=== PATIENT | male | born 1935 | race Caucasian/White ===

== ENCOUNTER 2016-09-07 14:04 | Inpatient (IN) | payer MEDICARE, OTHER ==
[2016-09-07] MEDS ORDERED: ONDANSETRON 4 MG/2 ML VIAL IVP STA (17:13)
[2016-09-07] MEDS ORDERED: SODIUM CHLORIDE 0.9% 1,000 ML IV STA ×2 (17:13→19:15)
[2016-09-07] MEDS ORDERED: FAMOTIDINE 20 MG/2 ML VIAL IV STA (17:13)
--- NOTE | 2016-09-07 17:15 | ED ---
Nausea/Vomiting/Diarrhea HPI - General Chief complaint: Nausea/Vomiting/Diarrhea Stated complaint: Dr Etta/Cristobal Pain Time Seen by Provider: 09/07/16 16:50 Source: patient Mode of arrival: wheelchair Limitations: no limitations - History of Present Illness Initial comments: Patient is an 80-year-old male with past medical history of COPD on 3 L nasal cannula presenting with nausea, vomiting, diarrhea for the past week. Patient states he is followed up with his primary care doctor who referred him to the ER. Patient states the last 24 hours he vomited 3 times. Vomit is brought in nature. Nonbloody vomit. Patient admits to 2 loose stools last 24 hours. Patient denies antibiotics, sick contacts, recent travel. Patient denies suspicious food. - Related Data Home Medications Medication Instructions Recorded Confirmed Budesonide [Pulmicort] 0.5 mg INHALATION RT-BID 12/28/13 09/07/16 Ranitidine HCl [Zantac] 150 mg PO BID 12/28/13 09/07/16 Aspirin EC [Ecotrin] 325 mg PO DAILY 02/20/16 09/07/16 Acetaminophen Tab [Tylenol] 325 - 650 mg PO Q4HR PRN 05/29/16 09/07/16 Albuterol Nebulized [Ventolin 2.5 mg INHALATION RT-Q6H 09/07/16 09/07/16 Nebulized] Atenolol [Tenormin] 25 mg PO DAILY 09/07/16 09/07/16 Diphenox-Atrop 2.5-0.025 mg 1 - 2 tab PO QID PRN 09/07/16 09/07/16 [Lomotil] traZODone HCL 50 - 100 mg PO HS PRN 09/07/16 09/07/16 Previous Rx's Medication Instructions Recorded Tamsulosin [Flomax] 0.4 mg PO [id number] #30 cap.er.24h 06/04/16 Allergies Allergy/AdvReac Type Severity Reaction Status Date / Time ceftriaxone sodium Allergy Itching Verified 09/07/16 17:10 [From Rocephin] Iodinated Contrast Media - Allergy Anaphylaxis Verified 09/07/16 17:10 Oral and [Iodinated Contrast Media - IV Dye] levofloxacin Allergy Itching Verified 09/07/16 17:10 Review of Systems ROS Statement: Those systems with pertinent positive or pertinent negative responses have been documented in the HPI. Constitutional: No fever and no chills. HENT: No congestion, no rhinorrhea and no sore throat. Eyes: No discharge and no redness. Respiratory: No cough and no shortness of breath. Cardiovascular: No chest pain and no palpitations. Gastrointestinal: Positive for nausea/vomiting/diarrhea. No abdominal pain Genitourinary: No dysuria and no hematuria. Musculoskeletal: No back pain and no arthralgias. Skin: No pallor and no rash. Neurological: No dizziness and No headaches. ROS Other: All systems not noted in ROS Statement are negative. Past Medical History Past Medical History: Cancer, Heart Failure, COPD, Deep Vein Thrombosis (DVT), GERD/Reflux, Hyperlipidemia, Hypertension, Pneumonia, Prostate Disorder Additional Past Medical History / Comment(s): 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 History of Any Multi-Drug Resistant Organisms: None Reported Past Surgical History: Appendectomy, Tonsillectomy Additional Past Surgical History / Comment(s): AAA, NAYAN ROTATOR CUFF,NAYAN THUMB SX, LARYNGOSCOPY FOR HORSENESS,LT VOCAL CORD WEAKNESS.NEEDLE ASPIRATION LT LUNG MASS WAS POSITIVE FOR CANCER -PT STATED HE COMPLETED 5 RADIATION TREATMENTS. Past Anesthesia/Blood Transfusion Reactions: No Reported Reaction Additional Past Anesthesia/Blood Transfusion Reaction / Comment(s): blood transfusion Past Psychological History: No Psychological Hx Reported Additional Psychological History / Comment(s): pt currently lives at [facility]. able to care for self cook/bath PTS DAUGHTER AND GRAND DAUGHTER ARE HELPING OUT.. 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 Smoking Status: Former smoker Past Alcohol Use History: None Reported Additional Past Alcohol Use History / Comment(s): STARTED SMOKING AT AGE 18 QUIT 2006 SMOKED 1 PPD Past Drug Use History: None Reported - Past Family History Father Family Medical History: Coronary Artery Disease (CAD) Mother Additional Family Medical History / Comment(s): ANEMIA General Exam - General Exam Comments Initial Comments: Constitutional: Patient appears well-developed and well-nourished. No distress. Actively vomiting. Head: Normocephalic and atraumatic. Eyes: Conjunctivae and EOM are normal. Right eye exhibits no discharge. Left eye exhibits no discharge. No scleral icterus. Neck: Normal range of motion. Neck supple. Cardiovascular: Normal rate and regular rhythm. No murmur heard. Pulmonary/Chest: Effort normal and breath sounds normal. No respiratory distress. No wheezes. Abdominal: Soft. No distension. There is no tenderness. There is no rebound and no guarding. Musculoskeletal: Normal range of motion. No edema or tenderness. Neurological: Patient alert and oriented to person, place, and time. Skin: Skin is warm and dry. Not diaphoretic. Nursing notes and vitals reviewed. Limitations: no limitations Course Vital Signs 09/07/16 14:41 Temperature 97.9 F Pulse Rate 63 Respiratory 18 Rate Blood Pressure 90/50 O2 Sat by Pulse 92 L Oximetry - Reevaluation(s) Reevaluation #1: 09/07/16 19:08 Patient was resting in bed. Course of stay unchanged - patient with intermittent episodes of vomiting. Denies pain. Discussed physical exam and diagnostic tests with patient. Questions answered and patient is agreeable to staying in the hospital. Medical Decision Making - Medical Decision Making Patient is a 1-year-old male with nausea vomiting diarrhea for the past week. Patient with potassium 2.5 and creatinine bumped from 1.35 to 3.29. Patient with persistent nausea and vomiting. IV fluids started. Discussed H&P and pertinent diagnostic tests with admitting physician who agrees with plan and accepts admission of patient. - Lab Data Result diagrams: 09/07/16 17:39 09/07/16 17:39 Lab Results 09/07/16 09/07/16 09/07/16 Range/Units 17:39 17:39 18:24 WBC 4.6 (3.8-10.6) k/uL RBC 4.04 L (4.30-5.90) m/uL Hgb 13.0 D (13.0-17.5) gm/dL Hct 40.1 (39.0-53.0) % MCV 99.0 (80.0-100.0) fL MCH 32.1 (25.0-35.0) pg MCHC 32.4 (31.0-37.0) g/dL RDW 14.3 (11.5-15.5) % Plt Count 236 (150-450) k/uL Neutrophils % 63 % Lymphocytes % 25 % Monocytes % 7 % Eosinophils % 3 % Basophils % 0 % Neutrophils # 2.9 (1.3-7.7) k/uL Lymphocytes # 1.2 (1.0-4.8) k/uL Monocytes # 0.3 (0-1.0) k/uL Eosinophils # 0.1 (0-0.7) k/uL Basophils # 0.0 (0-0.2) k/uL Sodium 139 (137-145) mmol/L Potassium 2.5 L* (3.5-5.1) mmol/L Chloride 95 L (98-107) mmol/L Carbon Dioxide 27 (22-30) mmol/L Anion Gap 17 mmol/L BUN 18 (9-20) mg/dL Creatinine 3.29 H (0.66-1.25) mg/dL Est GFR (MDRD) Af Amer 22 (>60 ml/min/1.73 sqM) Est GFR (MDRD) Non-Af 18 (>60 ml/min/1.73 sqM) Glucose 115 H (74-99) mg/dL Calcium 9.0 (8.4-10.2) mg/dL Magnesium 1.8 (1.6-2.3) mg/dL Total Bilirubin 0.7 (0.2-1.3) mg/dL AST 18 (17-59) U/L ALT 20 L (21-72) U/L Alkaline Phosphatase 93 (38-126) U/L Total Protein 6.3 (6.3-8.2) g/dL Albumin 3.5 (3.5-5.0) g/dL Lipase 59 (23-300) U/L Urine Color Yellow Urine Appearance Turbid (Clear) Urine pH 7.0 (5.0-8.0) Ur Specific [place] 1.010 (1.001-1.035) Urine Protein 1+ H (Negative) Urine Glucose (UA) Negative (Negative) Urine Ketones Negative (Negative) Urine Blood Small H (Negative) Urine Nitrate Positive (Negative) Urine Bilirubin Negative (Negative) Urine Urobilinogen <2.0 (<2.0) mg/dL Ur Leukocyte Esterase Large H (Negative) Urine RBC 13 H (0-5) /hpf Urine WBC >182 H (0-5) /hpf Ur Squamous Epith Cells 1 (0-4) /hpf Urine Bacteria Few H (None) /hpf Hyaline Casts 16 H (0-2) /lpf Urine Yeast (Budding) Few H (None) /hpf Disposition Clinical Impression: Dehydration, THUY (acute kidney injury), Hypokalemia, Nausea vomiting and diarrhea Disposition: ADMITTED IP TO THIS [facility] Condition: Good Referrals: Diogo Junior MD [Primary Care Provider] - 1-2 days
[2016-09-07 17:51] LABS: Basophils % (A) 0 %; CHCM 33.5; Eosinophils # (A) 0.1 k/uL (0-0.7); Eosinophils % (A) 3 %; HCT 40.1 % (39.0-53.0); HDW 3.28; Luc # (Auto) 0.11; Luc % (Auto) 3; Lymphocytes # (A) 1.2 k/uL (1.0-4.8); Lymphocytes % (A) 25 %; MCH 32.1 pg (25.0-35.0); MCHC 32.4 g/dL (31.0-37.0); Mean Platelet Volume 7.4; Monocytes # (A) 0.3 k/uL (0-1.0); Monocytes % (A) 7 %; Neutrophils # (A) 2.9 k/uL (1.3-7.7); Neutrophils % (A) 63 %; RBC 4.04 m/uL (4.30-5.90); RDW 14.3 % (11.5-15.5); WBC 4.6 k/uL (3.8-10.6); WBC (Perox) 4.62
[2016-09-07 17:58] LABS: Magnesium 1.8 mg/dL (1.6-2.3); Total Bilirubin 0.7 mg/dL (0.2-1.3); Total Protein 6.3 g/dL (6.3-8.2)
[2016-09-07 18:09] LABS: Potassium 2.5 mmol/L (3.5-5.1)
[2016-09-07] MEDS ORDERED: POTASSIUM CHLORIDE ORAL LIQUID 40 MEQ/30 ML CUP PO ONE (18:10)
[2016-09-07] MEDS ORDERED: POTASSIUM CHLORIDE 40 MEQ in WATER FOR INJECTION 1 100ML.BAG IVPB STA (18:14)
[2016-09-07 18:42] LABS: Appearance,Urine Turbid (Clear); Bacteria,Urine Few /hpf; Bilirubin,Urine Negative (Negative); Glucose,Urine (UA) Negative (Negative); Ketones,Urine Negative (Negative); Leukocyte Esterase,Urine Large (Negative); Nitrite,Urine Positive (Negative); Particle Count 23716; Protein,Urine 1+ (Negative); RBC,Urine 13 /hpf (0-5); Squamous Epithelial Cell,Urine 1 /hpf (0-4); UA Billing (MACRO vs. MICRO) MICRO; Urobilinogen,Urine <2.0 mg/dL (<2.0); WBC,Urine >182 /hpf (0-5)
[2016-09-07] MEDS ORDERED: NALOXONE 0.4 MG/ML 1 ML VIAL IV PRN (19:11)
[2016-09-07] MEDS ORDERED: SODIUM CHLORIDE 0.9% 1,000 ML IV ONE (19:11)
[2016-09-07] MEDS ORDERED: ONDANSETRON 4 MG/2 ML VIAL IVP PRN (19:11)
[2016-09-07] MEDS: BUDESONIDE 0.5 MG/2 ML NEBU INHALATION SCH (21:54)
[2016-09-07] MEDS: ALBUTEROL NEBULIZED 2.5 MG/3 ML INHALATION SCH (21:54)
[2016-09-07] MEDS: POTASSIUM CHLORIDE 10 MEQ, LIDOCAINE 2% INJ 10 MG in SODIUM CHLORIDE 0.9% 100 ML IVPB SCH (22:44)
[2016-09-08] MEDS: POTASSIUM CHLORIDE 10 MEQ, LIDOCAINE 2% INJ 10 MG in SODIUM CHLORIDE 0.9% 100 ML IVPB SCH ×7 (00:52→13:34)
[2016-09-08] MEDS: ALBUTEROL NEBULIZED 2.5 MG/3 ML INHALATION SCH ×4 (02:16→19:33)
[2016-09-08] MEDS: PANTOPRAZOLE 40 MG/10 ML VIAL IV SCH (08:22)
[2016-09-08] MEDS: ATENOLOL 25 MG TAB PO SCH (08:22)
[2016-09-08] MEDS: BUDESONIDE 0.5 MG/2 ML NEBU INHALATION SCH ×2 (09:17→19:33)
[2016-09-08] MEDS ORDERED: ACETAMINOPHEN TAB 325 MG TAB PO PRN (10:47)
[2016-09-08] MEDS ORDERED: DIPHENOX-ATROP 2.5-0.025 MG 1 EACH TAB PO PRN (10:48)
[2016-09-08] MEDS ORDERED: traZODone HCL 50 MG TAB PO PRN (10:48)
[2016-09-08] MEDS ORDERED: PANTOPRAZOLE 40 MG/10 ML VIAL IVP SCH (11:00)
--- NOTE | 2016-09-08 11:13 | P.HPIM ---
History of Present Illness H&P Date: 09/08/16 Chief Complaint: Intractable nausea vomiting diarrhea 80-year-old presented to the emergency room after being seen by his primary care provider in the office for a chief complaint of experiencing nausea vomiting diarrhea for the past week. Patient was advised to come to the emergency room to be evaluated for the above-mentioned symptoms. Patient stated that he had been vomiting and had vomited at least 3 times in the last 24 hours and had 2 loose stools. There was no blood noted in the vomit that was no blood noted in the stool. Patient admits to poor oral intake. Patient also states he has been feeling fatigued no appetite patient has a history of COPD uses supplemental home oxygen 3 L [id number]. Additionally the patient has a history of lung cancer which the patient has completed radiation treatment. Patient stated he was not experiencing any shortness of breath just the intractable nausea vomiting and loose stool. In the emergency room the temp is 97.9 heart rate was in the 60s. Patient's potassium was 2.5 the creatinine was up to 3.2. Hemoglobin stable at 13. Given the above clinical presentation the patient was advised to be admitted to the hospital for further evaluation. IV fluid has been initiated. Patient has had 2 loose stools with no blood noted since 7 AM. There is been adequate urine output patient has an indwelling Akins catheter which is chronic. Patient states he has not been on any antibiotic therapy. Patient also reports there is been no new medication changes. Patient states he gets his indwelling Akins catheter changed monthly and is due to be changed tomorrow on the Review of Systems Essentially unremarkable except as mentioned in the present illness Past Medical History Past Medical History: Cancer, Heart Failure, COPD, Deep Vein Thrombosis (DVT), GERD/Reflux, Hyperlipidemia, Hypertension, Pneumonia, Prostate Disorder Additional Past Medical History / Comment(s): 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 History of Any Multi-Drug Resistant Organisms: None Reported Past Surgical History: Appendectomy, Tonsillectomy Additional Past Surgical History / Comment(s): AAA, NAYAN ROTATOR CUFF,NAYAN THUMB SX, LARYNGOSCOPY FOR HORSENESS,LT VOCAL CORD WEAKNESS.NEEDLE ASPIRATION LT LUNG MASS WAS POSITIVE FOR CANCER -PT STATED HE COMPLETED 5 RADIATION TREATMENTS. Past Anesthesia/Blood Transfusion Reactions: No Reported Reaction Additional Past Anesthesia/Blood Transfusion Reaction / Comment(s): blood transfusion Past Psychological History: No Psychological Hx Reported Additional Psychological History / Comment(s): pt currently lives at [facility]. able to care for self cook/bath PTS DAUGHTER AND GRAND DAUGHTER ARE HELPING OUT.. 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 Smoking Status: Former smoker Past Alcohol Use History: None Reported Additional Past Alcohol Use History / Comment(s): STARTED SMOKING AT AGE 18 QUIT 2006 SMOKED 1 PPD Past Drug Use History: None Reported - Past Family History Father Family Medical History: Coronary Artery Disease (CAD) Mother Additional Family Medical History / Comment(s): ANEMIA Medications and Allergies Home Medications Medication Instructions Recorded Confirmed Type Budesonide [Pulmicort] 0.5 mg INHALATION RT-BID 12/28/13 09/07/16 History Ranitidine HCl [Zantac] 150 mg PO BID 12/28/13 09/07/16 History Aspirin EC [Ecotrin] 325 mg PO DAILY 02/20/16 09/07/16 History Acetaminophen Tab [Tylenol] 325 - 650 mg PO Q4HR PRN 05/29/16 09/07/16 History Albuterol Nebulized [Ventolin 2.5 mg INHALATION RT-Q6H 09/07/16 09/07/16 History Nebulized] Atenolol [Tenormin] 25 mg PO DAILY 09/07/16 09/07/16 History Diphenox-Atrop 2.5-0.025 mg 1 - 2 tab PO QID PRN 09/07/16 09/07/16 History [Lomotil] traZODone HCL 50 - 100 mg PO HS PRN 09/07/16 09/07/16 History Allergies Allergy/AdvReac Type Severity Reaction Status Date / Time ceftriaxone sodium Allergy Itching Verified 09/07/16 17:10 [From Rocephin] Iodinated Contrast Media - Allergy Anaphylaxis Verified 09/07/16 17:10 Oral and [Iodinated Contrast Media - IV Dye] levofloxacin Allergy Itching Verified 09/07/16 17:10 Physical Exam Vitals: Vital Signs Temp Pulse Pulse Resp BP BP Pulse Ox 09/08/16 09:30 70 09/08/16 09:18 64 09/08/16 08:00 97 F L 50 L 16 109/56 93 L 09/08/16 04:00 97.0 F L 72 18 91/50 99 09/08/16 00:00 97.1 F L 73 18 102/58 98 09/07/16 22:12 70 09/07/16 21:55 70 09/07/16 19:59 98.0 F 67 16 115/56 96 Intake and Output 09/07/16 09/08/16 09/08/16 22:59 06:59 14:59 Other: Voiding Method Indwelling Catheter Indwelling Catheter # Bowel Movements 4 Weight 42.184 kg 48 kg 48 kg Patient Weight 09/09/16 06:59 Weight 48 kg GENERAL APPEARANCE: 80-year-old male patient is alert, oriented, in no acute distress. Sitting up in bed states less nausea no active vomiting VITAL SIGNS: Reviewed HEENT: Head is normocephalic and atraumatic. Pupils are equal and reactive. The nares are patent. Oropharynx is clear without lesions. NECK: Supple without lymphadenopathy. Traches midline. HEART: S1, S2. Regular rate and rhythm. Denying chest pain LUNGS: No audible wheezing no shortness of breath at rest no cough noted nasal cannula 3 L keeping a sat of 93% ABDOMEN: Soft, nontender, nondistended with good bowel sounds. No peritoneal signs. No palpable organomegaly or masses. Indwelling Akins catheter in place. This been 2 loose stools since 7 AM with 4 loose stools during the night no blood noted in the stool EXTREMITIES: Normal skin color and turgor. No cyanosis, rash, ulceration, clubbing or edema. Radial pedal pulses are 2/4 bilaterally. NEUROLOGICAL: No focal deficits. Strength and sensation are grossly intact. Results CBC & Chem 7: 09/07/16 17:39 09/08/16 06:11 Labs: Abnormal Lab Results - Last 24 Hours (Table) 09/08/16 Range/Units 06:11 Potassium 3.0 L* (3.5-5.1) mmol/L Thrombosis Risk Factor Assmnt - Choose All That Apply Each Risk Factor Represents 3 Points: Age 75 years or older Thrombosis Risk Factor Assessment Total Risk Factor Score: 3 Thrombosis Risk Factor Assessment Level: Moderate Risk Assessment and Plan Plan: Impression Present on admission intractable nausea vomiting diarrhea with clinical dehydration unclear etiology Present on admission severe electrolyte imbalance hypokalemic suspect due to intractable nausea vomiting diarrhea History of urinary retention with chronic indwelling Akins catheter changed monthly echocardiogram May 2016 EF 50-55% History of a left lung mass with needle biopsy confirmed cancer status post radiation treatment completed August 2015 History of nicotine dependency quit in 2005 smoke one pack a day greater than 40 year history Acute on chronic hypoxic respiratory failure Present on admission acute kidney injury suspect due to volume depletion Chronic kidney disease stage III likely due to nephrosclerosis 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 diff stool culture ovarian parasites DVT and GI prophylaxis Resume respiratory treatments as ordered Further or conditions pending will follow The above dictated assessment and findings were discussed with Dr. Junior. Impression and the plan of care have been dictated as directed. Paula Chavarria nurse practitioner acting as a scribe for Dr. Junior
[2016-09-08] MEDS: guaiFENesin-Coden 100-10MG/5ML 10 ML CUP PO PRN ×3 (11:15→23:41)
[2016-09-08] MEDS: SODIUM CHLORIDE 0.9% 1,000 ML IV SCH ×2 (11:15→23:41)
--- NOTE | 2016-09-08 12:10 | P.NPCON ---
History of Present Illness - Reason for Consult acute renal failure - History of Present Illness Reason for consultation: Acute kidney injury History of present illness: Patient is a 80-year-old male seen in renal consultation for acute kidney injury. His creatinine was elevated at 3.29 at the time of admission. He was also hypotensive with systolic blood pressure in the 90s. He presented with nausea vomiting and diarrhea going on for the last week or so. He has not been tolerating any oral intake. He has a chronic Akins catheter in place and has been nonoliguric. Denies any chest pain or shortness of breath. No lower extremity edema. He was also hypokalemic with a potassium level of 2.5 which was aggressively replaced and is improved to 3.0 this morning. No vomiting since admission. Did have loose bowel movement this morning. Denies use of NSAIDs at home. Denies any prior history of renal disease. Vital signs are stable. General: The patient appeared well nourished and normally developed. HEENT: Head exam is unremarkable. Neck is without jugular venous distension. LUNGS: Lungs are clear to auscultation and percussion. Breath sounds decreased. HEART: Rate and Rhythm are regular. First and second heart sounds normal. No murmurs, rubs or gallops. ABDOMEN: Abdominal exam reveals normal bowel sounds. Non-tender and non- distended. No evidence of peritonitis. EXTREMITITES: No clubbing, cyanosis, or edema. Past Medical History Past Medical History: Cancer, Heart Failure, COPD, Deep Vein Thrombosis (DVT), GERD/Reflux, Hyperlipidemia, Hypertension, Pneumonia, Prostate Disorder Additional Past Medical History / Comment(s): 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 History of Any Multi-Drug Resistant Organisms: None Reported Past Surgical History: Appendectomy, Tonsillectomy Additional Past Surgical History / Comment(s): AAA, NAYAN ROTATOR CUFF,NAYAN THUMB SX, LARYNGOSCOPY FOR HORSENESS,LT VOCAL CORD WEAKNESS.NEEDLE ASPIRATION LT LUNG MASS WAS POSITIVE FOR CANCER -PT STATED HE COMPLETED 5 RADIATION TREATMENTS. Past Anesthesia/Blood Transfusion Reactions: No Reported Reaction Additional Past Anesthesia/Blood Transfusion Reaction / Comment(s): blood transfusion Past Psychological History: No Psychological Hx Reported Additional Psychological History / Comment(s): pt currently lives at [facility]. able to care for self cook/bath PTS DAUGHTER AND GRAND DAUGHTER ARE HELPING OUT.. 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 Smoking Status: Former smoker Past Alcohol Use History: None Reported Additional Past Alcohol Use History / Comment(s): STARTED SMOKING AT AGE 18 QUIT 2006 SMOKED 1 PPD Past Drug Use History: None Reported - Past Family History Father Family Medical History: Coronary Artery Disease (CAD) Mother Additional Family Medical History / Comment(s): ANEMIA Medications and Allergies Home Medications Medication Instructions Recorded Confirmed Type Budesonide [Pulmicort] 0.5 mg INHALATION RT-BID 12/28/13 09/07/16 History Ranitidine HCl [Zantac] 150 mg PO BID 12/28/13 09/07/16 History Aspirin EC [Ecotrin] 325 mg PO DAILY 02/20/16 09/07/16 History Acetaminophen Tab [Tylenol] 325 - 650 mg PO Q4HR PRN 05/29/16 09/07/16 History Albuterol Nebulized [Ventolin 2.5 mg INHALATION RT-Q6H 09/07/16 09/07/16 History Nebulized] Atenolol [Tenormin] 25 mg PO DAILY 09/07/16 09/07/16 History Diphenox-Atrop 2.5-0.025 mg 1 - 2 tab PO QID PRN 09/07/16 09/07/16 History [Lomotil] traZODone HCL 50 - 100 mg PO HS PRN 09/07/16 09/07/16 History Allergies Allergy/AdvReac Type Severity Reaction Status Date / Time ceftriaxone sodium Allergy Itching Verified 09/07/16 17:10 [From Rocephin] Iodinated Contrast Media - Allergy Anaphylaxis Verified 09/07/16 17:10 Oral and [Iodinated Contrast Media - IV Dye] levofloxacin Allergy Itching Verified 09/07/16 17:10 Physical Exam Vitals: Vital Signs Temp Pulse Pulse Resp BP BP Pulse Ox 09/08/16 09:30 70 09/08/16 09:18 64 09/08/16 08:00 97 F L 50 L 16 109/56 93 L 09/08/16 04:00 97.0 F L 72 18 91/50 99 09/08/16 00:00 97.1 F L 73 18 102/58 98 09/07/16 22:12 70 09/07/16 21:55 70 09/07/16 19:59 98.0 F 67 16 115/56 96 Intake and Output 09/07/16 09/08/16 09/08/16 22:59 06:59 14:59 Other: Voiding Method Indwelling Catheter Indwelling Catheter # Bowel Movements 4 Weight 42.184 kg 48 kg 48 kg Patient Weight 09/09/16 06:59 Weight 48 kg Results - Lab Results Most recent lab results Calcium 9.0 mg/dL (8.4-10.2) 09/07/16 17:39 Magnesium 1.8 mg/dL (1.6-2.3) 09/07/16 17:39 09/07/16 17:39 09/08/16 06:11 Assessment and Plan Plan: Assessment: #1. Nonoliguric acute kidney injury mostly prerenal in nature secondary to severe intravascular volume depletion secondary to vomiting and diarrhea as well as hypotension. Creatinine 3.29 on admission. Baseline creatinine is near 1. #2. Hypokalemia secondary to GI as well as renal losses. Magnesium level I.8. #3. History of urinary retention with a chronic indwelling Akins catheter in place. #4. Intractable nausea vomiting and diarrhea. Likely viral syndrome. Improved. Plan: Continue normal saline to be run at 75 mL an hour. Replace potassium. Recheck in the evening. Check renal ultrasound. Avoid nephrotoxic agents and hypotensive episodes. Repeat electrolytes in the morning. Akins catheter is changed every month and is due to be changed tomorrow. Will get it changed this admission. Thank you for the consultation. I will continue to follow the patient with you during his hospital stay.
--- NOTE | 2016-09-08 16:43 | US ---
EXAMINATION TYPE: US kidneys/renal and bladder DATE OF EXAM: 09/08/2016 12:38 PM COMPARISON: Prior exam dated 14 June 2014 ultrasound kidneys and bladder, CT scan 29 May 2016 abdomen pelvis CLINICAL HISTORY: lily. EXAM MEASUREMENTS: Right Kidney: 8.0 x 4.1 x 3.4 cm Left Kidney: 7.3 x 4.1 x 4.0 cm TECHNOLOGIST IMPRESSION: wnl Right Kidney: cyst noted 1.7 x 1.9 x 1.8, atrophied kidney, cortical thinning is present. Left Kidney: atrophied kidney the left kidney measures 7.3 cm, there is increased cortical echogenici ty, cortical thinning is present bilaterally. Bladder: navas Simple cyst midpole right kidney is stable. Small right kidney size. No hydronephrosis. IMPRESSION: Similar findings to previous exam. Findings compatible with chronic medical renal disease.
--- NOTE | 2016-09-09 05:09 | HP ---
DATE OF ADMISSION: CHIEF COMPLAINT: CA of the lung. HISTORY OF PRESENT ILLNESS: This is another admission for this 80-year-old white male. He came to the office after he had nausea and vomiting with diarrhea for several days. He had lost 11 pounds in a week. He was admitted. He was found to have potassium 2.9 and his creatinine was up to over 3. REVIEW OF SYSTEMS: He had no headache, confusion, fever, chills, cough, hemoptysis, hematemesis, melena, hematochezia, jaundice, etc. Past medical history, family history and personal and social histories are all otherwise unremarkable or noncontributory or unchanged. He has terminal CA of the lung. PHYSICAL EXAMINATION: Blood pressure was 96/40 with a pulse of 76 and regular, respirations 15, and temperature 99. GENERAL: He appeared to be pale and dehydrated. He was acutely ill in appearance. Skins was dry. Lymph nodes are not enlarged. Head, ears, eyes, nose, mouth, and throat were normal. Neck veins not distended. Thyroid was not enlarged. Chest is clear, but breath sounds are diminished throughout. Cardiac exam demonstrated sinus rhythm. The abdomen is scaphoid and nontender. Bowel sounds were heard. EXTREMITIES: Normal. NEUROLOGICAL: He is intact. He was dehydrated. IMPRESSION: 1. Dehydration. 2. Gastroenteritis with vomiting and diarrhea. 3. Electrolyte imbalance. 4. Prerenal azotemia. 5. Chronic obstructive pulmonary disease. 6. Cancer of the lung. PLAN: 1. Bed rest. 2. IV fluids. 3. Correct electrolyte imbalance.
--- NOTE | 2016-09-09 05:11 | PN ---
DATE OF SERVICE: 09/08/2016 CHIEF COMPLAINT: Renal failure, dehydration, and gastroenteritis with CA of the lung. HISTORY OF PRESENT ILLNESS: This gentleman is not doing much better. Potassium has been corrected and creatinine is starting to come down. He is still nauseated. He is not eating or drinking. PHYSICAL EXAM: He is still dehydrated. Breath sounds are poor. Cardiac exam is normal and unchanged. Abdomen is soft. IMPRESSION: 1. Gastroenteritis. 2. Dehydration. 3. Prerenal azotemia. 4. Chronic obstructive pulmonary disease. 5. Cancer of the lung. PLAN: Continue with rehydration.
[2016-09-09 06:45] LABS: Calcium 7.8 mg/dL (8.4-10.2); Potassium 3.3 mmol/L (3.5-5.1); Total Bilirubin 0.6 mg/dL (0.2-1.3); Total Protein 4.3 g/dL (6.3-8.2)
[2016-09-09 06:56] LABS: Basophils % (A) 1 %; CH 32.4; CHCM 32.2; Eosinophils # (A) 0.5 k/uL (0-0.7); Eosinophils % (A) 15 %; HCT 30.1 % (39.0-53.0); HDW 3.23; Hypochromasia Slight; Luc # (Auto) 0.04; Luc % (Auto) 1; Lymphocytes # (A) 0.7 k/uL (1.0-4.8); Lymphocytes % (A) 19 %; MCH 32.5 pg (25.0-35.0); MCV 101.5 fL (80.0-100.0); Macrocytosis Slight; Monocytes # (A) 0.3 k/uL (0-1.0); Monocytes % (A) 8 %; Neutrophils # (A) 2.1 k/uL (1.3-7.7); Neutrophils % (A) 56 %; RBC 2.97 m/uL (4.30-5.90); RDW 14.5 % (11.5-15.5); WBC 3.7 k/uL (3.8-10.6); WBC (Perox) 3.72
[2016-09-09] MEDS ORDERED: Potassium Replacement Protocol 1 EACH MISC MISCELLANE PRN (07:02)
[2016-09-09 07:32] LABS: HGB 9.6 gm/dL (13.0-17.5)
[2016-09-09 07:40] LABS: Amorphous Sediment,Urine Occasional /hpf; Appearance,Urine Turbid (Clear); Bacteria,Urine Many /hpf; Bilirubin,Urine Negative (Negative); Glucose,Urine (UA) Negative (Negative); Ketones,Urine Trace (Negative); Leukocyte Esterase,Urine Large (Negative); Nitrite,Urine Positive (Negative); PH, Urine 8.5 (5.0-8.0); Particle Count 63095; Protein,Urine 3+ (Negative); RBC,Urine 9 /hpf (0-5); Specific Gravity,Urine 1.011 (1.001-1.035); Squamous Epithelial Cell,Urine 3 /hpf (0-4); UA Billing (MACRO vs. MICRO) MICRO; Urobilinogen,Urine <2.0 mg/dL (<2.0); WBC,Urine 60 /hpf (0-5)
[2016-09-09] MEDS ORDERED: POTASSIUM CHLORIDE ER 20 MEQ TAB.ER PO SCH (08:00)
[2016-09-09] MEDS: BUDESONIDE 0.5 MG/2 ML NEBU INHALATION SCH ×2 (08:08→20:15)
[2016-09-09] MEDS: ALBUTEROL NEBULIZED 2.5 MG/3 ML INHALATION SCH ×4 (08:09→20:15)
[2016-09-09] MEDS: ASPIRIN 325 MG TAB PO SCH (08:32)
[2016-09-09] MEDS: PANTOPRAZOLE 40 MG/10 ML VIAL IV SCH (08:32)
[2016-09-09] MEDS: TAMSULOSIN 0.4 MG CAP.ER.24H PO SCH (08:33)
[2016-09-09] MEDS: ATENOLOL 25 MG TAB PO SCH (08:33)
[2016-09-09] MEDS: POTASSIUM CHLORIDE 20 MEQ, LIDOCAINE 2% INJ 20 MG in SODIUM CHLORIDE 0.9% 100 ML IVPB SCH ×2 (08:34→12:42)
[2016-09-09] MEDS: POTASSIUM CHLORIDE ER 20 MEQ TAB.ER PO SCH ×2 (08:34→12:43)
--- NOTE | 2016-09-09 09:19 | P.PN ---
Subjective Patient is seen in follow-up for acute kidney injury. Patient presented with nausea vomiting and diarrhea going on for the past 1 week. He was also somewhat hypotensive on admission. He continues to have diarrhea. Appetite remains poor. His creatinine was re-0.2 and at the time of admission and is improved to 2.03 today. Denies chest pain or shortness of breath. Vital signs are stable. General: The patient appeared well nourished and normally developed. HEENT: Head exam is unremarkable. Neck is without jugular venous distension. LUNGS: Lungs are clear to auscultation and percussion. Breath sounds decreased. HEART: Rate and Rhythm are regular. First and second heart sounds normal. No murmurs, rubs or gallops. ABDOMEN: Abdominal exam reveals normal bowel sounds. Non-tender and non- distended. No evidence of peritonitis. EXTREMITITES: No clubbing, cyanosis, or edema. Objective - Vital Signs Vital signs: Vital Signs Temp 97.1 F L 09/09/16 08:00 Pulse 70 09/09/16 08:24 Resp 16 09/09/16 08:00 BP 106/56 09/09/16 08:00 Pulse Ox 97 09/09/16 08:10 Intake & Output 09/08/16 09/09/16 09/09/16 18:59 06:59 18:59 Intake Total 960 Output Total 800 1100 Balance -800 -140 Weight 48 kg 45.9 kg Intake: IV 300 Sodium Chloride 0.9% 1, 300 000 ml @ 75 mls/hr IV . [id number] KEL Rx#:[id number] Intake, IV Titration 300 Amount Sodium Chloride 0.9% 1, 300 000 ml @ 75 mls/hr IV . [id number] KEL Rx#:[id number] Oral 360 Output: Urine 800 1100 Other: Voiding Method Indwelling Catheter Indwelling Catheter # Voids 2 # Bowel Movements 1 2 - Labs CBC & Chem 7: 09/09/16 05:50 09/09/16 05:50 Labs: Abnormal Lab Results - Last 24 Hours (Table) 09/09/16 09/09/16 09/09/16 Range/Units 05:50 05:50 06:30 WBC 3.7 L (3.8-10.6) k/uL RBC 2.97 L (4.30-5.90) m/uL Hgb 9.6 L D (13.0-17.5) gm/dL Hct 30.1 L (39.0-53.0) % MCV 101.5 H (80.0-100.0) fL Lymphocytes # 0.7 L (1.0-4.8) k/uL Potassium 3.3 L (3.5-5.1) mmol/L Chloride 113 H (98-107) mmol/L Creatinine 2.03 H (0.66-1.25) mg/dL Glucose 66 L (74-99) mg/dL Calcium 7.8 L (8.4-10.2) mg/dL Total Protein 4.3 L (6.3-8.2) g/dL Albumin 2.2 L (3.5-5.0) g/dL Urine pH 8.5 H (5.0-8.0) Urine Protein 3+ H (Negative) Urine Ketones Trace H (Negative) Ur Leukocyte Esterase Large H (Negative) Urine RBC 9 H (0-5) /hpf Urine WBC 60 H (0-5) /hpf Amorphous Sediment Occasional H (None) /hpf Urine Bacteria Many H (None) /hpf Assessment and Plan Plan: Assessment: #1. Nonoliguric acute kidney injury mostly prerenal in nature secondary to severe intravascular volume depletion secondary to vomiting and diarrhea as well as hypotension. Creatinine 3.29 on admission. Improved to 2.03 today. Baseline creatinine is near 1. #2. Hypokalemia secondary to GI as well as renal losses. Magnesium level I.8. #3. History of urinary retention with a chronic indwelling Akins catheter in place. #4. Intractable nausea vomiting and diarrhea. Likely viral syndrome. Improved. #5. Anemia. Hemoglobin down to 9.6. Rule out iron deficiency. Stool for occult blood positive. #6. 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 Renal ultrasound reveals small sized kidneys with cortical thinning suggestive of underlying chronic kidney disease. Plan: Maintain normal saline to be run at 75 mL an hour. Replace potassium. Avoid nephrotoxic agents and hypotensive episodes. Repeat electrolytes in the morning. Akins catheter is changed every month and is due to be changed today. Monitor hemoglobin closely. Check iron studies.
[2016-09-09] MEDS ORDERED: PEG 3350-NA SULF,BICARB,CL/KCL 4,000 ML BOTTLE PO ONE (11:36)
--- NOTE | 2016-09-09 11:40 | P.GSCN ---
History of Present Illness Consult date: 09/09/16 Reason for Consult: GI bleed History of present illness: Patient presents to the hospital once again with the complaints of diarrhea. It is black in color. He is heme positive. He has had 2 prior recent hospitalizations for perianal discomfort with rectal bleeding. An outpatient colonoscopy was advised but the patient did not follow through with his outpatient appointments. We are now asked to see this patient for endoscopy. He is now agreeable. He did have a colonoscopy in the past that was normal. He believes he also has had ulcers in the past. Hemoglobin did drop to 9.6. Review of Systems The patient denies any acute changes in his vision or hearing, no dysphagia or odynophagia, no chest pain or shortness of breath, no dysuria or hematuria, no headache, no runny nose, no unexplained weight loss Past Medical History Past Medical History: Cancer, Heart Failure, COPD, Deep Vein Thrombosis (DVT), GERD/Reflux, Hyperlipidemia, Hypertension, Pneumonia, Prostate Disorder Additional Past Medical History / Comment(s): 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 History of Any Multi-Drug Resistant Organisms: None Reported Past Surgical History: Appendectomy, Tonsillectomy Additional Past Surgical History / Comment(s): AAA, NAYAN ROTATOR CUFF,NAYAN THUMB SX, LARYNGOSCOPY FOR HORSENESS,LT VOCAL CORD WEAKNESS.NEEDLE ASPIRATION LT LUNG MASS WAS POSITIVE FOR CANCER -PT STATED HE COMPLETED 5 RADIATION TREATMENTS. Past Anesthesia/Blood Transfusion Reactions: No Reported Reaction Additional Past Anesthesia/Blood Transfusion Reaction / Comm: blood transfusion Past Psychological History: No Psychological Hx Reported Additional Psychological History / Comment(s): pt currently lives at [facility]. able to care for self cook/bath PTS DAUGHTER AND GRAND DAUGHTER ARE HELPING OUT.. 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 Smoking Status: Former smoker Past Alcohol Use History: None Reported Additional Past Alcohol Use History / Comment(s): STARTED SMOKING AT AGE 18 QUIT 2006 SMOKED 1 PPD Past Drug Use History: None Reported - Past Family History Father Family Medical History: Coronary Artery Disease (CAD) Mother Additional Family Medical History / Comment(s): ANEMIA Medications and Allergies Home Medications Medication Instructions Recorded Confirmed Type Budesonide [Pulmicort] 0.5 mg INHALATION RT-BID 12/28/13 09/07/16 History Ranitidine HCl [Zantac] 150 mg PO BID 12/28/13 09/07/16 History Aspirin EC [Ecotrin] 325 mg PO DAILY 02/20/16 09/07/16 History Acetaminophen Tab [Tylenol] 325 - 650 mg PO Q4HR PRN 05/29/16 09/07/16 History Albuterol Nebulized [Ventolin 2.5 mg INHALATION RT-Q6H 09/07/16 09/07/16 History Nebulized] Atenolol [Tenormin] 25 mg PO DAILY 09/07/16 09/07/16 History Diphenox-Atrop 2.5-0.025 mg 1 - 2 tab PO QID PRN 09/07/16 09/07/16 History [Lomotil] traZODone HCL 50 - 100 mg PO HS PRN 09/07/16 09/07/16 History Allergies Allergy/AdvReac Type Severity Reaction Status Date / Time ceftriaxone sodium Allergy Itching Verified 09/07/16 17:10 [From Rocephin] Iodinated Contrast Media - Allergy Anaphylaxis Verified 09/07/16 17:10 Oral and [Iodinated Contrast Media - IV Dye] levofloxacin Allergy Itching Verified 09/07/16 17:10 Surgical - Exam Vital Signs Temp Pulse Resp BP Pulse Ox 97.9 F 63 18 90/50 92 L 09/07/16 14:41 09/07/16 14:41 09/07/16 14:41 09/07/16 14:41 09/07/16 14:41 Physical exam: General: Well-developed, well-nourished HEENT: Normocephalic, sclerae nonicteric Abdomen: Nontender, nondistended Extremities: No edema Neuro: Alert and oriented Results - Labs 09/09/16 05:50 09/09/16 05:50 Abnormal Lab Results - Last 24 Hours (Table) 09/09/16 09/09/16 09/09/16 Range/Units 05:50 05:50 06:30 WBC 3.7 L (3.8-10.6) k/uL RBC 2.97 L (4.30-5.90) m/uL Hgb 9.6 L D (13.0-17.5) gm/dL Hct 30.1 L (39.0-53.0) % MCV 101.5 H (80.0-100.0) fL Lymphocytes # 0.7 L (1.0-4.8) k/uL Potassium 3.3 L (3.5-5.1) mmol/L Chloride 113 H (98-107) mmol/L Creatinine 2.03 H (0.66-1.25) mg/dL Glucose 66 L (74-99) mg/dL Calcium 7.8 L (8.4-10.2) mg/dL Total Protein 4.3 L (6.3-8.2) g/dL Albumin 2.2 L (3.5-5.0) g/dL Urine pH 8.5 H (5.0-8.0) Urine Protein 3+ H (Negative) Urine Ketones Trace H (Negative) Ur Leukocyte Esterase Large H (Negative) Urine RBC 9 H (0-5) /hpf Urine WBC 60 H (0-5) /hpf Amorphous Sediment Occasional H (None) /hpf Urine Bacteria Many H (None) /hpf Diabetes panel 09/08/16 09/09/16 Range/Units 15:14 05:50 Sodium 145 (137-145) mmol/L Potassium 3.8 3.3 L (3.5-5.1) mmol/L Chloride 113 H (98-107) mmol/L Carbon Dioxide 22 (22-30) mmol/L BUN 11 (9-20) mg/dL Creatinine 2.03 H (0.66-1.25) mg/dL Glucose 66 L (74-99) mg/dL Calcium 7.8 L (8.4-10.2) mg/dL AST 22 (17-59) U/L ALT 25 (21-72) U/L Alkaline Phosphatase 58 (38-126) U/L Total Protein 4.3 L (6.3-8.2) g/dL Albumin 2.2 L (3.5-5.0) g/dL Calcium panel 09/09/16 Range/Units 05:50 Calcium 7.8 L (8.4-10.2) mg/dL Albumin 2.2 L (3.5-5.0) g/dL Pituitary panel 09/08/16 09/09/16 Range/Units 15:14 05:50 Sodium 145 (137-145) mmol/L Potassium 3.8 3.3 L (3.5-5.1) mmol/L Chloride 113 H (98-107) mmol/L Carbon Dioxide 22 (22-30) mmol/L BUN 11 (9-20) mg/dL Creatinine 2.03 H (0.66-1.25) mg/dL Glucose 66 L (74-99) mg/dL Calcium 7.8 L (8.4-10.2) mg/dL Adrenal panel 09/08/16 09/09/16 Range/Units 15:14 05:50 Sodium 145 (137-145) mmol/L Potassium 3.8 3.3 L (3.5-5.1) mmol/L Chloride 113 H (98-107) mmol/L Carbon Dioxide 22 (22-30) mmol/L BUN 11 (9-20) mg/dL Creatinine 2.03 H (0.66-1.25) mg/dL Glucose 66 L (74-99) mg/dL Calcium 7.8 L (8.4-10.2) mg/dL Total Bilirubin 0.6 (0.2-1.3) mg/dL AST 22 (17-59) U/L ALT 25 (21-72) U/L Alkaline Phosphatase 58 (38-126) U/L Total Protein 4.3 L (6.3-8.2) g/dL Albumin 2.2 L (3.5-5.0) g/dL Assessment and Plan (1) Lower GI hemorrhage Narrative/Plan: Proceed with upper and lower endoscopy tomorrow. The risks of bleeding and perforation were discussed. Status: Acute
--- NOTE | 2016-09-09 13:00 | P.PN ---
Subjective 80-year-old male being seen on rounds. Patient continues to report having loose black stools. 1 stool did come back Hemoccult-positive. A surgical consultation has been requested. Patient has seen Dr. preston in the past. Hemoglobin this morning is down to 9.6. The admitting hemoglobin 13.6. Patient currently reports the nausea vomiting has subsided and is taking a diet with no further episodes. Does continue to report loose stooling Patient initial presentation to the emergency room with intractable nausea vomiting frequent stooling ongoing for the past week. Patient stated that he could not keep food down oral liquids. Became more symptomatic. The creatinine on admission was up to 3. Additionally patient reported at home he noted his stools to be black. Given the above clinical presentation the patient was admitted to the services of the attending and nephrology consultation had been requested. The creatinine this morning is improved 2. Patient reports that he was set up in the outpatient setting to have endoscopic done but did not follow through. Is also noted the patient has had 2 prior recent hospitalization for perianal discomfort with rectal bleeding. Patient stated that he had been doing relatively well up until this current event. Patient states years ago he did have a colonoscopy and was told there were no acute findings Objective - Vital Signs Vital signs: Vital Signs Temp 98.1 F 09/09/16 12:00 Pulse 70 09/09/16 12:00 Resp 16 09/09/16 12:00 BP 94/52 09/09/16 12:00 Pulse Ox 99 09/09/16 12:00 Intake & Output 09/08/16 09/09/16 09/09/16 18:59 06:59 18:59 Intake Total 960 Output Total 800 1100 Balance -800 -140 Weight 48 kg 45.9 kg Intake: IV 300 Sodium Chloride 0.9% 1, 300 000 ml @ 75 mls/hr IV . [id number] KEL Rx#:[id number] Intake, IV Titration 300 Amount Sodium Chloride 0.9% 1, 300 000 ml @ 75 mls/hr IV . [id number] KEL Rx#:[id number] Oral 360 Output: Urine 800 1100 Other: Voiding Method Indwelling Catheter Indwelling Catheter Indwelling Catheter # Voids 2 # Bowel Movements 1 2 - Exam GENERAL APPEARANCE: 80-year-old male patient is alert, oriented, in no acute distress. Sitting up taking a lunch tray states the nausea vomiting has resolved no abdominal pain reports continues to have black colored stool VITAL SIGNS: Reviewed HEENT: Head is normocephalic and atraumatic. Pupils are equal and reactive. The nares are patent. Oropharynx is clear without lesions. NECK: Supple without lymphadenopathy. Traches midline. HEART: S1, S2. Regular rate and rhythm. Monitor sinus with PACs and PVCs LUNGS: No crackles or wheezes are heard. Sats are 97% on 2 L ABDOMEN: Soft, nontender, nondistended with good bowel sounds. No peritoneal signs. No palpable organomegaly or masses. EXTREMITIES: Normal skin color and turgor. No cyanosis, rash, ulceration, clubbing or edema. Radial pedal pulses are 2/4 bilaterally. NEUROLOGICAL: No focal deficits. Strength and sensation are grossly intact. - Labs CBC & Chem 7: 09/09/16 05:50 09/09/16 05:50 Labs: Abnormal Lab Results - Last 24 Hours (Table) 09/09/16 09/09/16 09/09/16 Range/Units 05:50 05:50 05:50 WBC 3.7 L (3.8-10.6) k/uL RBC 2.97 L (4.30-5.90) m/uL Hgb 9.6 L D (13.0-17.5) gm/dL Hct 30.1 L (39.0-53.0) % MCV 101.5 H (80.0-100.0) fL Lymphocytes # 0.7 L (1.0-4.8) k/uL Potassium 3.3 L (3.5-5.1) mmol/L Chloride 113 H (98-107) mmol/L Creatinine 2.03 H (0.66-1.25) mg/dL Glucose 66 L (74-99) mg/dL Calcium 7.8 L (8.4-10.2) mg/dL Iron 34 L (49-181) ug/dL TIBC 162 L (261-462) ug/dL Total Protein 4.3 L (6.3-8.2) g/dL Albumin 2.2 L (3.5-5.0) g/dL Urine pH (5.0-8.0) Urine Protein (Negative) Urine Ketones (Negative) Ur Leukocyte Esterase (Negative) Urine RBC (0-5) /hpf Urine WBC (0-5) /hpf Amorphous Sediment (None) /hpf Urine Bacteria (None) /hpf 09/09/16 Range/Units 06:30 WBC (3.8-10.6) k/uL RBC (4.30-5.90) m/uL Hgb (13.0-17.5) gm/dL Hct (39.0-53.0) % MCV (80.0-100.0) fL Lymphocytes # (1.0-4.8) k/uL Potassium (3.5-5.1) mmol/L Chloride (98-107) mmol/L Creatinine (0.66-1.25) mg/dL Glucose (74-99) mg/dL Calcium (8.4-10.2) mg/dL Iron (49-181) ug/dL TIBC (261-462) ug/dL Total Protein (6.3-8.2) g/dL Albumin (3.5-5.0) g/dL Urine pH 8.5 H (5.0-8.0) Urine Protein 3+ H (Negative) Urine Ketones Trace H (Negative) Ur Leukocyte Esterase Large H (Negative) Urine RBC 9 H (0-5) /hpf Urine WBC 60 H (0-5) /hpf Amorphous Sediment Occasional H (None) /hpf Urine Bacteria Many H (None) /hpf Microbiology - Last 24 Hours (Table) 09/09/16 06:30 Urine Culture - Preliminary Urine,Catheterized Assessment and Plan Plan: Impression Present on admission intractable nausea vomiting diarrhea with clinical dehydration unclear etiology Present on admission severe electrolyte imbalance hypokalemic suspect due to intractable nausea vomiting diarrhea History of urinary retention with chronic indwelling Akins catheter changed monthly echocardiogram May 2016 EF 50-55% History of a left lung mass with needle biopsy confirmed cancer status post radiation treatment completed August 2015 History of nicotine dependency quit in 2005 smoke one pack a day greater than 40 year history Acute on chronic hypoxic respiratory failure Present on admission acute kidney injury suspect due to volume depletion Chronic kidney disease stage III likely due to nephrosclerosis 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 diff stool culture ovarian parasites DVT and GI prophylaxis Resume respiratory treatments as ordered Per surgical service patient will be scheduled for an upper and lower endoscopic tomorrow patient has agreed to the planned procedure The above dictated assessment and findings were discussed with Dr. Junior. Impression and the plan of care have been dictated as directed. Paula Chavarria nurse practitioner acting as a scribe for Dr. Junior
[2016-09-09] MEDS: SODIUM CHLORIDE 0.9% 1,000 ML IV SCH (14:19)
[2016-09-10] MEDS: SODIUM CHLORIDE 0.9% 1,000 ML IV SCH (06:07)
[2016-09-10] MEDS: ALBUTEROL NEBULIZED 2.5 MG/3 ML INHALATION SCH ×4 (07:47→20:22)
[2016-09-10] MEDS: BUDESONIDE 0.5 MG/2 ML NEBU INHALATION SCH ×2 (07:47→20:22)
[2016-09-10 08:14] LABS: Basophils % (A) 0 %; CH 32.2; CHCM 31.2; Eosinophils # (A) 0.5 k/uL (0-0.7); Eosinophils % (A) 12 %; HCT 31.5 % (39.0-53.0); Hypochromasia Moderate; Luc # (Auto) 0.09; Luc % (Auto) 2; Lymphocytes % (A) 23 %; MCH 33.1 pg (25.0-35.0); MCHC 31.9 g/dL (31.0-37.0); MCV 103.9 fL (80.0-100.0); Macrocytosis Slight; Mean Platelet Volume 8.5; Monocytes # (A) 0.3 k/uL (0-1.0); Monocytes % (A) 7 %; Neutrophils # (A) 2.2 k/uL (1.3-7.7); Neutrophils % (A) 55 %; RBC 3.03 m/uL (4.30-5.90); RDW 14.3 % (11.5-15.5); WBC 4.1 k/uL (3.8-10.6); WBC (Perox) 4.53
[2016-09-10] MEDS: ATENOLOL 25 MG TAB PO SCH (08:41)
[2016-09-10] MEDS: ASPIRIN 325 MG TAB PO SCH ×2 (08:41→08:44)
[2016-09-10] MEDS: TAMSULOSIN 0.4 MG CAP.ER.24H PO SCH (08:41)
[2016-09-10] MEDS: PANTOPRAZOLE 40 MG/10 ML VIAL IV SCH (08:42)
[2016-09-10 08:43] LABS: Calcium 8.4 mg/dL (8.4-10.2); Magnesium 1.5 mg/dL (1.6-2.3); Total Bilirubin 0.6 mg/dL (0.2-1.3); Total Protein 4.4 g/dL (6.3-8.2)
[2016-09-10] MEDS ORDERED: SODIUM FERRIC GLUCONAT-SUCROSE 125 MG in SODIUM CHLORIDE 0.9% 100 ML IVPB ONE (09:35)
--- NOTE | 2016-09-10 10:43 | P.PN ---
Subjective Patient is seen in follow-up for acute kidney injury. Patient presented with nausea vomiting and diarrhea going on for the past 1 week. He was also somewhat hypotensive on admission. He continues to have diarrhea. He's been noticing black stools as well. Appetite remains poor. His creatinine was 3.2 at the time of admission and is improved to 1.64 today. Denies chest pain or shortness of breath. Vital signs are stable. General: The patient appeared well nourished and normally developed. HEENT: Head exam is unremarkable. Neck is without jugular venous distension. LUNGS: Lungs are clear to auscultation and percussion. Breath sounds decreased. HEART: Rate and Rhythm are regular. First and second heart sounds normal. No murmurs, rubs or gallops. ABDOMEN: Abdominal exam reveals normal bowel sounds. Non-tender and non- distended. No evidence of peritonitis. EXTREMITITES: No clubbing, cyanosis, or edema. Objective - Vital Signs Vital signs: Vital Signs Temp 98.1 F 09/10/16 08:00 Pulse 76 09/10/16 08:02 Resp 18 09/10/16 08:00 BP 139/63 09/10/16 08:00 Pulse Ox 100 09/10/16 08:00 Intake & Output 09/09/16 09/10/16 09/10/16 18:59 06:59 18:59 Intake Total 725 300 Output Total 50 2 Balance 675 298 Weight 49.5 kg Intake: IV 525 300 Sodium Chloride 0.9% 1, 525 300 000 ml @ 75 mls/hr IV . [id number] KEL Rx#:[id number] Intake, IV Titration 200 Amount Potassium Chloride 20 meq 200 Lidocaine 2% Inj 20 mg In Sodium Chloride 0.9% 100 ml @ 55.5 mls/hr IVPB Q2HR KEL Rx#:[id number] Output: Urine 50 Stool 2 Other: Voiding Method Indwelling Catheter # Voids 2 - Labs CBC & Chem 7: 09/10/16 08:02 09/10/16 08:02 Labs: Abnormal Lab Results - Last 24 Hours (Table) 09/09/16 09/10/16 09/10/16 Range/Units 05:50 08:02 08:02 RBC 3.03 L (4.30-5.90) m/uL Hgb 10.0 L (13.0-17.5) gm/dL Hct 31.5 L (39.0-53.0) % MCV 103.9 H (80.0-100.0) fL Sodium 149 H (137-145) mmol/L Chloride 119 H (98-107) mmol/L Carbon Dioxide 21 L (22-30) mmol/L Creatinine 1.64 H (0.66-1.25) mg/dL Glucose 73 L (74-99) mg/dL Magnesium 1.5 L (1.6-2.3) mg/dL Iron 34 L (49-181) ug/dL TIBC 162 L (261-462) ug/dL Total Protein 4.4 L (6.3-8.2) g/dL Albumin 2.2 L (3.5-5.0) g/dL Microbiology - Last 24 Hours (Table) 09/09/16 09:16 Stool for WBCs - Final Stool 09/09/16 09:16 Stool Culture - Preliminary Stool 09/09/16 06:30 Urine Culture - Preliminary Urine,Catheterized Assessment and Plan Plan: Assessment: #1. Nonoliguric acute kidney injury mostly prerenal in nature secondary to severe intravascular volume depletion secondary to vomiting and diarrhea as well as hypotension. Creatinine 3.29 on admission. Improved to 1.64 today. Baseline creatinine is near 1. #2. Hypokalemia secondary to GI as well as renal losses. Magnesium level I.8. Improved. #3. History of urinary retention with a chronic indwelling Akins catheter in place. #4. Intractable nausea vomiting and diarrhea. Likely viral syndrome. Improved. #5. Anemia. Hemoglobin stable at 10.0. Mild iron deficiency present. Stool for occult blood positive. #6. 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 Renal ultrasound reveals small sized kidneys with cortical thinning suggestive of underlying chronic kidney disease. #7. Hypovolemic hypernatremia secondary to lack of oral water intake. #8. Hypomagnesemia. Plan: I will change the IV fluids to half-normal saline to be run at 100 mL an hour. Avoid nephrotoxic agents and hypotensive episodes. Repeat electrolytes in the morning. Monitor hemoglobin closely. Ferrlecit 125 mg IV once today. Replace magnesium. 2 g today. Scheduled for endoscopy today.
[2016-09-10] MEDS: MAGNESIUM SULFATE-D5W PMX 1 GM in DEXTROSE/WATER 1 100ML.BAG IVPB SCH ×2 (11:03→12:52)
[2016-09-10] MEDS: SODIUM CHLORIDE 0.45% 1,000 ML IV SCH (12:31)
--- NOTE | 2016-09-10 13:25 | P.PN ---
Subjective 80-year-old being seen on rounds scheduled today for EGD and colonoscopy per Dr. Talbot service as part of a workup for melena Hemoccult-positive stools with a hemoglobin 9.6 was 13 on admission did note the creatinine is significantly improved back to baseline is 1.6 this morning the magnesium level is low of 1.5 in which replacement is being given. Currently patient is denying chest pain dizziness lightheadedness shortness of breath. Objective - Vital Signs Vital signs: Vital Signs Temp 98.1 F 09/10/16 08:00 Pulse 80 09/10/16 11:39 Resp 18 09/10/16 08:00 BP 139/63 09/10/16 08:00 Pulse Ox 100 09/10/16 08:00 Intake & Output 09/09/16 09/10/16 09/10/16 18:59 06:59 18:59 Intake Total 725 300 Output Total 50 2 500 Balance 675 298 -500 Weight 49.5 kg Intake: IV 525 300 Sodium Chloride 0.9% 1, 525 300 000 ml @ 75 mls/hr IV . [id number] [facility] Rx#:[id number] Intake, IV Titration 200 Amount Potassium Chloride 20 meq 200 Lidocaine 2% Inj 20 mg In Sodium Chloride 0.9% 100 ml @ 55.5 mls/hr IVPB Q2HR [facility] Rx#:[id number] Output: Urine 50 500 Stool 2 Other: Voiding Method Indwelling Catheter Indwelling Catheter # Voids 2 - Exam GENERAL APPEARANCE: 80-year-old male patient is alert, oriented, in no acute distress. Sitting in bed states the nausea vomiting has resolved no abdominal pain reports continues to have black colored stool nothing by mouth for planned procedure VITAL SIGNS: Reviewed HEENT: Head is normocephalic and atraumatic. Pupils are equal and reactive. The nares are patent. Oropharynx is clear without lesions. NECK: Supple without lymphadenopathy. Traches midline. HEART: S1, S2. Regular rate and rhythm. Monitor sinus with PACs and PVCs LUNGS: No crackles or wheezes are heard. Sats are 97% on 2 L ABDOMEN: Soft, nontender, nondistended with good bowel sounds. No peritoneal signs. No palpable organomegaly or masses. EXTREMITIES: Normal skin color and turgor. No cyanosis, rash, ulceration, clubbing or edema. Radial pedal pulses are 2/4 bilaterally. NEUROLOGICAL: No focal deficits. Strength and sensation are grossly intact. - Labs CBC & Chem 7: 09/10/16 08:02 09/10/16 08:02 Labs: Abnormal Lab Results - Last 24 Hours (Table) 09/10/16 09/10/16 Range/Units 08:02 08:02 RBC 3.03 L (4.30-5.90) m/uL Hgb 10.0 L (13.0-17.5) gm/dL Hct 31.5 L (39.0-53.0) % MCV 103.9 H (80.0-100.0) fL Sodium 149 H (137-145) mmol/L Chloride 119 H (98-107) mmol/L Carbon Dioxide 21 L (22-30) mmol/L Creatinine 1.64 H (0.66-1.25) mg/dL Glucose 73 L (74-99) mg/dL Magnesium 1.5 L (1.6-2.3) mg/dL Total Protein 4.4 L (6.3-8.2) g/dL Albumin 2.2 L (3.5-5.0) g/dL Microbiology - Last 24 Hours (Table) 09/09/16 09:16 Stool for WBCs - Final Stool 09/09/16 09:16 Stool Culture - Preliminary Stool 09/09/16 06:30 Urine Culture - Preliminary Urine,Catheterized Assessment and Plan Plan: Impression Present on admission intractable nausea vomiting diarrhea with clinical dehydration unclear etiology Present on admission severe electrolyte imbalance hypokalemic suspect due to intractable nausea vomiting diarrhea History of urinary retention with chronic indwelling Akins catheter changed monthly echocardiogram May 2016 EF 50-55% preserved LV function no pulmonary hypertension History of a left lung mass with needle biopsy confirmed cancer status post radiation treatment completed August 2015 History of nicotine dependency quit in 2005 smoke one pack a day greater than 40 year history Acute on chronic hypoxic respiratory failure Present on admission acute kidney injury suspect due to volume depletion Chronic kidney disease stage III likely due to nephrosclerosis 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 diff stool culture ova parasites DVT and GI prophylaxis Resume respiratory treatments as ordered Per surgical service patient will be scheduled for an upper and lower endoscopic The above dictated assessment and findings were discussed with Dr. Junior. Impression and the plan of care have been dictated as directed. Paula Chavarria nurse practitioner acting as a scribe for Dr. Junior
[2016-09-10] MEDS ORDERED: IV FLUID CONTINUATION 1,000 ML IV ONE (14:43)
[2016-09-10] MEDS ORDERED: PHENYLEPHRINE-0.9% NACL SYG 1 MG/10 ML SYRINGE ONE (14:48)
[2016-09-10] MEDS ORDERED: PROPOFOL 10 MG/ML 20 ML VIAL IV ONE (14:48)
--- NOTE | 2016-09-10 15:23 | P.PCN ---
Date of Procedure: 09/10/16 Procedure(s) Performed: PREOPERATIVE DIAGNOSIS: GI bleed POSTOPERATIVE DIAGNOSIS: Gastritis, distal esophagitis, ascending colon polyp 2 , hemorrhoids PROCEDURE: 1. EGD with biopsy 2. Colonoscopy with snare polypectomy ANESTHESIA: MAC SURGEON: Fahad Talbot M.D. SPECIMENS: Antrum, distal esophagus, ascending colon polyp ENDOSCOPIC PROCEDURE: The patient was on the endoscopy table in the left decubitus position. The Olympus gastroscope was inserted into the oropharynx and passed under direct visualization to the region of the third portion of the duodenum. From that point the scope was slowly withdrawn inspecting all surfaces carefully. There were no neoplastic inflammatory or polypoid lesions throughout the duodenum. The pylorus was widely patent. The stomach was carefully inspected. There was mild gastritis present. A biopsy of the antrum took place to rule out H. pylori. Retroflexion revealed a normal hiatus. The esophagus was then carefully examined. There was mild distal esophagitis present with some whitish plaques identified. Biopsies of the distal esophagus took place to rule out fungal infection. The patient was kept on the endoscopy table in the left decubitus position. The Olympus colonoscope was inserted into the anus and passed under direct visualization to the base of the cecum. The appendiceal orifice was visualized. From that point the scope was slowly withdrawn inspecting all surfaces carefully. There were no neoplastic inflammatory or polypoid lesions throughout the cecum. In the ascending colon there were 2 flat polyps that were both removed in a piecemeal fashion using the snare technique. Digital fairly small measuring about 1-1.5 cm in size. The remainder of the ascending, transverse, descending, sigmoid, and rectum appeared normal. There was internal and external hemorrhoids noted without any evidence of recent or active bleeding. There was no visible diverticulosis. The patient was taken to the recovery room in stable condition per anesthesia guidelines. RECOMMENDATIONS: Await biopsies results. Advise follow-up colonoscopy in one year because of polyps in the ascending colon. Resume diet.
--- NOTE | 2016-09-10 19:42 | PN ---
DATE OF SERVICE: 09/09/2016 CHIEF COMPLAINT: Acute renal failure, dehydration, COPD and CA of the lung. HISTORY OF PRESENT ILLNESS: This gentleman is still not doing well. He is still nauseated, but he is not having any diarrhea. Hemoglobin is down and his stool positive for blood, but he also has a UTI, but he has a Akins in place. PHYSICAL EXAMINATION: Breath sounds are poor. Color is poor. His hydration is still inadequate. Cardiac is normal. The abdomen is soft and nontender. IMPRESSION: 1. Carcinoma of the lung. 2. Nausea. 3. Diarrhea. 4. Anemia. 5. Rule out gastrointestinal bleed. PLAN: 1. Continue with IV fluids. 2. GI consult for possible endoscopy.
--- NOTE | 2016-09-10 20:02 | PN ---
DATE OF SERVICE: 09/10/2016 CHIEF COMPLAINT: Abdominal pain, anemia and possible GI blood loss. HISTORY OF PRESENT ILLNESS: This gentleman is going down for endoscopies right now. He still feels very weak. PHYSICAL EXAMINATION: He remains pale. Chest is clear. Breath sounds are poor. The abdomen is soft and nontender. IMPRESSION: 1. Anemia. 2. Gastrointestinal blood loss. 3. Chronic obstructive pulmonary disease. 4. Carcinoma of the lung. 5. Dehydration and prerenal azotemia. PLAN: Await results of endoscopy.
[2016-09-11] MEDS: SODIUM CHLORIDE 0.45% 1,000 ML IV SCH ×2 (05:18→17:42)
[2016-09-11] MEDS: BUDESONIDE 0.5 MG/2 ML NEBU INHALATION SCH ×2 (07:00→19:55)
[2016-09-11] MEDS: ALBUTEROL NEBULIZED 2.5 MG/3 ML INHALATION SCH ×4 (07:00→19:55)
[2016-09-11] MEDS: ASPIRIN 325 MG TAB PO SCH (07:26)
[2016-09-11] MEDS: TAMSULOSIN 0.4 MG CAP.ER.24H PO SCH (07:26)
[2016-09-11] MEDS: PANTOPRAZOLE 40 MG/10 ML VIAL IV SCH (07:27)
[2016-09-11] MEDS: ATENOLOL 25 MG TAB PO SCH (07:27)
[2016-09-11 08:19] LABS: Basophils % (A) 1 %; CH 32.4; CHCM 31.2; Eosinophils # (A) 0.6 k/uL (0-0.7); Eosinophils % (A) 13 %; HCT 32.6 % (39.0-53.0); HDW 3.03; HGB 10.2 gm/dL (13.0-17.5); Hypochromasia Moderate; Luc # (Auto) 0.11; Luc % (Auto) 3; Lymphocytes # (A) 1.1 k/uL (1.0-4.8); Lymphocytes % (A) 23 %; MCH 32.5 pg (25.0-35.0); MCHC 31.2 g/dL (31.0-37.0); MCV 104.2 fL (80.0-100.0); Macrocytosis Slight; Mean Platelet Volume 7.6; Monocytes # (A) 0.2 k/uL (0-1.0); Monocytes % (A) 5 %; Neutrophils # (A) 2.6 k/uL (1.3-7.7); Neutrophils % (A) 56 %; RBC 3.13 m/uL (4.30-5.90); RDW 14.4 % (11.5-15.5); WBC 4.6 k/uL (3.8-10.6); WBC (Perox) 5.05
[2016-09-11 08:30] LABS: ALT 28 U/L (21-72); AST 20 U/L (17-59); Alkaline Phosphatase 61 U/L (38-126); Anion Gap 10 mmol/L; Blood Urea Nitrogen 8 mg/dL (9-20); Carbon Dioxide 21 mmol/L (22-30); Chloride 112 mmol/L (98-107); Glucose 79 mg/dL (74-99); Non-African American GFR(MDRD) 50 (>60 ml/min/1.73 sqM); Potassium 3.7 mmol/L (3.5-5.1); Sodium 143 mmol/L (137-145); Total Bilirubin 0.6 mg/dL (0.2-1.3); Total Protein 4.5 g/dL (6.3-8.2)
--- NOTE | 2016-09-11 09:08 | P.PN ---
Subjective Patient is seen in follow-up for acute kidney injury. Patient presented with nausea vomiting and diarrhea going on for the past 1 week. He was also somewhat hypotensive on admission. He continues to have diarrhea but overall improving. He's been noticing black stools as well which is also improved. Appetite remains poor. His creatinine was 3.2 at the time of admission and is improved to 1.37 today. Denies chest pain or shortness of breath. Vital signs are stable. General: The patient appeared well nourished and normally developed. HEENT: Head exam is unremarkable. Neck is without jugular venous distension. LUNGS: Lungs are clear to auscultation and percussion. Breath sounds decreased. HEART: Rate and Rhythm are regular. First and second heart sounds normal. No murmurs, rubs or gallops. ABDOMEN: Abdominal exam reveals normal bowel sounds. Non-tender and non- distended. No evidence of peritonitis. EXTREMITITES: No clubbing, cyanosis, or edema. Objective - Vital Signs Vital signs: Vital Signs Temp 98 F 09/11/16 07:00 Pulse 80 09/11/16 07:15 Resp 16 09/11/16 07:00 BP 126/64 09/11/16 07:00 Pulse Ox 98 09/11/16 07:00 Intake & Output 09/10/16 09/11/16 09/11/16 18:59 06:59 18:59 Intake Total 410 450 Output Total 500 601 Balance -90 450 -601 Weight 50 kg Intake: IV 50 450 Sodium Chloride 0.9% 1, 450 000 ml @ 75 mls/hr IV . [id number] [facility] Rx#:[id number] Oral 360 Output: Urine 500 600 Stool 1 Other: Voiding Method Indwelling Catheter Indwelling Catheter # Bowel Movements 3 1 - Labs CBC & Chem 7: 09/11/16 07:42 09/11/16 07:42 Labs: Abnormal Lab Results - Last 24 Hours (Table) 09/11/16 09/11/16 Range/Units 07:42 07:42 RBC 3.13 L (4.30-5.90) m/uL Hgb 10.2 L (13.0-17.5) gm/dL Hct 32.6 L (39.0-53.0) % MCV 104.2 H (80.0-100.0) fL Chloride 112 H (98-107) mmol/L Carbon Dioxide 21 L (22-30) mmol/L BUN 8 L (9-20) mg/dL Creatinine 1.37 H (0.66-1.25) mg/dL Calcium 8.0 L (8.4-10.2) mg/dL Total Protein 4.5 L (6.3-8.2) g/dL Albumin 2.3 L (3.5-5.0) g/dL Microbiology - Last 24 Hours (Table) 09/09/16 06:30 Urine Culture - Preliminary Urine,Catheterized Gram Neg Bacilli Assessment and Plan Plan: Assessment: #1. Nonoliguric acute kidney injury mostly prerenal in nature secondary to severe intravascular volume depletion secondary to vomiting and diarrhea as well as hypotension. Creatinine 3.29 on admission. Improved to 1.37 today. Baseline creatinine is near 1. #2. Hypokalemia secondary to GI as well as renal losses. Magnesium level 1.8. Improved. #3. History of urinary retention with a chronic indwelling Akins catheter in place. #4. Intractable nausea vomiting and diarrhea. Likely viral syndrome. Improved. #5. Anemia. Hemoglobin stable at 10.0. Mild iron deficiency present. Stool for occult blood positive. Status post endoscopy with no active bleeding noted. #6. 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 Renal ultrasound reveals small sized kidneys with cortical thinning suggestive of underlying chronic kidney disease. #7. Hypovolemic hypernatremia secondary to lack of oral water intake. Improved. #8. Hypomagnesemia. Improved post replacement. Plan: Maintain half-normal saline to be run at 100 mL an hour. Avoid nephrotoxic agents and hypotensive episodes. Repeat electrolytes in the morning. Monitor hemoglobin closely. Status post IV iron. Encourage oral intake. Stable to be discharged home from nephrology standpoint.
--- NOTE | 2016-09-11 11:20 | P.PN ---
Subjective 80-year-old being seen on rounds patient states he is not ready to go home today. Patient states he has had 3 watery stools this morning and has no appetite with a nausea sensation no active emesis. Patient is denying any chest pain denying shortness of breath. Patient appears in no acute distress. Patient did undergo an EGD and a colonoscopy done yesterday and [address] Talbot. The finding showed gastritis and distal esophagitis colonoscopy ascending colon polyp 2 with hemorrhoid. There were no acute findings. There was no evidence of any recent or active bleeding. There was no visible diverticulosis. Biopsy of the atrium was taken to rule out H. pylori. With no white count noted hemoglobin this morning 10.2. This been no evidence of any active bleed no hematemesis and no blood noted in the stool patient stated to watery stools were brown in color this morning Objective - Vital Signs Vital signs: Vital Signs Temp 98 F 09/11/16 07:00 Pulse 74 09/11/16 10:59 Resp 16 09/11/16 07:00 BP 126/64 09/11/16 07:00 Pulse Ox 98 09/11/16 07:00 Intake & Output 09/10/16 09/11/16 09/11/16 18:59 06:59 18:59 Intake Total 410 450 Output Total 500 601 Balance -90 450 -601 Weight 50 kg Intake: IV 50 450 Sodium Chloride 0.9% 1, 450 000 ml @ 75 mls/hr IV . [id number] [facility] Rx#:[id number] Oral 360 Output: Urine 500 600 Stool 1 Other: Voiding Method Indwelling Catheter Indwelling Catheter # Bowel Movements 3 1 - Exam Physical exam 80-year-old male sitting up in bed watching television does not appear in acute distress does report feeling nauseated decreased energy with frequent watery stools states is not ready to be discharged no appetite Lungs no wheezing bilateral adequate air movement no cough noted no conversational dyspnea noted sats on 3 L greater than 95% Heart S1-S2 audible monitor sinus with occasional PVC abdomen soft nontender no nausea vomiting sensation of nausea no frequent stooling Extremities no edema noted - Labs CBC & Chem 7: 09/11/16 07:42 09/11/16 07:42 Labs: Abnormal Lab Results - Last 24 Hours (Table) 09/11/16 09/11/16 Range/Units 07:42 07:42 RBC 3.13 L (4.30-5.90) m/uL Hgb 10.2 L (13.0-17.5) gm/dL Hct 32.6 L (39.0-53.0) % MCV 104.2 H (80.0-100.0) fL Chloride 112 H (98-107) mmol/L Carbon Dioxide 21 L (22-30) mmol/L BUN 8 L (9-20) mg/dL Creatinine 1.37 H (0.66-1.25) mg/dL Calcium 8.0 L (8.4-10.2) mg/dL Total Protein 4.5 L (6.3-8.2) g/dL Albumin 2.3 L (3.5-5.0) g/dL Microbiology - Last 24 Hours (Table) 09/09/16 06:30 Urine Culture - Preliminary Urine,Catheterized Gram Neg Bacilli Assessment and Plan Plan: Impression Present on admission intractable nausea vomiting diarrhea with clinical dehydration suspect viral gastroenteritis stool for C. diff negative Present on admission severe electrolyte imbalance hypokalemic suspect due to intractable nausea vomiting diarrhea History of urinary retention with chronic indwelling Akins catheter changed monthly echocardiogram May 2016 EF 50-55% preserved LV function no pulmonary hypertension History of a left lung mass with needle biopsy confirmed cancer status post radiation treatment completed August 2015 History of nicotine dependency quit in 2005 smoke one pack a day greater than 40 year history Acute on chronic hypoxic respiratory failure Present on admission acute kidney injury suspect due to volume depletion Chronic kidney disease stage III likely due to nephrosclerosis 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 completed August 2015 End-stage lung disease secondary to severe COPD Anemia of chronic illness Acute blood loss anemia suspect lower GI source Hypo-magnesium replaced corrected resolved Status post EGD colonoscopy done on September 10 shows gastritis and distal esophagitis, ascending colon polyp 2 no active bleed UTI gram-negative bacilli suspect due to chronic indwelling Akins catheter Plan Magnesium being replaced Resume home meds as appropriate Electrolytes to be replaced and corrected keep in a therapeutic range Repeat labs in the morning Advance diet as tolerated IV fluid at 75 an hour rehydrate Akins catheter changed monthly due to be changed on the Collects stool for C. diff stool culture ova parasites DVT and GI prophylaxis Resume respiratory treatments as ordered Prepped for discharge soon The above dictated assessment and findings were discussed with Dr. Junior. Impression and the plan of care have been dictated as directed. Paula Chavarria nurse practitioner acting as a scribe for Dr. Junior
[2016-09-11] MEDS: CHOLESTYRAMINE (WITH SUGAR) 4 GM PACKET PO SCH ×2 (12:01→20:17)
--- NOTE | 2016-09-11 15:49 | P.PN ---
Subjective Principal diagnosis: GI bleed Patient with no further bleeding. He is having some loose stools. Hemoglobin is stable. Objective - Vital Signs Vital signs: Vital Signs Temp 97.7 F 09/11/16 15:00 Pulse 72 09/11/16 15:45 Resp 16 09/11/16 15:00 BP 83/50 09/11/16 15:00 Pulse Ox 96 09/11/16 15:00 Intake & Output 09/10/16 09/11/16 09/11/16 18:59 06:59 18:59 Intake Total 410 450 Output Total 500 901 Balance -90 450 -901 Weight 50 kg 50 kg Intake: IV 50 450 Sodium Chloride 0.9% 1, 450 000 ml @ 75 mls/hr IV . [id number] [facility] Rx#:[id number] Oral 360 Output: Urine 500 900 Stool 1 Other: Voiding Method Indwelling Catheter Indwelling Catheter # Bowel Movements 3 1 - Exam Abdomen: Soft, nontender, nondistended - Labs CBC & Chem 7: 09/11/16 07:42 09/11/16 07:42 Labs: Abnormal Lab Results - Last 24 Hours (Table) 09/11/16 09/11/16 Range/Units 07:42 07:42 RBC 3.13 L (4.30-5.90) m/uL Hgb 10.2 L (13.0-17.5) gm/dL Hct 32.6 L (39.0-53.0) % MCV 104.2 H (80.0-100.0) fL Chloride 112 H (98-107) mmol/L Carbon Dioxide 21 L (22-30) mmol/L BUN 8 L (9-20) mg/dL Creatinine 1.37 H (0.66-1.25) mg/dL Calcium 8.0 L (8.4-10.2) mg/dL Total Protein 4.5 L (6.3-8.2) g/dL Albumin 2.3 L (3.5-5.0) g/dL Microbiology - Last 24 Hours (Table) 09/09/16 09:16 Stool Culture - Preliminary Stool 09/09/16 06:30 Urine Culture - Preliminary Urine,Catheterized Gram Neg Bacilli Assessment and Plan (1) Lower GI hemorrhage Narrative/Plan: Continue diet as tolerated. Stable for discharge. I will contact the patient with the biopsy results. We'll sign off at this point. Please contact if needed. Status: Acute
--- NOTE | 2016-09-11 16:18 | CONS ---
DATE OF CONSULTATION: 09/11/2015 REASON FOR CONSULTATION: Gram negative urinary tract infection. HISTORY OF PRESENT ILLNESS: The patient is an 80 -year-old male who has been brought into the ER on 09/07/2016 with the chief complaint of nausea, vomiting and diarrhea that has been going on for a few days to a week prior to presentation to the hospital. The patient denied any cough, antibiotics prior to coming to the hospital. Patient subsequently has been admitted to the hospital. The patient does have urinary retention and did require Akins catheter placement about a month ago. However, the patient says it was supposed to be changed last Wednesday. However, has not been changed as he has been in the hospital. The patient did have a UA obtained which is positive. Urine culture showing gram negative bacilli. The patient does have multiple antibiotic allergies hence I was asked to see the patient for further recommendation regarding antibiotic therapy. Patient did have an EGD, colonoscopy done yesterday which did show evidence of gastritis and a colonic polyp which has been biopsied but no significant inflammation has been noted. He did have stool for C. difficile which came back to be negative. REVIEW OF SYSTEMS: CONSTITUTIONAL: Positive for weakness. No high-grade fever. EYES: No complaint. ENT: No complaint. RESPIRATORY: As per HPI. CARDIOVASCULAR: No complaint. GENITOURINARY: As per HPI. GASTROINTESTINAL: As per HPI. MUSCULOSKELETAL: No complaint. INTEGUMENTARY: No complaint. PSYCHOLOGIC: No complaint. ENDOCRINE: No complaint. NEUROLOGIC: No complaint. Past medical history is significant for hypertension, hyperlipidemia, pneumonia, Benign prostatic hypertrophy with urinary obstruction, DVT, COPD, heart failure. PAST MEDICAL HISTORY: Appendectomy, tonsillectomy, abdominal aortic aneurysm repair, bilateral rotator cuff repair, biopsy shows positive for malignancy. SOCIAL HISTORY: Positive for smoking; quit back in 2005. No drinking or drug use. FAMILY HISTORY: Father had history of coronary artery disease. Mother history of anemia. ALLERGY TO CEFTRIAXONE WITH AN ITCHING, IODINE CONTRAST DYE, LEVOFLOXACIN. Home medications include patient is currently on: 1. Tylenol. 2. Ventolin. 3. Aspirin. 4. Tenormin. 5. Pulmicort. 6. Questran. 7. Lomotil. 8. Robitussin-AC. 9. Narcan. 10. Zofran. 11. Protonix. 12. Flomax. 13. Desyrel. On examination, blood pressure 83/50, pulse of 84, temperature 97.7. He is 93% on 2 L nasal cannula. General description is an elderly male, lying in bed in no distress. No tachypnea or accessory muscle of respiration use. HEENT examination shows slight pallor. There is no scleral icterus. Oral mucous membrane dry. NECK: Trachea central, no thyromegaly. LUNGS: Unlabored breathing. Clear to auscultation anteriorly. HEART: S1, S2 with regular rate and rhythm. ABDOMEN: Soft, no tenderness. EXTREMITIES: No edema of feet. Examination of the skin no rash or mass palpable. NEUROLOGICAL: The patient is awake, alert, oriented x3. Mood and affect normal. LABS: Hemoglobin is 10.1, 4.6 with a BUN of 8, creatinine 1.37. Urine has been positive initially showing gram negative bacilli. Stool for C. difficile is negative. DIAGNOSTIC IMPRESSION AND IMPRESSION AND PLAN: Patient with positive urine culture with gram-negative bacilli with a question of possible Akins colonization versus a true infection in a patient who does have MULTIPLE ANTIBIOTIC ALLERGIES. PLAN: 1. We will change his Akins catheter. 2. Urine culture from the new Akins. 3. We will empirically start the patient on Azactam 1gm q.12. 4. If the urine culture from after change of Akins catheter are negative, we will recommend discontinuation off antibiotic therapy. 5. Will follow up on clinical condition and cultures to further adjust the medication if needed. Thank you for this consultation. We will follow this patient along with you. CONNOR
[2016-09-11] MEDS: AZTREONAM 2 GM in SODIUM CHLORIDE 0.9% 100 ML IVPB SCH (17:52)
[2016-09-11 17:54] LABS: Appearance,Urine Cloudy (Clear); Bacteria,Urine Occasional /hpf; Bilirubin,Urine Negative (Negative); Glucose,Urine (UA) Negative (Negative); Ketones,Urine 1+ (Negative); Leukocyte Esterase,Urine Large (Negative); Mucus,Urine Rare /hpf; Nitrite,Urine Positive (Negative); Particle Count 10475; Protein,Urine 2+ (Negative); RBC,Urine 17 /hpf (0-5); Specific Gravity,Urine 1.011 (1.001-1.035); UA Billing (MACRO vs. MICRO) MICRO; Urobilinogen,Urine <2.0 mg/dL (<2.0); WBC,Urine >182 /hpf (0-5)
[2016-09-12] MEDS: SODIUM CHLORIDE 0.45% 1,000 ML IV SCH ×2 (05:12→12:30)
[2016-09-12] MEDS: AZTREONAM 2 GM in SODIUM CHLORIDE 0.9% 100 ML IVPB SCH ×2 (05:15→18:46)
[2016-09-12] MEDS: BUDESONIDE 0.5 MG/2 ML NEBU INHALATION SCH ×2 (07:05→20:59)
[2016-09-12] MEDS: ALBUTEROL NEBULIZED 2.5 MG/3 ML INHALATION SCH ×4 (07:05→21:01)
[2016-09-12 07:51] LABS: Anion Gap 7 mmol/L; Blood Urea Nitrogen 8 mg/dL (9-20); Carbon Dioxide 22 mmol/L (22-30); Chloride 111 mmol/L (98-107); Glucose 84 mg/dL (74-99); Non-African American GFR(MDRD) 53 (>60 ml/min/1.73 sqM); Potassium 3.6 mmol/L (3.5-5.1); Sodium 140 mmol/L (137-145)
[2016-09-12] MEDS: CHOLESTYRAMINE (WITH SUGAR) 4 GM PACKET PO SCH ×2 (08:23→20:39)
[2016-09-12] MEDS: PANTOPRAZOLE 40 MG TABLET PO SCH (08:23)
[2016-09-12] MEDS: ASPIRIN 325 MG TAB PO SCH (08:23)
[2016-09-12] MEDS: ATENOLOL 25 MG TAB PO SCH (08:23)
[2016-09-12] MEDS: TAMSULOSIN 0.4 MG CAP.ER.24H PO SCH (08:23)
--- NOTE | 2016-09-12 15:30 | PN ---
He was seen on 09/12/2016. He continues to have some diarrhea. On physical examination, respiratory rate is 16, pulse rate of 100, temperature 97.7, blood pressure 96/54, O2 sat on 3 L by nasal cannula 96%. HEENT is unremarkable. Chest reveals decreased breath sounds. No wheeze. Cardiovascular system reveals an S1 and S2. Abdomen is soft. There is no edema. Urine culture from suprapubic catheter showing Providencia rettgeri. Repeat cultures pending. IMPRESSION AT THIS TIME: 1. Acute gastroenteritis from which the patient is doing better. 2. Gastrointestinal bleed. 3. Gram-negative urinary tract infection. Continue Azactam. Recheck cultures. Increase his activity level. Advance his diet. Depending on how he does, we shall make further changes to his care.
[2016-09-13] MEDS: AZTREONAM 2 GM in SODIUM CHLORIDE 0.9% 100 ML IVPB SCH ×2 (05:45→18:21)
[2016-09-13 07:44] LABS: Anion Gap 6 mmol/L; Blood Urea Nitrogen 10 mg/dL (9-20); Calcium 8.2 mg/dL (8.4-10.2); Carbon Dioxide 21 mmol/L (22-30); Chloride 112 mmol/L (98-107); Glucose 74 mg/dL (74-99); Non-African American GFR(MDRD) 58 (>60 ml/min/1.73 sqM); Potassium 3.2 mmol/L (3.5-5.1); Sodium 139 mmol/L (137-145)
[2016-09-13] MEDS: BUDESONIDE 0.5 MG/2 ML NEBU INHALATION SCH ×2 (08:27→19:15)
[2016-09-13] MEDS: ALBUTEROL NEBULIZED 2.5 MG/3 ML INHALATION SCH ×4 (08:27→19:17)
[2016-09-13] MEDS: ASPIRIN 325 MG TAB PO SCH (08:44)
[2016-09-13] MEDS: TAMSULOSIN 0.4 MG CAP.ER.24H PO SCH (08:44)
[2016-09-13] MEDS: CHOLESTYRAMINE (WITH SUGAR) 4 GM PACKET PO SCH (08:44)
[2016-09-13] MEDS: PANTOPRAZOLE 40 MG TABLET PO SCH (08:44)
[2016-09-13] MEDS: ATENOLOL 25 MG TAB PO SCH (08:44)
[2016-09-13] MEDS: SODIUM CHLORIDE 0.45% 1,000 ML IV SCH (08:46)
[2016-09-13] MEDS: POTASSIUM CHLORIDE 10 MEQ, LIDOCAINE 2% INJ 10 MG in SODIUM CHLORIDE 0.9% 100 ML IV SCH ×2 (10:07→11:14)
--- NOTE | 2016-09-13 10:50 | P.PN ---
Subjective Patient is seen in follow-up for acute kidney injury. Patient presented with nausea vomiting and diarrhea going on for the past 1 week. He was also somewhat hypotensive on admission. He continues to have diarrhea. He's been noticing black stools as well which is improved. Appetite remains poor. His creatinine was 3.2 at the time of admission and is improved to 1.2 today. Denies chest pain or shortness of breath. Vital signs are stable. General: The patient appeared well nourished and normally developed. HEENT: Head exam is unremarkable. Neck is without jugular venous distension. LUNGS: Lungs are clear to auscultation and percussion. Breath sounds decreased. HEART: Rate and Rhythm are regular. First and second heart sounds normal. No murmurs, rubs or gallops. ABDOMEN: Abdominal exam reveals normal bowel sounds. Non-tender and non- distended. No evidence of peritonitis. EXTREMITITES: No clubbing, cyanosis, or edema. Objective - Vital Signs Vital signs: Vital Signs Temp 98.2 F 09/13/16 07:00 Pulse 84 09/13/16 08:43 Resp 16 09/13/16 07:00 BP 119/66 09/13/16 07:00 Pulse Ox 100 09/13/16 07:00 Intake & Output 09/12/16 09/13/16 09/13/16 18:59 06:59 18:59 Intake Total 450 Output Total 450 Balance -450 450 Weight 52.5 kg Intake: Intake, IV Titration 450 Amount Aztreonam 2 gm In Sodium 100 Chloride 0.9% 100 ml @ 100 mls/hr IVPB 0600,1800 [facility] Rx#:[id number] Sodium Chloride 0.45% 1, 350 000 ml @ 50 mls/hr IV . Q20H [facility] Rx#:[id number] Output: Urine 450 Other: Voiding Method Indwelling Catheter Indwelling Catheter Indwelling Catheter # Bowel Movements 2 - Labs CBC & Chem 7: 09/11/16 07:42 09/13/16 07:00 Labs: Abnormal Lab Results - Last 24 Hours (Table) 09/13/16 Range/Units 07:00 Potassium 3.2 L (3.5-5.1) mmol/L Chloride 112 H (98-107) mmol/L Carbon Dioxide 21 L (22-30) mmol/L Calcium 8.2 L (8.4-10.2) mg/dL Microbiology - Last 24 Hours (Table) 09/11/16 17:43 Urine Culture - Preliminary Urine,Catheterized Gram Neg Bacilli 09/09/16 06:30 Urine Culture - Final Urine,Catheterized Providencia rettgeri 09/09/16 09:16 Stool Culture - Final Stool Assessment and Plan Plan: Assessment: #1. Nonoliguric acute kidney injury mostly prerenal in nature secondary to severe intravascular volume depletion secondary to vomiting and diarrhea as well as hypotension. Creatinine 3.29 on admission. Improved to 1.2 today. Baseline creatinine is near 1. #2. Hypokalemia secondary to GI losses. #3. History of urinary retention with a chronic indwelling Akins catheter in place. #4. Intractable nausea vomiting and diarrhea. Likely viral syndrome. Improved. #5. Anemia. Hemoglobin stable at 10.0. Mild iron deficiency present. Stool for occult blood positive. Status post endoscopy with no active bleeding noted. #6. 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 Renal ultrasound reveals small sized kidneys with cortical thinning suggestive of underlying chronic kidney disease. #7. Hypovolemic hypernatremia secondary to lack of oral water intake. Improved. #8. Hypomagnesemia. Improved post replacement. #9. UTI. Urine culture positive for gram-negative bacilli. Plan: I will change IV fluids to normal saline to run at 50 mL an hour. Replace potassium. 40 mEq today. Avoid nephrotoxic agents and hypotensive episodes. Repeat electrolytes in the morning. Monitor hemoglobin closely. Status post IV iron. Encourage oral intake. Stable to be discharged home from nephrology standpoint.
[2016-09-13] MEDS: SODIUM CHLORIDE 0.9% 1,000 ML IV SCH (11:14)
[2016-09-13] MEDS: POTASSIUM CHLORIDE 10 MEQ, LIDOCAINE 2% INJ 10 MG in SODIUM CHLORIDE 0.9% 100 ML IVPB SCH ×2 (12:21→13:26)
[2016-09-13] MEDS: ALBUTEROL NEBULIZED 2.5 MG/3 ML INHALATION PRN (19:17)
[2016-09-14] MEDS: AZTREONAM 2 GM in SODIUM CHLORIDE 0.9% 100 ML IVPB SCH ×2 (06:09→17:56)
[2016-09-14] MEDS: PANTOPRAZOLE 40 MG TABLET PO SCH (08:13)
[2016-09-14] MEDS: SODIUM CHLORIDE 0.9% 1,000 ML IV SCH (08:13)
[2016-09-14] MEDS: ASPIRIN 325 MG TAB PO SCH (08:13)
[2016-09-14] MEDS: ATENOLOL 25 MG TAB PO SCH (08:13)
[2016-09-14] MEDS: TAMSULOSIN 0.4 MG CAP.ER.24H PO SCH (08:13)
[2016-09-14] MEDS: BUDESONIDE 0.5 MG/2 ML NEBU INHALATION SCH ×2 (08:20→19:54)
[2016-09-14] MEDS: ALBUTEROL NEBULIZED 2.5 MG/3 ML INHALATION SCH ×4 (08:20→19:54)
[2016-09-14 08:24] LABS: Anion Gap 7 mmol/L; Blood Urea Nitrogen 10 mg/dL (9-20); Calcium 8.3 mg/dL (8.4-10.2); Carbon Dioxide 20 mmol/L (22-30); Chloride 115 mmol/L (98-107); Glucose 73 mg/dL (74-99); Magnesium 1.8 mg/dL (1.6-2.3); Non-African American GFR(MDRD) 54 (>60 ml/min/1.73 sqM); Potassium 4.1 mmol/L (3.5-5.1); Sodium 142 mmol/L (137-145)
--- NOTE | 2016-09-14 09:25 | PN ---
DATE OF SERVICE: 09/13/2016 He continues to have some diarrhea and believes that his Questran is worsening his symptomatology. On physical examination, his respiratory rate is 16, pulse rate of 75, temperature 98.2, blood pressure 105/59, O2 sat on 3 L by nasal cannula is 99%. HEENT is unremarkable. Chest is clear. Cardiovascular S1 and S2. Abdomen is soft. There is no edema. Labs reveal sodium 139, potassium 3.2, chloride 112, bicarb 21, BUN 10, creatinine of 1.2. IMPRESSION: 1. Acute gastrointestinal bleed. 2. Dehydration. 3. Acute gastroenteritis. At this point in time, discontinue the Questran, increase his activity level. Follow recommendations of ID, Nephrology and Surgery. Depending on how he does, we shall make further changes to his care.
--- NOTE | 2016-09-14 10:36 | P.PN ---
Subjective Patient is seen in follow-up for acute kidney injury. Patient presented with nausea vomiting and diarrhea going on for the past 1 week. He was also somewhat hypotensive on admission. He continues to have diarrhea but improving. He's been noticing black stools as well which is improved. Appetite remains poor. His creatinine was 3.2 at the time of admission and is stable at 1.2 weight today. Denies chest pain or shortness of breath. Vital signs are stable. General: The patient appeared well nourished and normally developed. HEENT: Head exam is unremarkable. Neck is without jugular venous distension. LUNGS: Lungs are clear to auscultation and percussion. Breath sounds decreased. HEART: Rate and Rhythm are regular. First and second heart sounds normal. No murmurs, rubs or gallops. ABDOMEN: Abdominal exam reveals normal bowel sounds. Non-tender and non- distended. No evidence of peritonitis. EXTREMITITES: No clubbing, cyanosis, or edema. Objective - Vital Signs Vital signs: Vital Signs Temp 98 F 09/14/16 07:00 Pulse 86 09/14/16 08:34 Resp 18 09/14/16 07:00 BP 133/69 09/14/16 07:00 Pulse Ox 97 09/14/16 07:00 Intake & Output 09/13/16 09/14/16 09/14/16 18:59 06:59 18:59 Intake Total 790 Output Total 701 450 Balance -701 340 Weight 53.5 kg Intake: Intake, IV Titration 200 Amount Sodium Chloride 0.45% 1, 200 000 ml @ 50 mls/hr IV . Q20H [facility] Rx#:[id number] Oral 590 Output: Urine 700 450 Uretheral (Akins) 700 Stool 1 Other: Voiding Method Indwelling Catheter Indwelling Catheter Indwelling Catheter # Voids 1 # Bowel Movements 3 - Labs CBC & Chem 7: 09/11/16 07:42 09/14/16 07:51 Labs: Abnormal Lab Results - Last 24 Hours (Table) 09/14/16 Range/Units 07:51 Chloride 115 H (98-107) mmol/L Carbon Dioxide 20 L (22-30) mmol/L Creatinine 1.28 H (0.66-1.25) mg/dL Glucose 73 L (74-99) mg/dL Calcium 8.3 L (8.4-10.2) mg/dL Microbiology - Last 24 Hours (Table) 09/11/16 17:43 Urine Culture - Preliminary Urine,Catheterized Providencia rettgeri Gram Neg Bacilli Assessment and Plan Plan: Assessment: #1. Nonoliguric acute kidney injury mostly prerenal in nature secondary to severe intravascular volume depletion secondary to vomiting and diarrhea as well as hypotension. Creatinine 3.29 on admission. Stable at 1.28 today. Baseline creatinine is near 1. #2. Hypokalemia secondary to GI losses. #3. History of urinary retention with a chronic indwelling Akins catheter in place. #4. Intractable nausea vomiting and diarrhea. Likely viral syndrome. Improved. #5. Anemia. Hemoglobin stable at 10.0. Mild iron deficiency present. Stool for occult blood positive. Status post endoscopy with no active bleeding noted. #6. 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 Renal ultrasound reveals small sized kidneys with cortical thinning suggestive of underlying chronic kidney disease. #7. Hypovolemic hypernatremia secondary to lack of oral water intake. Improved. #8. Hypomagnesemia. Improved post replacement. #9. UTI. Urine culture positive for Providencia. #10. Metabolic acidosis secondary acute kidney injury and diarrhea. Plan: Continue normal saline to run at 50 mL an hour. Avoid nephrotoxic agents and hypotensive episodes. Repeat electrolytes in the morning. Monitor hemoglobin closely. Status post IV iron. Encourage oral intake. Start oral sodium bicarbonate supplementation.
[2016-09-14] MEDS: SODIUM BICARBONATE TAB 650 MG TAB PO SCH ×2 (11:08→20:23)
--- NOTE | 2016-09-14 12:23 | P.PN ---
Subjective Sitting up taking a diet currently is stating feels slightly improved less stooling. Patient is denying chest pain shortness of breath. Patient states breathing feels slightly improved currently is on 3 L. Objective - Vital Signs Vital signs: Vital Signs Temp 98 F 09/14/16 07:00 Pulse 74 09/14/16 12:05 Resp 18 09/14/16 07:00 BP 133/69 09/14/16 07:00 Pulse Ox 97 09/14/16 07:00 Intake & Output 09/13/16 09/14/16 09/14/16 18:59 06:59 18:59 Intake Total 790 Output Total 701 450 Balance -701 340 Weight 53.5 kg Intake: Intake, IV Titration 200 Amount Sodium Chloride 0.45% 1, 200 000 ml @ 50 mls/hr IV . Q20H [facility] Rx#:[id number] Oral 590 Output: Urine 700 450 Uretheral (Akins) 700 Stool 1 Other: Voiding Method Indwelling Catheter Indwelling Catheter Indwelling Catheter # Voids 1 # Bowel Movements 3 - Exam Physical exam 80-year-old male sitting up in bed taking a diet. States less loose stools more formed no blood noted in the stool Lungs no wheezing bilateral adequate air movement no cough noted no conversational dyspnea noted sats on 3 L greater than 95% Heart S1-S2 audible monitor sinus with occasional PVC abdomen soft nontender no nausea vomiting sensation of nausea no frequent stooling Extremities no edema noted - Labs CBC & Chem 7: 09/11/16 07:42 09/14/16 07:51 Labs: Abnormal Lab Results - Last 24 Hours (Table) 09/14/16 Range/Units 07:51 Chloride 115 H (98-107) mmol/L Carbon Dioxide 20 L (22-30) mmol/L Creatinine 1.28 H (0.66-1.25) mg/dL Glucose 73 L (74-99) mg/dL Calcium 8.3 L (8.4-10.2) mg/dL Microbiology - Last 24 Hours (Table) 09/11/16 17:43 Urine Culture - Preliminary Urine,Catheterized Providencia rettgeri Gram Neg Bacilli Assessment and Plan Plan: Impression Present on admission intractable nausea vomiting diarrhea with clinical dehydration suspect viral gastroenteritis stool for C. diff negative Present on admission severe electrolyte imbalance hypokalemic suspect due to intractable nausea vomiting diarrhea History of urinary retention with chronic indwelling Akins catheter changed monthly echocardiogram May 2016 EF 50-55% preserved LV function no pulmonary hypertension History of a left lung mass with needle biopsy confirmed cancer status post radiation treatment completed August 2015 History of nicotine dependency quit in 2005 smoke one pack a day greater than 40 year history Acute on chronic hypoxic respiratory failure Present on admission acute kidney injury suspect due to volume depletion Chronic kidney disease stage III likely due to nephrosclerosis 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 Berger with the patient is being discharged will go on Bactrim twice a day for 3 day course Magnesium being replaced Resume home meds as appropriate Electrolytes to be replaced and corrected keep in a therapeutic range Repeat labs in the morning Advance diet as tolerated IV fluid at 75 an hour rehydrate Akins catheter changed monthly due to be changed on the Collects stool for C. diff stool culture ova parasites DVT and GI prophylaxis Resume respiratory treatments as ordered Prepped for discharge soon The above dictated assessment and findings were discussed with Dr. Chava hancock covering for Dr. Junior. Impression and the plan of care have been dictated as directed. Paula Chavarria nurse practitioner acting as a scribe fo Dr. Chava hancock covering for r Dr. Junior
--- NOTE | 2016-09-14 13:17 | PN ---
DATE OF SERVICE: 09/13/2016 Reason for follow-up: Catheter associated urinary tract infection. INTERVAL HISTORY: The patient is afebrile. He is feeling slightly better. His diarrhea has slowed down. He denies any abdominal pain. Akins catheter has been changed without any problem. Denies any nausea. No vomiting. On examination, blood pressure is 114/65 with a pulse of 77, temperature 98.4. He is 100% on 3 liters nasal cannula. General description is an elderly male, lying in bed in no distress. RESPIRATORY SYSTEM: Unlabored breathing. Clear to auscultation anteriorly. HEART: S1, S2. Regular rate and rhythm. ABDOMEN: Soft, no tenderness. LABS: Sent. BUN is 10, creatinine 1.20, repeat showing a gram-negative. All other sensitivities pending. DIAGNOSTIC IMPRESSION AND PLAN: Patient with a gram negative catheter associated urinary tract infection, initial culture with Providencia, patient currently responding to the Azactam that will be continued because of his Cephalosporin and Levofloxacin allergy. Awaiting for the repeat culture to finalized to determine discharge antibiotics. Continue supportive care. CONNOR
[2016-09-14 15:59] VITALS: BMI 19.6
--- NOTE | 2016-09-14 21:59 | PN ---
DATE OF SERVICE: 09/14/2016 REASON FOR FOLLOWUP: Gram-negative catheter-associated urinary tract infection. INTERVAL HISTORY: The patient is afebrile, feeling slightly better, breathing comfortably. Diarrhea has slowed down. Patient denies significant chest pain, shortness of breath or cough. No abdominal pain. On examination, blood pressure is 112/59 with a pulse of 77, temperature 97.9. He is 99% on 2 L nasal cannula. General description is an elderly male lying in bed in no distress. RESPIRATORY SYSTEM: Unlabored breathing. Clear to auscultation anteriorly. HEART: S1, S2. Regular rate and rhythm. ABDOMEN: Soft. No tenderness. LABS: BUN of 10. Creatinine is 1.28. Repeat urine after a change of catheters showing Gram-negative. DIAGNOSTIC IMPRESSION AND PLAN: Patient with catheter-associated urinary tract infection. Repeat urine after a change of Akins did show the same pathogen. Currently on Azactam because of his allergies. Plan to finish therapy with p.o. Bactrim DS one twice a day for about 3 to 5 days maximum. Continue supportive care. MTDD
[2016-09-15] MEDS: ALBUTEROL NEBULIZED 2.5 MG/3 ML INHALATION PRN (02:45)
[2016-09-15] MEDS: AZTREONAM 2 GM in SODIUM CHLORIDE 0.9% 100 ML IVPB SCH (05:21)
[2016-09-15] MEDS: SODIUM CHLORIDE 0.9% 1,000 ML IV SCH (07:20)
[2016-09-15] MEDS: BUDESONIDE 0.5 MG/2 ML NEBU INHALATION SCH (07:46)
[2016-09-15] MEDS: ALBUTEROL NEBULIZED 2.5 MG/3 ML INHALATION SCH ×2 (07:46→11:10)
[2016-09-15] MEDS: PANTOPRAZOLE 40 MG TABLET PO SCH (08:23)
[2016-09-15] MEDS: ATENOLOL 25 MG TAB PO SCH (08:23)
[2016-09-15] MEDS: SODIUM BICARBONATE TAB 650 MG TAB PO SCH (08:23)
[2016-09-15] MEDS: TAMSULOSIN 0.4 MG CAP.ER.24H PO SCH (08:23)
[2016-09-15] MEDS: ASPIRIN 325 MG TAB PO SCH (08:23)
[2016-09-15 08:38] VITALS: BP 135/60; RESP 18; TEMP 97.9
[2016-09-15 09:13] LABS: Anion Gap 8 mmol/L; Blood Urea Nitrogen 11 mg/dL (9-20); Calcium 8.1 mg/dL (8.4-10.2); Carbon Dioxide 18 mmol/L (22-30); Chloride 116 mmol/L (98-107); Glucose 95 mg/dL (74-99); Non-African American GFR(MDRD) 59 (>60 ml/min/1.73 sqM); Potassium 4.4 mmol/L (3.5-5.1); Sodium 142 mmol/L (137-145)
--- NOTE | 2016-09-15 10:34 | P.PN ---
Subjective Patient is seen in follow-up for acute kidney injury. Patient presented with nausea vomiting and diarrhea going on for the past 1 week. He was also somewhat hypotensive on admission. He continues to have loose stools. He's been noticing black stools as well which is improved. Appetite is starting to improve. His creatinine was 3.2 at the time of admission and is stable at 1.18 today. Denies chest pain or shortness of breath. Vital signs are stable. General: The patient appeared well nourished and normally developed. HEENT: Head exam is unremarkable. Neck is without jugular venous distension. LUNGS: Lungs are clear to auscultation and percussion. Breath sounds decreased. HEART: Rate and Rhythm are regular. First and second heart sounds normal. No murmurs, rubs or gallops. ABDOMEN: Abdominal exam reveals normal bowel sounds. Non-tender and non- distended. No evidence of peritonitis. EXTREMITITES: No clubbing, cyanosis, or edema. Objective - Vital Signs Vital signs: Vital Signs Temp 97.9 F 09/15/16 07:00 Pulse 84 09/15/16 07:57 Resp 18 09/15/16 07:00 BP 135/60 09/15/16 07:00 Pulse Ox 97 09/15/16 07:00 Intake & Output 09/14/16 09/15/16 09/15/16 18:59 06:59 18:59 Intake Total 990 Output Total 900 Balance 90 Weight 53.5 kg 55.5 kg Intake: IV 400 Sodium Chloride 0.9% 1, 400 000 ml @ 50 mls/hr IV . Q20H [facility] Rx#:[id number] Oral 590 Output: Urine 900 Other: Voiding Method Indwelling Catheter Indwelling Catheter Indwelling Catheter # Bowel Movements 0 1 - Labs CBC & Chem 7: 09/11/16 07:42 09/15/16 08:00 Labs: Abnormal Lab Results - Last 24 Hours (Table) 09/15/16 Range/Units 08:00 Chloride 116 H (98-107) mmol/L Carbon Dioxide 18 L (22-30) mmol/L Calcium 8.1 L (8.4-10.2) mg/dL Microbiology - Last 24 Hours (Table) 09/11/16 17:43 Urine Culture - Final Urine,Catheterized Providencia rettgeri Pseudomonas aeruginosa Assessment and Plan Plan: Assessment: #1. Nonoliguric acute kidney injury mostly prerenal in nature secondary to severe intravascular volume depletion secondary to vomiting and diarrhea as well as hypotension. Creatinine 3.29 on admission. Stable at 1.18 today. Baseline creatinine is near 1. #2. Hypokalemia secondary to GI losses. Improved. #3. History of urinary retention with a chronic indwelling Akins catheter in place. #4. Intractable nausea vomiting and diarrhea. Likely viral syndrome. Improved. #5. Anemia. Hemoglobin stable at 10.0. Mild iron deficiency present. Stool for occult blood positive. Status post endoscopy with no active bleeding noted. #6. 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 Renal ultrasound reveals small sized kidneys with cortical thinning suggestive of underlying chronic kidney disease. #7. Hypovolemic hypernatremia secondary to lack of oral water intake. Improved. #8. Hypomagnesemia. Improved post replacement. #9. UTI. Urine culture positive for Providencia. #10. Metabolic acidosis secondary acute kidney injury and diarrhea. Plan: Continue normal saline to run at 50 mL an hour. Avoid nephrotoxic agents and hypotensive episodes. Repeat electrolytes in the morning. Monitor hemoglobin closely. Status post IV iron. Encourage oral intake. Continue oral sodium bicarbonate supplementation. Stable to be discharged from nephrology standpoint and to follow-up as an outpatient in the next 2 weeks.
--- NOTE | 2016-09-15 11:28 | P.CRDCN ---
History of Present Illness Consult date: 09/15/16 History of present illness: This is a 80-year-old gentleman who was admitted to the hospital with complaints of nausea vomiting and diarrhea. Apparently was hypotensive on admission and had creatinine of up to 3.29. He was hypokalemic on admission with a potassium of 2.5. Patient received replacement with IV fluids. Patient has chronic COPD with home oxygen. We're asked to see the patient because of suspected cardiac arrhythmias. Patient is found to have frequent APCs, PVCs, short bursts of nonsustained arrhythmias probably atrial fibrillation with fast and corresponds. Patient also had some episodes where it looked like ventricular tachycardia but close inspection is suggestive of artifact. Patient is asymptomatic from this arrhythmias. Denies any chest pain and palpitation dizziness or syncope. Denies having any cardiac issues in the past like myocardial infarction. His echocardiogram from May of last year showed good LV function. Patient is currently on atenolol 25 mg once daily. I' ll continue the current dose. We will continue aspirin. I would not add any medication at this time unless the menstrual have any sustained arrhythmias. Review of Systems As per the chart Past Medical History Past Medical History: Cancer, Heart Failure, COPD, Deep Vein Thrombosis (DVT), GERD/Reflux, Hyperlipidemia, Hypertension, Pneumonia, Prostate Disorder Additional Past Medical History / Comment(s): 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 History of Any Multi-Drug Resistant Organisms: None Reported Past Surgical History: Appendectomy, Tonsillectomy Additional Past Surgical History / Comment(s): AAA, NAYAN ROTATOR CUFF,NAYAN THUMB SX, LARYNGOSCOPY FOR HORSENESS,LT VOCAL CORD WEAKNESS.NEEDLE ASPIRATION LT LUNG MASS WAS POSITIVE FOR CANCER -PT STATED HE COMPLETED 5 RADIATION TREATMENTS. Past Anesthesia/Blood Transfusion Reactions: No Reported Reaction Additional Past Anesthesia/Blood Transfusion Reaction / Comment(s): blood transfusion Past Psychological History: No Psychological Hx Reported Additional Psychological History / Comment(s): pt currently lives at [facility]. able to care for self cook/bath PTS DAUGHTER AND GRAND DAUGHTER ARE HELPING OUT.. 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 Smoking Status: Former smoker Past Alcohol Use History: None Reported Additional Past Alcohol Use History / Comment(s): STARTED SMOKING AT AGE 18 QUIT 2006 SMOKED 1 PPD Past Drug Use History: None Reported - Past Family History Father Family Medical History: Coronary Artery Disease (CAD) Mother Additional Family Medical History / Comment(s): ANEMIA Medications and Allergies Home Medications Medication Instructions Recorded Confirmed Type Budesonide [Pulmicort] 0.5 mg INHALATION RT-BID 12/28/13 09/07/16 History Ranitidine HCl [Zantac] 150 mg PO BID 12/28/13 09/07/16 History Aspirin EC [Ecotrin] 325 mg PO DAILY 02/20/16 09/07/16 History Acetaminophen Tab [Tylenol] 325 - 650 mg PO Q4HR PRN 05/29/16 09/07/16 History Albuterol Nebulized [Ventolin 2.5 mg INHALATION RT-Q6H 09/07/16 09/07/16 History Nebulized] Atenolol [Tenormin] 25 mg PO DAILY 09/07/16 09/07/16 History Diphenox-Atrop 2.5-0.025 mg 1 - 2 tab PO QID PRN 09/07/16 09/07/16 History [Lomotil] traZODone HCL 50 - 100 mg PO HS PRN 09/07/16 09/07/16 History Allergies Allergy/AdvReac Type Severity Reaction Status Date / Time ceftriaxone sodium Allergy Itching Verified 09/07/16 17:10 [From Rocephin] Iodinated Contrast Media - Allergy Anaphylaxis Verified 09/07/16 17:10 Oral and [Iodinated Contrast Media - IV Dye] levofloxacin Allergy Itching Verified 09/07/16 17:10 Physical Exam Vitals: Vital Signs Temp Pulse Pulse Resp BP Pulse Ox 09/15/16 07:57 84 09/15/16 07:46 84 09/15/16 07:00 97.9 F 55 L 18 135/60 97 09/15/16 02:54 88 09/15/16 02:45 80 09/14/16 22:38 96.6 F L 63 16 133/68 99 09/14/16 20:11 80 09/14/16 19:54 80 09/14/16 16:35 80 09/14/16 16:28 76 09/14/16 15:00 97.9 F 77 16 112/59 99 09/14/16 12:05 74 09/14/16 11:53 72 Intake and Output 09/14/16 09/15/16 09/15/16 22:59 06:59 14:59 Intake Total 590 400 Output Total 900 Balance 590 -500 Intake: IV 400 Sodium Chloride 0.9% 1, 400 000 ml @ 50 mls/hr IV . Q20H [facility] Rx#:[id number] Oral 590 Output: Urine 900 Other: Voiding Method Indwelling Catheter Indwelling Catheter # Bowel Movements 1 Weight 53.5 kg 55.5 kg GENERAL EXAM: Patient is alert and oriented and doesn't appear to be in any acute distress HEENT: Normocephalic. Normal reaction of pupils, equal size, normal range of extraocular motion. No erythema or exudates in the throat. NECK: No masses, no nuchal rigidity. CHEST: No chest wall deformity. LUNGS: Diminished breath sounds both sides with hyperresonance on percussion. HEART: S1 and S2 normal with no audible mumurs or gallops. Regular rhythm, femorals equal on both sides.. ABDOMEN: No hepatosplenomegaly, normal bowel sounds, no guarding or rigidity. SKIN: No rashes CENTRAL NERVOUS SYSTEM: No focal deficits. EXTREMITIES: No cyanosis, clubbing or edema. Results 09/11/16 07:42 09/15/16 08:00 Comprehensive Metabolic Panel 09/15/16 Range/Units 08:00 Sodium 142 (137-145) mmol/L Potassium 4.4 (3.5-5.1) mmol/L Chloride 116 H (98-107) mmol/L Carbon Dioxide 18 L (22-30) mmol/L BUN 11 (9-20) mg/dL Creatinine 1.18 (0.66-1.25) mg/dL Glucose 95 (74-99) mg/dL Calcium 8.1 L (8.4-10.2) mg/dL Current Medications Generic Name Dose Route Start Last Admin Trade Name Freq PRN Reason Stop Dose Admin Acetaminophen 650 mg 09/08/16 10:47 Tylenol Tab PO Q4HR PRN Fever and/ or Pain Albuterol Sulfate 2.5 mg 09/08/16 20:45 09/15/16 02:45 Ventolin Nebulized INHALATION 2.5 mg RT-QID PRN Administration Shortness Of Breath Or Wheezing Albuterol Sulfate 2.5 mg 09/09/16 08:00 09/15/16 11:10 Ventolin Nebulized INHALATION 2.5 mg RT-QID KEL Administration Aspirin 325 mg 09/09/16 09:00 09/15/16 08:23 Aspirin PO 325 mg DAILY KEL Administration Atenolol 25 mg 09/08/16 09:00 09/15/16 08:23 Tenormin PO 25 mg DAILY KEL Administration Budesonide 0.5 mg 09/07/16 20:00 09/15/16 07:46 Pulmicort INHALATION 0.5 mg RT-BID KEL Administration Diphenoxylate HCl/Atropine 1 each 09/08/16 10:48 Lomotil PO QID PRN Diarrhea Guaifenesin/Codeine Phosphate 10 ml 09/08/16 10:58 09/08/16 23:41 Robitussin Ac PO 10 ml Q6H PRN Administration Cough Aztreonam 2 gm/ Sodium 100 mls @ 100 mls/hr 09/11/16 15:00 09/15/16 05:21 Chloride IVPB 100 mls/hr 0600,1800 KEL Administration Sodium Chloride 1,000 mls @ 50 mls/hr 09/13/16 11:00 09/15/16 07:20 Saline 0.9% IV Not Given .Q20H [facility] Miscellaneous Information 1 each 09/09/16 07:02 Potassium Per Protocol MISCELLANE DAILY PRN Per Protocol Protocol Naloxone HCl 0.2 mg 09/07/16 19:11 Narcan IV Q2M PRN Opioid Reversal Ondansetron HCl 4 mg 09/07/16 19:11 Zofran IVP Q8HR PRN Nausea And Vomiting Pantoprazole Sodium 40 mg 09/12/16 09:00 09/15/16 08:23 Protonix PO 40 mg DAILY KEL Administration Sodium Bicarbonate 650 mg 09/14/16 09:45 09/15/16 08:23 Sodium Bicarbonate Tab PO 650 mg BID KEL Administration Tamsulosin HCl 0.4 mg 09/09/16 08:30 09/15/16 08:23 Flomax PO 0.4 mg PC-BRKFST KEL Administration Trazodone HCl 50 mg 09/08/16 10:48 Desyrel PO HS PRN Insomnia Intake and Output 09/14/16 09/15/16 09/15/16 22:59 06:59 14:59 Intake Total 590 400 Output Total 900 Balance 590 -500 Intake: IV 400 Sodium Chloride 0.9% 1, 400 000 ml @ 50 mls/hr IV . Q20H [facility] Rx#:[id number] Oral 590 Output: Urine 900 Other: Voiding Method Indwelling Catheter Indwelling Catheter # Bowel Movements 1 Weight 53.5 kg 55.5 kg 09/11/16 07:42 09/15/16 08:00 EKG Interpretations (text) Sinus rhythm Assessment and Plan (1) Cardiac arrhythmia Status: Acute (2) THUY (acute kidney injury) Status: Acute (3) Dehydration Status: Acute (4) Hypokalemia Status: Acute (5) Acute exacerbation of chronic obstructive airways disease Status: Acute (6) Squamous cell lung cancer Status: Chronic Plan: Patient is admitted with acute renal injury and hypokalemia and also dehydration. Patient is feeling better. We're asked to see the patient because of cardiac arrhythmias. Most of the time patient has APCs, PVCs and episodes of nonsustained arrhythmias of about 10-15 beats suggestive of atrial fibrillation. There are episodes where it appeared that patient may have ventricular arrhythmia but appears to be mostly artifacts. Patient is currently on atenolol 25 mg. Patient is a symptomatically from these arrhythmias. His LV function is well-preserved. I will recommend to continue current medical therapy along with aspirin. I would not add any new medication unless patient hasn't sustained arrhythmias. Some of these arrhythmias may be requested by the pulmonary treatments. Thank you
--- NOTE | 2016-09-15 11:54 | P.DS ---
Providers Date of admission: 09/07/16 19:11 Expected date of discharge: 09/15/16 Attending physician: Diogo Junior Consults: 09/08/16 10:56 Consult Physician Urgent Consulting Provider: Raf Snyder Consult Reason/Comments: Acute renal failure Do you want consulting provider notified?: Yes 09/09/16 09:05 Consult Physician Urgent Consulting Provider: Fahad Talbot Consult Reason/Comments: stool postive Do you want consulting provider notified?: Yes 09/11/16 11:37 Consult Physician Stat Consulting Provider: Juanis Berger Consult Reason/Comments: UTI recommendations antibiotics Do you want consulting provider notified?: Yes 09/14/16 14:58 Consult Physician Stat Consulting Provider: Jaylon Anton Consult Reason/Comments: Cardiac arrhythmias Do you want consulting provider notified?: Yes Primary care physician: Diogo Treviñohven [facility] Course: 80-year-old presented to the emergency room after being seen by his primary care provider in the office for a chief complaint of experiencing nausea vomiting diarrhea for the past week. Patient was advised to come to the emergency room to be evaluated for the above-mentioned symptoms. Patient stated that he had been vomiting and had vomited at least 3 times in the last 24 hours and had 2 loose stools. There was no blood noted in the vomit that was no blood noted in the stool. Patient admits to poor oral intake. Patient also states he has been feeling fatigued no appetite patient has a history of COPD uses supplemental home oxygen 3 L [id number]. Additionally the patient has a history of lung cancer which the patient has completed radiation treatment. Patient stated he was not experiencing any shortness of breath just the intractable nausea vomiting and loose stool. In the emergency room the temp is 97.9 heart rate was in the 60s. Patient's potassium was 2.5 the creatinine was up to 3.2. Hemoglobin stable at 13. Given the above clinical presentation the patient was advised to be admitted to the hospital for further evaluation. IV fluid has been initiated. Patient has had 2 loose stools with no blood noted since 7 AM on the day of admission. There is been adequate urine output patient has an indwelling Akins catheter which is chronic. Patient states he has not been on any antibiotic therapy. Patient also reports there is been no new medication changes. Patient states he gets his indwelling Akins catheter changed monthly and is due to be changed tomorrow on the Additionally patient was seen by Dr. Talbot surgical service. Patient did elect to undergo an EGD and colonoscopy as part of the workup for the black stool for a possible GI bleed. The EGD and colonoscopy were done on September 10. EGD showed gastritis, distal esophagitis. The colonoscopy showed ascending colon polyp 2 with hemorrhoids. There was no evidence of any acute bleed. They recommended a repeat colonoscopy in one year because of the polyps in the ascending colon. The biopsies needed to be followed up in the outpatient setting. The internal/external hemorrhoids were noted to show no evidence of any recent or active bleeding there was no visible diverticulosis there were no further episodes of black stool. Additionally a nephrology consultation was requested. Creatinine at the time admission was 3.2. His was started on IV hydration and the nausea vomiting diarrhea that the patient had been experiencing in the outpatient setting had improved. Stools were positive for occult blood. C. diff was negative. 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 And on the day of discharge the baseline creatinine was back to its near level of 1 the indwelling Akins catheter was changed this admission as well A cardiology consultation was requested. The request for the cardiology bowel was for suspected cardiac arrhythmias. Patient was found have frequent PVCs and PACs and a short burst of nonsustained arrhythmias likely atrial fibrillation. Patient had some episodes of what look like ventricular tachycardia but cardiology felt that these are more suggestive of artifact. Patient was asymptomatic with the episodes. Cardiology indicated that aspirin should be continued at its current dose and they did not want to add any medication at this time. Patient's echocardiogram done in May 2016 showed good LV function with mild pulmonary hypertension EF 55% Additionally patient was seen by infectious disease treated for a UTI in which the patient had completed a course of antibiotics at the time of discharge there was no need for further antibiotic therapy On the day of discharge patient was felt to be hemodynamically stable and appropriate to proceed with a discharge to home Impression discharge diagnosis Episodes of cardiac arrhythmia nonsustained 10-15 beats suggestive of paroxysmal atrial fibrillation asymptomatic not felt to be an anticoagulation candidate\ Echocardiogram May 2016 preserved LV function with mild pulmonary hypertensionImpression Present on admission intractable nausea vomiting diarrhea with clinical dehydration suspect viral gastroenteritis stool for C. diff negative Present on admission severe electrolyte imbalance hypokalemic suspect due to intractable nausea vomiting diarrhea History of urinary retention with chronic indwelling Akins catheter changed monthly echocardiogram May 2016 EF 50-55% preserved LV function no pulmonary hypertension History of a left lung mass with needle biopsy confirmed cancer status post radiation treatment completed August 2015 History of nicotine dependency quit in 2005 smoke one pack a day greater than 40 year history Acute on chronic hypoxic respiratory failure Present on admission acute kidney injury suspect due to volume depletion Chronic kidney disease stage III likely due to nephrosclerosis 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 completed August 2015 End-stage lung disease secondary to severe COPD Anemia of chronic illness Acute blood loss anemia suspect lower GI source Hypo-magnesium replaced corrected resolved Status post EGD colonoscopy done on September 10 shows gastritis and distal esophagitis, ascending colon polyp 2 no active bleed UTI gram-negative bacilli suspect due to chronic indwelling Akins catheter completed a course of antibiotics no antibiotics at the time of discharge The above dictated assessment and findings were discussed with dr tory Verdin and the plan of care have been dictated as directed. Paula Chavarria nurse practitioner acting as a scribe for dr junior Patient Condition at Discharge: Good Plan - Discharge Summary New Discharge Prescriptions: Sodium Bicarbonate Tab 650 mg PO BID #60 tab Discharge Medication List Budesonide [Pulmicort] 0.5 mg INHALATION RT-BID 12/28/13 [History] Ranitidine HCl [Zantac] 150 mg PO BID 12/28/13 [History] Aspirin EC [Ecotrin] 325 mg PO DAILY 02/20/16 [History] Acetaminophen Tab [Tylenol] 325 - 650 mg PO Q4HR PRN 05/29/16 [History] Tamsulosin [Flomax] 0.4 mg PO PC-BRKFST #30 cap.er.24h 06/04/16 [Rx] Albuterol Nebulized [Ventolin Nebulized] 2.5 mg INHALATION RT-Q6H 09/07/16 [ History] Atenolol [Tenormin] 25 mg PO DAILY 09/07/16 [History] Diphenox-Atrop 2.5-0.025 mg [Lomotil] 1 - 2 tab PO QID PRN 09/07/16 [History] traZODone HCL 50 - 100 mg PO HS PRN 09/07/16 [History] Sodium Bicarbonate Tab 650 mg PO BID #60 tab 09/15/16 [Rx] Follow up Appointment(s)/Referral(s): Diogo Junior MD [Primary Care Provider] - 1-2 days [facility], [NON-STAFF] - 1 Week Discharge Disposition: HOME WITH HOME HEALTH SERVICES
[2016-09-15 12:29] VITALS: PULSE 86
--- NOTE | 2016-09-15 13:04 | PN ---
DATE OF SERVICE: 09/15/2016 Reason for followup is pseudomonas catheter-associated urinary tract infection. INTERVAL HISTORY: The patient is afebrile. He has been breathing comfortably. Denies significant chest pain or shortness of breath or cough. No abdominal pain. Diarrhea has resolved. On examination, blood pressure 135/60 with a pulse of 84, temperature 97.9. He is 97% on 3 L nasal cannula. General description is an elderly male, up in the bed in no distress. RESPIRATORY SYSTEM: Unlabored breathing. Clear to auscultation anteriorly. HEART: S1, S2. Regular rate and rhythm. ABDOMEN: Soft, no tenderness. LABS: BUN of 11, creatinine is 1.18. DIAGNOSTIC IMPRESSION AND PLAN: Patient with catheter-associated urinary tract infection, adequately treated. The patient did have diarrhea and renal insufficiency and high risk of nephrotoxicity from Bactrim DS. The patient received about 5 days of IV antibiotic, should be enough. No need for antibiotic at time of discharge. Plan of care was discussed with the nurse practitioner for the primary team. CONNOR
== END 2016-09-15 14:10 | disposition home health service (06) | DRG 682 ==
LOC: EC 14:04 → 6SEL 19:11 → 5ONC 09-09 17:00
PROVIDERS: ADMIT Family Medicine; ATTEND Family Medicine
PROC: 0DBK8ZZ Excision of Ascending Colon, Via Natural or Artificial Opening Endoscopic (ICD-10-PCS; principal; 2016-09-10 13:45)
PROC: 0DB68ZX Excision of Stomach, Via Natural or Artificial Opening Endoscopic, Diagnostic (ICD-10-PCS; principal; 2016-09-10 13:45)
PROC: 0DB38ZX Excision of Lower Esophagus, Via Natural or Artificial Opening Endoscopic, Diagnostic (ICD-10-PCS; principal; 2016-09-10 13:45)
DX: N17.9 Acute kidney failure, unspecified (principal); J96.21 Acute and chronic respiratory failure with hypoxia; E87.0 Hyperosmolality and hypernatremia; E87.2 Acidosis; D62 Acute posthemorrhagic anemia; I13.0 Hypertensive heart and chronic kidney disease with heart failure and stage 1 through stage 4 chronic kidney disease, or unspecified chronic kidney disease; I50.9 Heart failure, unspecified; I27.2 Other secondary pulmonary hypertension; J44.1 Chronic obstructive pulmonary disease with (acute) exacerbation; E86.0 Dehydration; I48.0 Paroxysmal atrial fibrillation; N39.0 Urinary tract infection, site not specified; T83.518A Infection and inflammatory reaction due to other urinary catheter, initial encounter; B96.89 Other specified bacterial agents as the cause of diseases classified elsewhere; E86.1 Hypovolemia; E83.42 Hypomagnesemia; D63.8 Anemia in other chronic diseases classified elsewhere; D12.2 Benign neoplasm of ascending colon; B34.9 Viral infection, unspecified; E78.5 Hyperlipidemia, unspecified; E87.6 Hypokalemia; N18.3 Chronic kidney disease, stage 3 (moderate); I49.3 Ventricular premature depolarization; K21.0 Gastro-esophageal reflux disease with esophagitis; K29.70 Gastritis, unspecified, without bleeding; K52.9 Noninfective gastroenteritis and colitis, unspecified; K64.4 Residual hemorrhoidal skin tags; K64.8 Other hemorrhoids; Y84.6 Urinary catheterization as the cause of abnormal reaction of the patient, or of later complication, without mention of misadventure at the time of the procedure; Z82.49 Family history of ischemic heart disease and other diseases of the circulatory system; Z85.118 Personal history of other malignant neoplasm of bronchus and lung; Z86.79 Personal history of other diseases of the circulatory system; Z87.891 Personal history of nicotine dependence; Z88.1 Allergy status to other antibiotic agents; Z92.3 Personal history of irradiation; Z99.81 Dependence on supplemental oxygen; Z79.82 Long term (current) use of aspirin; Z79.899 Other long term (current) drug therapy; Z91.041 Radiographic dye allergy status
CPT/HCPCS: 36415; 43239; 45385; 76770; 80048; 80053; 80299; 81001; 82272; 82728; 83540; 83550; 83690; 83735; 84132; 85025; 87045; 87046; 87077; 87086; 87186; 87324; 88305; 88342; 89055; 94640; 94760; 96361; 96374; 96375; 99153; 99284

== ENCOUNTER → 2017-03-29 | Outpatient (CLI) | payer MEDICARE, OTHER ==
--- NOTE | 2017-03-29 14:21 | CT ---
EXAMINATION TYPE: CT chest wo con DATE OF EXAM: 03/29/2017 COMPARISON: 05/15/2016 HISTORY: Pulmonary nodule CT DLP: 105.[address] of the chest was performed with lung and mediastinal window settings submitted. The la ck of contrast limits evaluation of the vascular, mediastinal and parenchymal structures including th e upper abdomen. LUNGS: There is an enlarging spiculated mass right lower lobe which currently measures 2.9 x 2.8 cm v ersus 1.5 x 2.3 cm previously. This is compatible with malignancy. Stable area of irregular density m easuring 7 mm right lateral lung base image 54. Significant enlargement in left lower lobe pleural-ba sed mass with adjacent chest wall and osseous invasion. The mass currently measures an estimated 5.2 x 2.4 x 3.9 cm. Irregularity of left ribs 6 7 and 8. Increasing volume loss. Suspect left hilar adeno philip. Left lower lobe pleural thickening and small effusion. Hyperinflation compatible with COPD. MEDIASTINUM/HECTOR: Enlarging pericardial effusion with greatest transverse measurement of 1.5 cm. Co ronary artery calcifications. Atheromatous and ectatic change of the thoracic aorta. No evidence for mediastinal mass. No lymph nodes greater than 1cm. UPPER ABDOMEN: Hypoattenuating renal lesions may reflect cysts. OTHER: No significant other abnormality. IMPRESSION: 1. Enlarging left lower lobe pleural-based mass with chest wall invasion and irregularity of the adj acent ribs. Suspect left hilar adenopathy. 2. Enlarging spiculated mass right lower lobe felt to reflect malignancy until proven otherwise.
== END | disposition home or self-care (01) ==
LOC: RADCTMAIN 13:27
PROVIDERS: ATTEND Internal Medicine Sleep Medicine
DX: R91.8 Other nonspecific abnormal finding of lung field (principal); R93.7 Abnormal findings on diagnostic imaging of other parts of musculoskeletal system
CPT/HCPCS: 71250

== ENCOUNTER → 2017-04-24 | Outpatient (CLI) | payer MEDICARE, OTHER ==
--- NOTE | 2017-04-27 15:58 | PE ---
Nuclear medicine PET/CT HISTORY: Lung cancer, C 34.32 Patient received 14.3 mCi F-18 FDG intravenously and delayed scanning performed from the skull base t o the mid thighs. Localization and attenuation correction CT scan was performed. Exam is correlated p rior chest CT 03/29/2017, CT abdomen pelvis 05/29/2016, CT chest 05/15/2016 and nuclear medicine PET/CT 10/05/2015, 12/28/2015 Neck and chest: Within the right lower lobe there is a mass present measuring approximately 4.4 cm in greatest dimension however there are some spiculated margins and suggestion of pleural extension as well as extension toward the right hilum. SUV is 16. Consolidation present within the left lower lobe is more ill-defined but shows associated air bronchograms extends towards the hilum and pleural surf laine. SUV is 3.4. Both abnormalities have increased in size as compared to previous exam, CT chest 04/18. Underlying emphysematous changes are present within the lungs. Subpleural soft tissue bands a re present. There is a left pleural effusion. Pericardial effusion is also present. Coronary artery c alcifications are present, ascending aorta is borderline enlarged at 4 cm. Abdomen pelvis: There is no adrenal mass. Probable cyst associated with the right kidney. Postop lara ge noted to the abdominal aorta. No suspicious hypermetabolic uptake. No free fluid. Large amount of retained urine within the bladder. Osseous structures are remarkable for posterior lateral left rib fractures 6-9th ribs. Sclerosis pres ent at the seventh rib fracture shows associated hypermetabolic uptake, SUV 3.7 IMPRESSION: Findings are pattern with patient's history of bronchogenic carcinoma. Consolidation with in the left lung is possibly due to trauma, atelectasis or lung contusion, there are local associated rib fractures two of which were present on prior CT chest dated 2015, this could be residuum from pr ior treatment, osteonecrosis within the ribs. Pericardial effusion. Ascending aortic dilation.
== END | disposition home or self-care (01) ==
LOC: RADPETMAIN 08:30
PROVIDERS: ATTEND Radiology Radiation Oncology
DX: C34.32 Malignant neoplasm of lower lobe, left bronchus or lung (principal); I31.3 Pericardial effusion (noninflammatory); I77.810 Thoracic aortic ectasia
CPT/HCPCS: 78815; A9552

== ENCOUNTER 2017-08-15 13:29 | Inpatient (IN) | payer MEDICARE, OTHER ==
[2017-08-15] MEDS ORDERED: SODIUM CHLORIDE 0.9% 1,000 ML IV STA (13:46)
--- NOTE | 2017-08-15 14:00 | ED ---
General Adult HPI - General Chief complaint: Fall Stated complaint: Fall Time Seen by Provider: 08/15/17 13:41 Source: patient, EMS, RN notes reviewed Mode of arrival: EMS Limitations: physical limitation - History of Present Illness Initial comments: Patient is an 81-year-old male who presents emergency room today with a chief complaint of a fall occurred this morning. He states he was sitting on his sofa when he went to get up and lost his balance falling forward hitting his head on the coffee table. He states he had a difficult time getting himself up lesions down on the ground for approximately 4 hours. He states that this clearly did come and called EMS. Patient does admit to a mild headache. He denies any neck pain. He admits to pain in his butt from sitting on the ground. He denies any other injuries from the fall. Denies any other complaints currently. Patient aware if he is on a blood thinner. Patient denies any recent fever, chills, shortness of breath, chest pain, abdominal pain , nausea or vomiting, numbness or tingling, dysuria or hematuria, constipation or diarrhea, visual changes, or any other complaints. - Related Data Home Medications Medication Instructions Recorded Confirmed Ranitidine HCl [Zantac] 150 mg PO BID 12/28/13 08/15/17 Aspirin EC [Ecotrin] 325 mg PO DAILY 02/20/16 08/15/17 Acetaminophen Tab [Tylenol] 325 - 650 mg PO Q4HR PRN 05/29/16 08/15/17 Atenolol [Tenormin] 25 mg PO DAILY 09/07/16 08/15/17 traZODone HCL 50 - 100 mg PO HS 09/07/16 08/15/17 Furosemide [Lasix] 40 mg PO DAILY 08/15/17 08/15/17 HYDROcodone/APAP 7.5-325MG [[place] 1 tab PO Q4H PRN 08/15/17 08/15/17 7.5-325] Simvastatin [Zocor] 20 mg PO HS 08/15/17 08/15/17 Zolpidem [Ambien] 5 mg PO HS PRN 08/15/17 08/15/17 traMADol HCL [Ultram] 50 - 100 mg PO Q6HR PRN 08/15/17 08/15/17 Allergies Allergy/AdvReac Type Severity Reaction Status Date / Time ceftriaxone sodium Allergy Itching Verified 08/15/17 14:06 [From Rocephin] Iodinated Contrast- Oral and Allergy Anaphylaxis Verified 08/15/17 14:06 IV Dye [Iodinated Contrast Media - IV Dye] levofloxacin Allergy Itching Verified 08/15/17 14:06 Review of Systems ROS Statement: Those systems with pertinent positive or pertinent negative responses have been documented in the HPI. ROS Other: All systems not noted in ROS Statement are negative. Past Medical History Past Medical History: Cancer, Heart Failure, COPD, Deep Vein Thrombosis (DVT), GERD/Reflux, Hyperlipidemia, Hypertension, Pneumonia, Prostate Disorder Additional Past Medical History / Comment(s): 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 History of Any Multi-Drug Resistant Organisms: None Reported Past Surgical History: Appendectomy, Tonsillectomy Additional Past Surgical History / Comment(s): AAA, NAYAN ROTATOR CUFF,NAYAN THUMB SX, LARYNGOSCOPY FOR HORSENESS,LT VOCAL CORD WEAKNESS.NEEDLE ASPIRATION LT LUNG MASS WAS POSITIVE FOR CANCER -PT STATED HE COMPLETED 5 RADIATION TREATMENTS. Past Anesthesia/Blood Transfusion Reactions: No Reported Reaction Additional Past Anesthesia/Blood Transfusion Reaction / Comment(s): blood transfusion Past Psychological History: No Psychological Hx Reported Smoking Status: Former smoker Past Alcohol Use History: None Reported Past Drug Use History: None Reported - Past Family History Father Family Medical History: Coronary Artery Disease (CAD) Mother Additional Family Medical History / Comment(s): ANEMIA General Exam - General Exam Comments Initial Comments: General: The patient is awake and alert, in no distress, and does not appear acutely ill. Eye: Pupils are equal, round and reactive to light, extra-ocular movements are intact. No nystagmus. There is normal conjunctiva bilaterally. No signs of icterus. Ears, nose, mouth and throat: There are moist mucous membranes and no oral lesions. Neck: The neck is supple, there is no tenderness or JVD. Cardiovascular: There is a regular rate and rhythm. No murmur, rub or gallop is appreciated. Respiratory: Lungs are clear to auscultation, respirations are non-labored, breath sounds are equal. No wheezes, stridor, rales, or rhonchi. Gastrointestinal: Soft, non-distended, non-tender abdomen without masses or organomegaly noted. There is no rebound or guarding present. No CVA tenderness. Musculoskeletal: Normal ROM, no tenderness. Normal appearance of cervical spine. Normal appearance of the thoracic or lumbar spina. No tenderness midline. Strength 5/5. Sensation intact. Pulses equal bilaterally 2+. Neurological: A&O x 3. CN II-XII intact, There are no obvious motor or sensory deficits. Coordination appears grossly intact. Speech is normal. Skin: Skin is warm and dry and no rashes or lesions are noted. Psychiatric: Cooperative, appropriate mood & affect, normal judgment. Limitations: physical limitation Course Vital Signs 08/15/17 08/15/17 08/15/17 13:50 14:40 17:38 Pulse Rate 90 87 Respiratory 16 18 Rate Blood Pressure 170/101 176/93 174/79 O2 Sat by Pulse 100 94 L Oximetry EKG Findings - EKG Comments: EKG Findings:: EKG performed at 1351: Sinus rhythm at 88 beats per minute with occasional PVCs. MD interval 192. QRS 104. QT/QTc 442/510. Medical Decision Making - Medical Decision Making Patient's labs been reviewed does show some small blood in the urine. Patient' s CK mildly elevated greater than 400. Patient was Avinash Gropper approximately 4 hours. He does admit to feeling very sore. Patient lives at home by himself. He has no one to stay with. Patient's remaining labs reviewed does show mildly elevated creatinine at 1.5 and hemoglobin is 10.Previous labs shows similar findings. Patient will be admitted to observation. Case was discussed with the patient in he states understanding - Lab Data Result diagrams: 08/15/17 14:00 08/15/17 14:00 Lab Results 08/15/17 08/15/17 08/15/17 Range/Units 14:00 14:00 14:00 WBC 6.4 (3.8-10.6) k/uL RBC 3.21 L (4.30-5.90) m/uL Hgb 10.0 L (13.0-17.5) gm/dL Hct 33.2 L (39.0-53.0) % MCV 103.4 H (80.0-100.0) fL MCH 31.1 (25.0-35.0) pg MCHC 30.1 L (31.0-37.0) g/dL RDW 16.0 H (11.5-15.5) % Plt Count 187 (150-450) k/uL Neutrophils % 87 % Lymphocytes % 8 % Monocytes % 4 % Eosinophils % 1 % Basophils % 0 % Neutrophils # 5.6 (1.3-7.7) k/uL Lymphocytes # 0.5 L (1.0-4.8) k/uL Monocytes # 0.2 (0-1.0) k/uL Eosinophils # 0.0 (0-0.7) k/uL Basophils # 0.0 (0-0.2) k/uL Hypochromasia Slight Macrocytosis Slight PT (9.0-12.0) sec INR (<1.2) APTT (22.0-30.0) sec Sodium 138 (137-145) mmol/L Potassium 4.6 (3.5-5.1) mmol/L Chloride 104 (98-107) mmol/L Carbon Dioxide 28 (22-30) mmol/L Anion Gap 6 mmol/L BUN 18 (9-20) mg/dL Creatinine 1.50 H (0.66-1.25) mg/dL Est GFR (MDRD) Af Amer 54 (>60 ml/min/1.73 sqM) Est GFR (MDRD) Non-Af 45 (>60 ml/min/1.73 sqM) Glucose 108 H (74-99) mg/dL Calcium 9.8 (8.4-10.2) mg/dL Total Bilirubin 0.8 (0.2-1.3) mg/dL AST 27 (17-59) U/L ALT 22 (21-72) U/L Alkaline Phosphatase 64 (38-126) U/L Total Creatine Kinase 416 H (55-170) U/L CK-MB (CK-2) 2.5 H* (0.0-2.4) ng/mL CK-MB (CK-2) Rel Index 0.6 Troponin I 0.025 (0.000-0.034) ng/mL Total Protein 6.2 L (6.3-8.2) g/dL Albumin 3.6 (3.5-5.0) g/dL Urine Color Urine Appearance (Clear) Urine pH (5.0-8.0) Ur Specific [place] (1.001-1.035) Urine Protein (Negative) Urine Glucose (UA) (Negative) Urine Ketones (Negative) Urine Blood (Negative) Urine Nitrite (Negative) Urine Bilirubin (Negative) Urine Urobilinogen (<2.0) mg/dL Ur Leukocyte Esterase (Negative) Urine RBC (0-5) /hpf Urine WBC (0-5) /hpf Urine Mucus (None) /hpf 08/15/17 08/15/17 Range/Units 14:00 14:00 WBC (3.8-10.6) k/uL RBC (4.30-5.90) m/uL Hgb (13.0-17.5) gm/dL Hct (39.0-53.0) % MCV (80.0-100.0) fL MCH (25.0-35.0) pg MCHC (31.0-37.0) g/dL RDW (11.5-15.5) % Plt Count (150-450) k/uL Neutrophils % % Lymphocytes % % Monocytes % % Eosinophils % % Basophils % % Neutrophils # (1.3-7.7) k/uL Lymphocytes # (1.0-4.8) k/uL Monocytes # (0-1.0) k/uL Eosinophils # (0-0.7) k/uL Basophils # (0-0.2) k/uL Hypochromasia Macrocytosis PT 10.0 (9.0-12.0) sec INR 1.0 (<1.2) APTT 21.3 L (22.0-30.0) sec Sodium (137-145) mmol/L Potassium (3.5-5.1) mmol/L Chloride (98-107) mmol/L Carbon Dioxide (22-30) mmol/L Anion Gap mmol/L BUN (9-20) mg/dL Creatinine (0.66-1.25) mg/dL Est GFR (MDRD) Af Amer (>60 ml/min/1.73 sqM) Est GFR (MDRD) Non-Af (>60 ml/min/1.73 sqM) Glucose (74-99) mg/dL Calcium (8.4-10.2) mg/dL Total Bilirubin (0.2-1.3) mg/dL AST (17-59) U/L ALT (21-72) U/L Alkaline Phosphatase (38-126) U/L Total Creatine Kinase (55-170) U/L CK-MB (CK-2) (0.0-2.4) ng/mL CK-MB (CK-2) Rel Index Troponin I (0.000-0.034) ng/mL Total Protein (6.3-8.2) g/dL Albumin (3.5-5.0) g/dL Urine Color Yellow Urine Appearance Clear (Clear) Urine pH 7.5 (5.0-8.0) Ur Specific [place] 1.011 (1.001-1.035) Urine Protein Trace H (Negative) Urine Glucose (UA) Negative (Negative) Urine Ketones Trace H (Negative) Urine Blood Small H (Negative) Urine Nitrite Negative (Negative) Urine Bilirubin Negative (Negative) Urine Urobilinogen <2.0 (<2.0) mg/dL Ur Leukocyte Esterase Negative (Negative) Urine RBC 4 (0-5) /hpf Urine WBC 1 (0-5) /hpf Urine Mucus Rare H (None) /hpf Disposition Clinical Impression: Fall, Rhabdomyolysis, Anemia, Unsteady gait Disposition: ADMITTED IP TO THIS [facility] Condition: Good Time of Disposition: 17:13
[2017-08-15 14:11] LABS: Basophils % (A) 0 %; Eosinophils % (A) 1 %; HCT 33.2 % (39.0-53.0); Hypochromasia Slight; Lymphocytes # (A) 0.5 k/uL (1.0-4.8); Lymphocytes % (A) 8 %; MCH 31.1 pg (25.0-35.0); MCHC 30.1 g/dL (31.0-37.0); MCV 103.4 fL (80.0-100.0); Macrocytosis Slight; Mean Platelet Volume 8.9; Monocytes # (A) 0.2 k/uL (0-1.0); Monocytes % (A) 4 %; Neutrophils # (A) 5.6 k/uL (1.3-7.7); Neutrophils % (A) 87 %; Platelet Count 187 k/uL (150-450); RBC 3.21 m/uL (4.30-5.90); WBC 6.4 k/uL (3.8-10.6)
[2017-08-15 14:13] LABS: Appearance,Urine Clear (Clear); Bilirubin,Urine Negative (Negative); Blood,Urine Small (Negative); Color,Urine Yellow; Glucose,Urine (UA) Negative (Negative); Ketones,Urine Trace (Negative); Leukocyte Esterase,Urine Negative (Negative); Mucus,Urine Rare /hpf; Nitrite,Urine Negative (Negative); PH, Urine 7.5 (5.0-8.0); Protein,Urine Trace (Negative); RBC,Urine 4 /hpf (0-5); Specific Gravity,Urine 1.011 (1.001-1.035); Urobilinogen,Urine <2.0 mg/dL (<2.0); WBC,Urine 1 /hpf (0-5)
[2017-08-15 14:21] LABS: Albumin 3.6 g/dL (3.5-5.0); Calcium 9.8 mg/dL (8.4-10.2); Potassium 4.6 mmol/L (3.5-5.1); Total Bilirubin 0.8 mg/dL (0.2-1.3); Total Protein 6.2 g/dL (6.3-8.2)
[2017-08-15 14:28] LABS: Partial Thromboplastin Time 21.3 sec (22.0-30.0)
[2017-08-15 14:48] LABS: Troponin I 0.025 ng/mL (0.000-0.034)
[2017-08-15 14:50] LABS: Creatine Kinase MB 2.5 ng/mL (0.0-2.4)
--- NOTE | 2017-08-15 15:36 | CT ---
EXAMINATION TYPE: CT brain roger anders DATE OF EXAM: 08/15/2017 COMPARISON: NONE HISTORY: Fall today CT DLP: 1777.6 mGycm Automated exposure control for dose reduction was used. TECHNIQUE: CT scan of the head and cervical spine are performed without contrast. FINDINGS: There is cerebral cortical atrophy. There is no mass effect nor midline shift. There is s ome enlargement of the ventricles. There is patchy hypodensity in the periventricular white matter. T he calvarium is intact. There is straightening of the cervical spine. There is narrowing at C4-5 C5-6 C6-7 disc spaces with s purring of the endplates. The skull base is intact. There is no sign of a fracture. IMPRESSION: Cerebral atrophy and chronic small vessel ischemia. Normal pressure type hydrocephalus. Spondylotic changes in the mid and lower cervical spine. No fracture seen. Spine appears not signific antly different than 04/07/2014.
--- NOTE | 2017-08-15 16:00 | XR ---
EXAMINATION TYPE: XR lumbar spine 2 or 3V DATE OF EXAM: 08/15/2017 COMPARISON: NONE HISTORY: Pain TECHNIQUE: 3 views FINDINGS: Lumbar vertebra have normal alignment. Disc spaces are fairly normal for age. There is no c ompression fracture. Posterior elements are intact. There is atherosclerotic vascular calcification. Sacroiliac joints are intact. IMPRESSION: No acute abnormality of the lumbar spine. Mild degenerative spurring.
--- NOTE | 2017-08-15 16:01 | XR ---
EXAMINATION TYPE: XR pelvis AP view DATE OF EXAM: 08/15/2017 COMPARISON: NONE HISTORY: Pain TECHNIQUE: Single view FINDINGS: Pelvic ring appears intact. Proximal femurs and hip joints are intact. Hip joint spaces are fairly well-maintained. Sacroiliac joints appear normal. IMPRESSION: Negative pelvis x-ray exam.
[2017-08-15] MEDS ORDERED: NALOXONE 0.4 MG/ML 1 ML VIAL IV PRN (17:14)
[2017-08-15] MEDS ORDERED: traMADol 50 MG TAB PO PRN (17:16)
[2017-08-15] MEDS: traZODone HCL 50 MG TAB PO SCH (20:59)
[2017-08-15] MEDS: ATORVASTATIN 10 MG TAB PO SCH (20:59)
[2017-08-15] MEDS: HYDROcodone/APAP 7.5-325MG 1 EACH TAB PO PRN (21:04)
[2017-08-15] MEDS: FAMOTIDINE 20 MG TAB PO SCH (22:08)
[2017-08-16 07:05] LABS: Anisocytosis Slight; Basophils % (A) 1 %; Eosinophils # (A) 0.1 k/uL (0-0.7); Eosinophils % (A) 3 %; HCT 31.5 % (39.0-53.0); HGB 9.5 gm/dL (13.0-17.5); Hypochromasia Marked; Lymphocytes # (A) 0.9 k/uL (1.0-4.8); Lymphocytes % (A) 23 %; MCH 31.7 pg (25.0-35.0); MCV 105.7 fL (80.0-100.0); Macrocytosis Moderate; Mean Platelet Volume 8.6; Monocytes # (A) 0.2 k/uL (0-1.0); Monocytes % (A) 6 %; Neutrophils # (A) 2.5 k/uL (1.3-7.7); Neutrophils % (A) 66 %; Platelet Count 170 k/uL (150-450); RBC 2.98 m/uL (4.30-5.90); RDW 16.1 % (11.5-15.5); WBC 3.8 k/uL (3.8-10.6)
[2017-08-16 07:46] LABS: Albumin 3.1 g/dL (3.5-5.0); Calcium 9.2 mg/dL (8.4-10.2); Potassium 4.4 mmol/L (3.5-5.1); Total Protein 5.7 g/dL (6.3-8.2)
[2017-08-16] MEDS: ATENOLOL 25 MG TAB PO SCH (08:49)
[2017-08-16] MEDS: FAMOTIDINE 20 MG TAB PO SCH (08:49)
[2017-08-16] MEDS ORDERED: FAMOTIDINE 20 MG TAB PO SCH (09:00)
[2017-08-16] MEDS: ASPIRIN 325 MG TAB PO SCH (09:15)
[2017-08-16] MEDS: FUROSEMIDE 40 MG TAB PO SCH (09:15)
[2017-08-16] MEDS: HYDROcodone/APAP 7.5-325MG 1 EACH TAB PO PRN ×2 (12:11→17:51)
[2017-08-16] MEDS ORDERED: ONDANSETRON 4 MG/2 ML VIAL IVP PRN (13:14)
--- NOTE | 2017-08-16 13:40 | P.HPIM ---
History of Present Illness H&P Date: 08/16/17 Chief Complaint: Fall This is an 81-year-old gentleman who presented emergency department complaining of fall at home. The patient states that he is trying to get up from a couch and he lost his balance. He hit his head on the coffee table. He states that he was laying on the floor for 4-5 hours. And someone came and called EMS for him. He is complaining of left lower extremity pain and left elbow pain. The patient did not have any acute fractures on imaging. His CT of the head and c- spine shows no acute injury. His CPK increased to over 600 today. The patient notes that he has had frequent falls at home. Review of Systems All systems: negative Past Medical History Past Medical History: Cancer, Heart Failure, COPD, Deep Vein Thrombosis (DVT), GERD/Reflux, Hyperlipidemia, Hypertension, Pneumonia, Prostate Disorder Additional Past Medical History / Comment(s): 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 History of Any Multi-Drug Resistant Organisms: None Reported Past Surgical History: Appendectomy, Tonsillectomy Additional Past Surgical History / Comment(s): AAA, NAYAN ROTATOR CUFF,NAYAN THUMB SX, LARYNGOSCOPY FOR HORSENESS,LT VOCAL CORD WEAKNESS.NEEDLE ASPIRATION LT LUNG MASS WAS POSITIVE FOR CANCER -PT STATED HE COMPLETED 5 RADIATION TREATMENTS. Past Anesthesia/Blood Transfusion Reactions: No Reported Reaction Additional Past Anesthesia/Blood Transfusion Reaction / Comment(s): blood transfusion Smoking Status: Former smoker - Past Family History Father Family Medical History: Coronary Artery Disease (CAD) Mother Additional Family Medical History / Comment(s): ANEMIA Medications and Allergies Home Medications Medication Instructions Recorded Confirmed Type Ranitidine HCl [Zantac] 150 mg PO BID 12/28/13 08/15/17 History Atenolol [Tenormin] 25 mg PO DAILY 09/07/16 08/15/17 History HYDROcodone/APAP 7.5-325MG [[place] 1 tab PO Q4H PRN 08/15/17 08/15/17 History 7.5-325] Allergies Allergy/AdvReac Type Severity Reaction Status Date / Time ceftriaxone sodium Allergy Itching Verified 08/15/17 20:31 [From Rocephin] Iodinated Contrast- Oral and Allergy Anaphylaxis Verified 08/15/17 20:31 IV Dye [Iodinated Contrast Media - IV Dye] levofloxacin Allergy Itching Verified 08/15/17 20:31 Physical Exam Osteopathic Statement: *. No significant issues noted on an osteopathic structural exam other than those noted in the History and Physical/Consult. Vitals: Vital Signs Temp Pulse Pulse Resp BP BP Pulse Ox 08/16/17 08:00 97.3 F L 70 18 150/68 100 08/16/17 03:45 96.2 F L 69 18 168/77 100 08/16/17 03:26 16 08/15/17 23:59 16 08/15/17 22:25 95 08/15/17 20:00 99 F 88 16 169/79 89 L 08/15/17 17:38 87 18 174/79 94 L 08/15/17 14:40 176/93 08/15/17 13:50 90 16 170/101 100 Intake and Output 08/15/17 08/16/17 08/16/17 22:59 06:59 14:59 Intake Total 250 236 Output Total 350 Balance -100 236 Intake: Oral 250 236 Output: Urine 350 Other: Voiding Method Urinal Urinal Urinal Weight 43.5 kg Gen.: Patient is alert and oriented 3, no acute distress Cardiovascular: Regular rate and rhythm, S1/S2 Lungs: Diminished otherwise clear Abdomen: Soft nontender nondistended positive bowel sounds Extremities: Left lower extremity lateral ankle has some soft tissue swelling, left upper extremity elbow has bruising Results CBC & Chem 7: 08/16/17 06:49 08/16/17 06:49 Labs: Abnormal Lab Results - Last 24 Hours (Table) 08/15/17 08/15/17 08/15/17 Range/Units 14:00 14:00 14:00 RBC 3.21 L (4.30-5.90) m/uL Hgb 10.0 L (13.0-17.5) gm/dL Hct 33.2 L (39.0-53.0) % MCV 103.4 H (80.0-100.0) fL MCHC 30.1 L (31.0-37.0) g/dL RDW 16.0 H (11.5-15.5) % Lymphocytes # 0.5 L (1.0-4.8) k/uL APTT (22.0-30.0) sec Sodium (137-145) mmol/L Creatinine 1.50 H (0.66-1.25) mg/dL Glucose 108 H (74-99) mg/dL Creatine Kinase (55-170) U/L Total Creatine Kinase 416 H (55-170) U/L CK-MB (CK-2) 2.5 H* (0.0-2.4) ng/mL Total Protein 6.2 L (6.3-8.2) g/dL Albumin (3.5-5.0) g/dL Urine Protein (Negative) Urine Ketones (Negative) Urine Blood (Negative) Urine Mucus (None) /hpf 08/15/17 08/15/17 08/16/17 Range/Units 14:00 14:00 06:49 RBC 2.98 L (4.30-5.90) m/uL Hgb 9.5 L (13.0-17.5) gm/dL Hct 31.5 L (39.0-53.0) % MCV 105.7 H (80.0-100.0) fL MCHC 30.0 L (31.0-37.0) g/dL RDW 16.1 H (11.5-15.5) % Lymphocytes # 0.9 L (1.0-4.8) k/uL APTT 21.3 L (22.0-30.0) sec Sodium (137-145) mmol/L Creatinine (0.66-1.25) mg/dL Glucose (74-99) mg/dL Creatine Kinase (55-170) U/L Total Creatine Kinase (55-170) U/L CK-MB (CK-2) (0.0-2.4) ng/mL Total Protein (6.3-8.2) g/dL Albumin (3.5-5.0) g/dL Urine Protein Trace H (Negative) Urine Ketones Trace H (Negative) Urine Blood Small H (Negative) Urine Mucus Rare H (None) /hpf 08/16/17 Range/Units 06:49 RBC (4.30-5.90) m/uL Hgb (13.0-17.5) gm/dL Hct (39.0-53.0) % MCV (80.0-100.0) fL MCHC (31.0-37.0) g/dL RDW (11.5-15.5) % Lymphocytes # (1.0-4.8) k/uL APTT (22.0-30.0) sec Sodium 136 L (137-145) mmol/L Creatinine 1.43 H (0.66-1.25) mg/dL Glucose 69 L (74-99) mg/dL Creatine Kinase 650 H (55-170) U/L Total Creatine Kinase (55-170) U/L CK-MB (CK-2) (0.0-2.4) ng/mL Total Protein 5.7 L (6.3-8.2) g/dL Albumin 3.1 L (3.5-5.0) g/dL Urine Protein (Negative) Urine Ketones (Negative) Urine Blood (Negative) Urine Mucus (None) /hpf CT Scan - head: report reviewed, image reviewed Thrombosis Risk Factor Assmnt - DVT/VTE Prophylaxis DVT/VTE Prophylaxis: Pharmacologic Prophylaxis ordered, Mechanical Prophylaxis ordered - Choose All That Apply Any of the Below Risk Factors Present?: Yes Each Factor Represents 1 point: Abnormal pulmonary function (COPD), Swollen legs (current) Other Risk Factors: Yes Each Risk Factor Represents 3 Points: Age 75 years or older, History of DVT/PE Other congenital or acquired thrombophilia - If yes, enter type in comment: No Thrombosis Risk Factor Assessment Total Risk Factor Score: 8 Thrombosis Risk Factor Assessment Level: High Risk Assessment and Plan Assessment: Status post fall Left ankle contusion Left elbow contusion Elevated CPK Prolonged down time Anemia, macrocytic Hyponatremia CKD3 Chronic small vessel ischemia and cerebral atrophy NPH Degenerative disc disease History of bronchogenic carcinoma History of falls with prior rib fractures IVF hydration Follow CPK Consult neurology regarding NPH Consult PT and OT Consult social work and case management for possible rehab placement Monitor renal function, appears to be at baseline XRay left elbow and left ankle Pain control GI and DVT prophylaxis Discontinue Ambien Continue other home medications Check iron, b12, folate Patient seen and examined covering for Dr. Junior
--- NOTE | 2017-08-16 14:43 | XR ---
EXAMINATION TYPE: XR ankle complete LT DATE OF EXAM: 08/16/2017 COMPARISON: NONE HISTORY: Ankle pain TECHNIQUE: 3 views FINDINGS: Ankle mortise is anatomic. I see no fracture nor dislocation. IMPRESSION: Negative left ankle exam.
--- NOTE | 2017-08-16 14:51 | XR ---
EXAMINATION TYPE: XR elbow complete LT DATE OF EXAM: 08/16/2017 COMPARISON: NONE HISTORY: Pain TECHNIQUE: 3 views FINDINGS: I see no fracture nor dislocation. There is no sign of elbow joint effusion. Joint spaces a re fairly normal. IMPRESSION: Negative left elbow exam.
--- NOTE | 2017-08-16 15:45 | P.CNNES ---
History of Present Illness Consult date: 08/16/17 Reason for Consult: Patient with fall and possible NPH on CT Scan brain. History of Present Illness: This patient is a 81-year-old right-handed white male was brought into the emergency room yesterday after sustaining a fall at his home. Patient usually follows with Dr. Junior is his primary care physician. He was seen in the medical clinic about a month ago and had a regular routine exam. Patient states he was at home and was getting up out of his couch and started up and lost his balance. He apparently fell forwards and struck the end of the coffee table on his way down. He was unable to get up after this fall and is stated that he was very weak. Patient did not attempt to get up and instead decided to just wait on the floor until he could get some help. Patient states he was on the floor for several hours up to 5 hours in duration before he could inform his neighbor that he was needing help. Apparently he was able to scream out in the neighbor heard him and came to assist him. EMS was called to the home and he was transported by EMS to the emergency room for further evaluation. He was seen in the ER by physician nutrition assistant Fahad Recinos. He was sent for several x -ray studies due to his recent fall. He had a computed tomography scan of the brain and cervical spine which revealed some cerebral atrophy and chronic small vessel ischemic changes. There was some degree of normal pressure-type hydrocephalus findings. CT of the cervical spine reveals spondylitic changes in the mid and lower cervical spine. No acute fracture was noted and there was no significant change compared to a previous study done in 2014. The patient states he does not suffer from headaches. He does not have evidence of urinary incontinence or gait ataxia. He lives alone in his own home and is able to get up and ambulate short distances. For longer distance he does have a power wheelchair that he is able to use outside. Patient's CAT scan of the brain was reviewed and reveals only mild to moderate degree of ventriculomegaly. There was some degree of cortical atrophy. There is no evidence of any obstructive hydrocephalus. Patient states he has been doing fine since admission to the hospital. He has had no further spells of near passing out or falls. He is being evaluated for possible subacute rehab placement. Patient apparently does have a history of underlying lung cancer. He is followed with his thread winder for this condition. He is completed 5 radiation treatments for this condition in the past. Patient states he does ambulate at home fairly easily. He had a similar fall about a month ago again just due to weakness. His recent fall was possibly caused by him losing his balance soon after getting up from his couch. Patient denies any previous history of head injury or seizures in the past. He apparently has been living independently in his own home. He does get help from his neighbors of any needed. On admission through the ER he did have elevated CPK level secondary to his fall. The levels have been slowly decreasing. He denies any headache at this time. Once again his CAT scan films were reviewed with the patient in detail. There is only mild degree of ventriculomegaly noted. We would recommend a follow-up computed tomography scan of the brain to be done in the outpatient setting in 2- 3 weeks for comparison. The patient is now admitted and neurology has been consulted for further evaluation and recommendations. Review of Systems Constitutional: Denies chills, Denies fever Eyes: denies blurred vision, denies pain Ears, nose, mouth and throat: Denies headache, Denies sore throat Cardiovascular: Denies chest pain, Denies shortness of breath Respiratory: Denies cough Gastrointestinal: Denies abdominal pain, Denies diarrhea, Denies nausea, Denies vomiting Musculoskeletal: Denies myalgias Integumentary: Denies pruritus, Denies rash Neurological: Reports balance difficulties, Reports head injury, Reports syncope , Denies numbness, Denies weakness Psychiatric: Denies anxiety, Denies depression Endocrine: Denies fatigue, Denies weight change Past Medical History Past Medical History: Cancer, Heart Failure, COPD, Deep Vein Thrombosis (DVT), GERD/Reflux, Hyperlipidemia, Hypertension, Pneumonia, Prostate Disorder Additional Past Medical History / Comment(s): 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 History of Any Multi-Drug Resistant Organisms: None Reported Past Surgical History: Appendectomy, Tonsillectomy Additional Past Surgical History / Comment(s): AAA, NAYAN ROTATOR CUFF,NAYAN THUMB SX, LARYNGOSCOPY FOR HORSENESS,LT VOCAL CORD WEAKNESS.NEEDLE ASPIRATION LT LUNG MASS WAS POSITIVE FOR CANCER -PT STATED HE COMPLETED 5 RADIATION TREATMENTS. Past Anesthesia/Blood Transfusion Reactions: No Reported Reaction Additional Past Anesthesia/Blood Transfusion Reaction / Comment(s): blood transfusion Smoking Status: Former smoker - Past Family History Father Family Medical History: Coronary Artery Disease (CAD) Mother Additional Family Medical History / Comment(s): ANEMIA Medications and Allergies Home Medications Medication Instructions Recorded Confirmed Type Ranitidine HCl [Zantac] 150 mg PO BID 12/28/13 08/15/17 History Atenolol [Tenormin] 25 mg PO DAILY 09/07/16 08/15/17 History HYDROcodone/APAP 7.5-325MG [[place] 1 tab PO Q4H PRN 08/15/17 08/15/17 History 7.5-325] Allergies Allergy/AdvReac Type Severity Reaction Status Date / Time ceftriaxone sodium Allergy Itching Verified 08/15/17 20:31 [From Rocephin] Iodinated Contrast- Oral and Allergy Anaphylaxis Verified 08/15/17 20:31 IV Dye [Iodinated Contrast Media - IV Dye] levofloxacin Allergy Itching Verified 08/15/17 20:31 Physical Examination - Vital Signs Vital Signs: Vital Signs Temp Pulse Pulse Resp BP BP Pulse Ox 08/16/17 08:00 97.3 F L 70 18 150/68 100 08/16/17 03:45 96.2 F L 69 18 168/77 100 08/16/17 03:26 16 08/15/17 23:59 16 08/15/17 22:25 95 08/15/17 20:00 99 F 88 16 169/79 89 L 08/15/17 17:38 87 18 174/79 94 L Intake and Output 08/16/17 08/16/17 08/16/17 06:59 14:59 22:59 Intake Total 250 236 Output Total 350 Balance -100 236 Intake: Oral 250 236 Output: Urine 350 Other: Voiding Method Urinal Urinal Weight 43.5 kg Patient Weight 08/17/17 06:59 Weight 43.5 kg - Constitutional General appearance: average body habitus, cooperative - EENT EENT: PERRL, mucous membranes moist - Respiratory Respiratory: lungs clear, normal breath sounds - Cardiovascular Cardiovascular: regular rate, normal S1, normal S2 Extremities: no peripheral edema bilaterally - Gastrointestinal Gastrointestinal: normoactive bowel sounds - Integumentary Integumentary: normal - Neurologic Cranial nerve examination: PERRL, EOMI, VFF, V1/V2/V3 grossly intact, face symmetric, intact shoulder shrug, intact gag reflex, intact cough reflex, intact corneal reflex, normal palatal elevation Speech examination: intact Sensorimotor examination: intact Motor examination - right side: 4/5: biceps, triceps, wrist flexion, wrist extension, content developer, hip flexors, knee extensors, dorsiflexion, toe extension (EHL) , plantarflexion Motor examination - left side: 4/5: biceps, triceps, wrist flexion, wrist extension, content developer, hip flexors, knee extensors, dorsiflexion, toe extension (EHL) , plantarflexion Detailed sensory examination: intact Reflex and gait examination: intact Reflexes: 1+: ankle, bicep, knee, tricep - Musculoskeletal Musculoskeletal: no pain - Psychiatric Psychiatric: mood/affect appropriate, cooperative Results - Laboratory Findings CBC and BMP: 08/16/17 06:49 08/16/17 06:49 Abnormal Lab Findings: Abnormal Labs 08/15/17 08/15/17 08/15/17 14:00 14:00 14:00 RBC 3.21 L Hgb 10.0 L Hct 33.2 L MCV 103.4 H MCHC 30.1 L RDW 16.0 H Lymphocytes # 0.5 L APTT Sodium Creatinine 1.50 H Glucose 108 H Creatine Kinase Total Creatine Kinase 416 H CK-MB (CK-2) 2.5 H* Total Protein 6.2 L Albumin Urine Protein Urine Ketones Urine Blood Urine Mucus 08/15/17 08/15/17 08/16/17 14:00 14:00 06:49 RBC 2.98 L Hgb 9.5 L Hct 31.5 L MCV 105.7 H MCHC 30.0 L RDW 16.1 H Lymphocytes # 0.9 L APTT 21.3 L Sodium Creatinine Glucose Creatine Kinase Total Creatine Kinase CK-MB (CK-2) Total Protein Albumin Urine Protein Trace H Urine Ketones Trace H Urine Blood Small H Urine Mucus Rare H 08/16/17 06:49 RBC Hgb Hct MCV MCHC RDW Lymphocytes # APTT Sodium 136 L Creatinine 1.43 H Glucose 69 L Creatine Kinase 650 H Total Creatine Kinase CK-MB (CK-2) Total Protein 5.7 L Albumin 3.1 L Urine Protein Urine Ketones Urine Blood Urine Mucus Assessment and Plan (1) Fall Current Visit: Yes Status: Acute Code(s): W19.XXXA - UNSPECIFIED FALL, INITIAL ENCOUNTER SNOMED Code(s): 6677499 (2) Near syncope Current Visit: Yes Status: Acute Code(s): R55 - SYNCOPE AND COLLAPSE SNOMED Code(s): 762199454 (3) Cerebral ventriculomegaly Current Visit: Yes Status: Acute Code(s): G93.89 - OTHER SPECIFIED DISORDERS OF BRAIN SNOMED Code(s): 131263604 (4) Rhabdomyolysis Current Visit: Yes Status: Acute Code(s): M62.82 - RHABDOMYOLYSIS SNOMED Code(s): 876582077 Plan: This patient is a 81-year-old male who was admitted to hospital after sustaining a fall at his home. Apparently he was at home and was getting up off of his couch when he lost his balance and fell. During the fall he did strike his head on the coffee table. He was unable to get up from the floor for several hours. His neighbor heard him and was able to come to assist him several hours later. EMS was called to the home and he was transported by EMS to the emergency room for further evaluation yesterday evening. He underwent full series of trauma x-rays. His computed tomography scan of the brain and cervical spine are as noted above. CAT scan of the brain was reviewed and the films reveals some degree of mild to moderate ventriculomegaly. There is no evidence for obstructive hydrocephalus. Patient does not have classical findings for NPH at this time. We have recommended that he have a repeat computed tomography scan in 2-3 weeks to see if there is any significant change. We will obtain routine EEG for further evaluation. He has a history of underlying lung cancer and is being followed by his thread winder for this condition. His overall prognosis at this time remains guarded. We will continue close neurological follow-up for this patient during this admission. Time with Patient: Greater than 30
[2017-08-16] MEDS: HEPARIN SODIUM,PORCINE 5,000 UNIT/ML 1 ML VIAL SQ SCH (17:51)
[2017-08-16] MEDS: SODIUM CHLORIDE 0.9% 1,000 ML IV SCH (17:52)
[2017-08-16] MEDS: ATORVASTATIN 10 MG TAB PO SCH (20:06)
[2017-08-16] MEDS: traZODone HCL 50 MG TAB PO SCH (20:07)
[2017-08-17] MEDS: HEPARIN SODIUM,PORCINE 5,000 UNIT/ML 1 ML VIAL SQ SCH ×3 (01:02→18:31)
[2017-08-17] MEDS: HYDROcodone/APAP 7.5-325MG 1 EACH TAB PO PRN ×3 (06:55→17:48)
[2017-08-17 07:07] LABS: Anisocytosis Slight; HCT 30.4 % (39.0-53.0); HGB 9.3 gm/dL (13.0-17.5); Hypochromasia Moderate; MCH 32.6 pg (25.0-35.0); MCHC 30.6 g/dL (31.0-37.0); MCV 106.7 fL (80.0-100.0); Macrocytosis Moderate; Mean Platelet Volume 8.5; Platelet Count 179 k/uL (150-450); RBC 2.85 m/uL (4.30-5.90); RDW 16.1 % (11.5-15.5)
[2017-08-17 07:32] LABS: Calcium 8.8 mg/dL (8.4-10.2); Potassium 4.1 mmol/L (3.5-5.1)
[2017-08-17] MEDS: ATENOLOL 25 MG TAB PO SCH (09:50)
[2017-08-17] MEDS: FUROSEMIDE 40 MG TAB PO SCH (09:51)
[2017-08-17] MEDS: FAMOTIDINE 20 MG TAB PO SCH (09:51)
[2017-08-17] MEDS: ASPIRIN 325 MG TAB PO SCH (09:52)
[2017-08-17] MEDS ORDERED: IPRATROPIUM-ALBUTEROL 3 ML NEB INHALATION PRN ×2 (15:01→15:24)
--- NOTE | 2017-08-17 15:19 | EEG ---
ELECTROENCEPHALOGRAM REPORT DATE OF EE08/17/2017. REFERRING PHYSICIAN: Dr. Jay Tanner. INTERPRETING PHYSICIAN: Dr. Lisbet Gonzalez M.D. ELECTROENCEPHALOGRAPHIC EXAMINATION REPORT: INDICATION FOR EXAMINATION: This patient is an 81-year-old male being evaluated for recent fall and syncope. Patient also with CAT scan findings of ventriculomegaly. AGE: [age]. EEG FINDINGS: A routine 21 channel awake digital EEG recording was accomplished utilizing the 10-20 international system with bipolar and referential montages. The background activity in the most alert resting state consists of a low to medium amplitude, fairly well developed and well sustained 6-7 Hz activity over the posterior head regions. This posterior rhythm attenuates to eye opening. There is a small amount of low amplitude 18-20 Hz beta activity seen maximally over the anterior head regions. Muscle and movement artifact was observed on a few occasions during the tracing. Hyperventilation was not performed. Photic stimulation at flash frequencies of 2-30 Hz produced a minimal occipital driving response. No epileptiform discharges were seen. Towards the mid and lateral portion of the tracing the patient does drift into spontaneous drowsiness. IMPRESSION: This EEG is moderately abnormal in a diffuse fashion due to slowing of the EEG background. The EEG failed to reveal any focal, lateralized, or epileptiform abnormalities. Clinical correlation is recommended. MMODL / IJN: [id number] /
[2017-08-17] MEDS: IPRATROPIUM-ALBUTEROL 3 ML NEB INHALATION SCH ×2 (15:29→19:36)
--- NOTE | 2017-08-17 16:24 | HP ---
HISTORY AND PHYSICAL DATE OF ADMISSION: 08/17/17 This patient was admitted in my absence. CHIEF COMPLAINT: History of carcinoma of the lung and a fall with head injury, abrasion in the right arm. HISTORY OF PRESENT ILLNESS: This gentleman presented after he apparently fell out of bed at home and hit his head. There was no loss of consciousness or seizure. He has a little abrasion to the right lateral lower arm. The remainder of his history is obtained by the covering physician. REVIEW OF SYSTEMS: Past medical history, family history, personal and social history are all otherwise obtained in initial evaluation and are unchanged. PHYSICAL EXAM: He is slightly pale and chronically ill in appearance. Lymph nodes not enlarged. Head, ears, eyes, nose, mouth, and throat were normal. NECK: Supple. Chest demonstrated poor breath sounds throughout due to his emphysema. He is a little bit tender in the left lateral chest wall area. He has primary disease in that area. Cardiac exam is normal. The abdomen is flat, soft. Extremities are normal except the dressing on the right forearm. Neurological is intact. IMPRESSION: 1. Fall with closed head injury. 2. Abrasion in the right arm. 3. Chronic obstructive pulmonary disease. 4. Terminal carcinoma of the lung. PLAN: 1. Bed rest. 2. IV fluids. 3. Rule out intracranial process. 4. Dressing changes in right arm. MMODL / IJN: [id number] /
--- NOTE | 2017-08-17 16:35 | P.PN ---
Subjective Progress Note Date: 08/17/17 This patient is a 81-year-old right-handed white male who was seen in neurology consultation yesterday for evaluation of fall and possible NPH. Patient had an episode at home in which she collapsed and was found on the ground unable to get up. He was brought into the emergency room for further evaluation as he had struck the side of his head during the fall. He underwent a computed tomography scan of the cervical spine which revealed spondylitic changes in the lower cervical region with no acute fracture. CAT scan of the brain was also obtained and revealed mild to moderate degree of ventriculomegaly. There was no evidence for obstructive hydrocephalus. Patient was subsequent admitted to the observation unit for close monitoring. Patient is doing well today. He has had no further passing out spells. He was able to complete a routine EEG today which is reviewed and is moderately slow with no evidence of any epileptiform discharges. Patient is feeling better today overall and denies any headache symptoms. As noted yesterday he did not manifest any classical symptoms for NPH. He is been up and ambulating in the room without any difficulties today. He was able to handle it with the use of his walker today. He is complaining of some left-sided rib pain. Would recommend x-rays as he did fall onto his left side at home. Would rule out possible rib fracture. He is being considered for possible inpatient rehab and inpatient admission. We' re waiting his insurance approval for admission. We did review his EEG as noted above and it was negative for any evidence of epileptic discharge. He may require inpatient rehab placement due to his generalized weakness. We will continue close neurological follow-up with the patient during this admission. Objective - Vital Signs Vital signs: Vital Signs Temp 97.5 F L 08/17/17 10:23 Pulse 64 08/17/17 10:23 Resp 18 08/17/17 10:23 BP 142/67 08/17/17 10:23 Pulse Ox 98 08/17/17 10:23 Intake & Output 08/16/17 08/17/17 08/17/17 18:59 06:59 18:59 Intake Total 236 200 Output Total 350 Balance 236 -350 200 Weight 43.5 kg 43.5 kg 43.5 kg Intake: Oral 236 200 Output: Urine 350 Other: Voiding Method Urinal Urinal Urinal # Voids 3 # Bowel Movements 1 1 1 - Exam Physical examination: PHYSICAL EXAMINATION: Patient is resting comfortably in bed. VITAL SIGNS: Blood pressure is [142/67]. Heart rate is [64]. Respiration is [18] . Temperature is [97.5]. HEENT: Head is atraumatic, neck is supple, there were no carotid bruits. CHEST: Lungs are clear to auscultation and percussion. CARDIAC: S1, S2 normal rate and rhythm. There is no murmur. ABDOMEN: Soft and nontender. Bowel sounds are present. EXTREMITIES: There is no pedal edema. Peripheral pulses are present. Neurological examination: Patient has a nonfocal neurological examination today. Patient has been up and ambulating with the use of his walker today. - Labs CBC & Chem 7: 08/17/17 06:37 08/17/17 06:37 Labs: Abnormal Lab Results - Last 24 Hours (Table) 08/17/17 08/17/17 Range/Units 06:37 06:37 RBC 2.85 L (4.30-5.90) m/uL Hgb 9.3 L (13.0-17.5) gm/dL Hct 30.4 L (39.0-53.0) % MCV 106.7 H (80.0-100.0) fL MCHC 30.6 L (31.0-37.0) g/dL RDW 16.1 H (11.5-15.5) % BUN 22 H (9-20) mg/dL Creatinine 1.47 H (0.66-1.25) mg/dL Creatine Kinase 315 H (55-170) U/L Assessment and Plan (1) Fall Current Visit: Yes Status: Acute Code(s): W19.XXXA - UNSPECIFIED FALL, INITIAL ENCOUNTER SNOMED Code(s): 0750128 (2) Near syncope Current Visit: Yes Status: Acute Code(s): R55 - SYNCOPE AND COLLAPSE SNOMED Code(s): 520519008 (3) Cerebral ventriculomegaly Current Visit: Yes Status: Acute Code(s): G93.89 - OTHER SPECIFIED DISORDERS OF BRAIN SNOMED Code(s): 730384033 (4) Rhabdomyolysis Current Visit: Yes Status: Acute Code(s): M62.82 - RHABDOMYOLYSIS SNOMED Code(s): 154209192 Plan: This patient is a 81-year-old male who was seen in neurology consultation yesterday for evaluation of fall and possible NPH. He underwent extensive evaluation yesterday including computed tomography scan of the brain and cervical spine. Results are as noted above. Review of the actual CAT scan of the brain reveals mild to moderate ventriculomegaly. No evidence for obstructive hydrocephalus. Patient did not have classical triad for NPH yesterday as well as today. He underwent a routine EEG due to the incidence of fall and possible unresponsiveness. EEG is moderately slow with no evidence of any epileptiform discharges. We reviewed the results of the EEG today with the patient in detail. The patient states he has been up and ambulate with the use of his walker today. He is complaining of some left-sided chest wall pain following his recent fall. Would consider rib x-rays to rule out rib fracture. He also has some hip pain. Patient should increase activity as he tolerates. He is being considered for possible inpatient rehab placement. We will continue close neurological follow-up with the patient. His overall prognosis at this time remains guarded.
--- NOTE | 2017-08-17 16:49 | PN ---
PROGRESS NOTE DATE OF SERVICE: 08/17/2017 CHIEF COMPLAINT: Fall with head injury and abrasion right arm. HISTORY OF PRESENT ILLNESS: This gentleman is fairly comfortable but he is complaining a lot of left lateral chest wall pain. He does have carcinoma involving the chest wall in that area. He also fell. REVIEW OF SYSTEMS: He has had no hemoptysis, fever and chills, cough, etc. PHYSICAL EXAM: Chest demonstrates poor breath sounds throughout due to emphysema. He is tender in the left lateral chest wall. Cardiac exam is normal. Abdomen is soft, nontender. IMPRESSION: 1. Fall with mild closed head injury and abrasion of the right forearm. 2. Left lateral chest pain. 3. Carcinoma of the lung. PLAN: Will do a chest x-ray left rib detail, but it is not likely to change plan for his treatment and will continue to keep him comfortable. We may have to send him to Oncology for discharge planning. MMODL / IJN: [id number] /
[2017-08-17] MEDS: BUDESONIDE 0.5 MG/2 ML NEBU INHALATION SCH (19:36)
--- NOTE | 2017-08-17 19:37 | XR ---
EXAMINATION TYPE: XR chest 2V DATE OF EXAM: 08/17/2017 COMPARISON: 07/02/2016 HISTORY: Short of breath and rib pain TECHNIQUE: Frontal and lateral views of the chest are obtained. FINDINGS: There is patchy pneumonic consolidation in the left mid and lower lung carvalho. There is li near density in the right midlung. There is some blunting of costophrenic angles. There is no heart f ailure. Thoracic aorta is atheromatous. Bony thorax appears intact. IMPRESSION: Increasing pneumonic consolidation in the left lung compared to last exam and consistent with recurrent tumor or pneumonia. No heart failure.
--- NOTE | 2017-08-17 19:38 | XR ---
EXAMINATION TYPE: XR ribs LT DATE OF EXAM: 08/17/2017 COMPARISON: NONE HISTORY: Short of breath and rib pain TECHNIQUE: 4 views FINDINGS: There is a nondisplaced fracture left posterior fifth and sixth ribs. There is no pneumotho rax. There is patchy pneumonic consolidation in the left mid and lower lung field. Thoracic aorta is atheromatous. IMPRESSION: Acute left rib fractures. Patchy left-sided pneumonic consolidation.
[2017-08-17] MEDS: traZODone HCL 50 MG TAB PO SCH (20:44)
[2017-08-17] MEDS: SODIUM CHLORIDE 0.9% 1,000 ML IV SCH (20:44)
[2017-08-17] MEDS: ATORVASTATIN 10 MG TAB PO SCH (20:44)
[2017-08-18] MEDS: HEPARIN SODIUM,PORCINE 5,000 UNIT/ML 1 ML VIAL SQ SCH ×4 (03:05→23:33)
[2017-08-18] MEDS: SODIUM CHLORIDE 0.9% 1,000 ML IV SCH ×2 (06:24→22:49)
[2017-08-18] MEDS: BUDESONIDE 0.5 MG/2 ML NEBU INHALATION SCH ×2 (07:31→19:31)
[2017-08-18] MEDS: IPRATROPIUM-ALBUTEROL 3 ML NEB INHALATION SCH ×4 (07:31→19:31)
[2017-08-18] MEDS: ASPIRIN 325 MG TAB PO SCH (07:57)
[2017-08-18] MEDS: ATENOLOL 25 MG TAB PO SCH (07:57)
[2017-08-18] MEDS: FAMOTIDINE 20 MG TAB PO SCH (07:57)
[2017-08-18] MEDS: FUROSEMIDE 40 MG TAB PO SCH (07:57)
[2017-08-18] MEDS: HYDROcodone/APAP 7.5-325MG 1 EACH TAB PO PRN ×3 (10:39→22:44)
--- NOTE | 2017-08-18 20:46 | P.PN ---
Subjective Progress Note Date: 08/18/17 This patient is a 81-year-old right-handed white male who was seen in neurology consultation yesterday for evaluation of fall and possible NPH. Patient had an episode at home in which she collapsed and was found on the ground unable to get up. He was brought into the emergency room for further evaluation as he had struck the side of his head during the fall. He underwent a computed tomography scan of the cervical spine which revealed spondylitic changes in the lower cervical region with no acute fracture. CAT scan of the brain was also obtained and revealed mild to moderate degree of ventriculomegaly. There was no evidence for obstructive hydrocephalus. Patient was subsequent admitted to the observation unit for close monitoring. Patient is doing well today. He has had no further passing out spells. He was able to complete a routine EEG today which is reviewed and is moderately slow with no evidence of any epileptiform discharges. Patient is feeling better today overall and denies any headache symptoms. As noted yesterday he did not manifest any classical symptoms for NPH. He is been up and ambulating in the room without any difficulties today. He was able to handle it with the use of his walker today. He is complaining of some left-sided rib pain. Would recommend x-rays as he did fall onto his left side at home. Would rule out possible rib fracture. Patient did have rib x-rays done today which confirm evidence of left-sided rib fractures at the fifth and sixth ribs. He is being considered for possible inpatient rehab and inpatient admission. We did review his EEG as noted above and it was negative for any evidence of epileptic discharge. He may require inpatient rehab placement due to his generalized weakness. We will continue close neurological follow-up with the patient during this admission. Objective - Vital Signs Vital signs: Vital Signs Temp 97.3 F L 08/18/17 15:29 Pulse 67 08/18/17 15:29 Resp 18 08/18/17 15:29 BP 117/64 08/18/17 15:29 Pulse Ox 98 08/18/17 15:29 Intake & Output 08/17/17 08/18/17 08/18/17 18:59 06:59 18:59 Intake Total 600 300 275 Output Total 100 Balance 500 300 275 Weight 43.5 kg Intake: Oral 400 300 275 Other 200 Output: Urine 100 Other: Voiding Method Urinal Urinal Toilet Bedside Commode Urinal # Voids 3 2 # Bowel Movements 1 1 - Exam Physical examination: PHYSICAL EXAMINATION: Patient is resting comfortably in bed. VITAL SIGNS: Blood pressure is [117/64]. Heart rate is [67]. Respiration is [18] . Temperature is [97.3]. HEENT: Head is atraumatic, neck is supple, there were no carotid bruits. CHEST: Lungs are clear to auscultation and percussion. CARDIAC: S1, S2 normal rate and rhythm. There is no murmur. ABDOMEN: Soft and nontender. Bowel sounds are present. EXTREMITIES: There is no pedal edema. Peripheral pulses are present. Neurological examination: Patient has a nonfocal neurological examination today. Patient has been up and ambulating with the use of his walker today. - Labs CBC & Chem 7: 08/17/17 06:37 08/17/17 06:37 Labs: Abnormal Lab Results - Last 24 Hours (Table) 08/18/17 Range/Units 07:12 Creatine Kinase 181 H (55-170) U/L Assessment and Plan (1) Fall Current Visit: Yes Status: Acute Code(s): W19.XXXA - UNSPECIFIED FALL, INITIAL ENCOUNTER SNOMED Code(s): 2997680 (2) Near syncope Current Visit: Yes Status: Acute Code(s): R55 - SYNCOPE AND COLLAPSE SNOMED Code(s): 210619959 (3) Cerebral ventriculomegaly Current Visit: Yes Status: Acute Code(s): G93.89 - OTHER SPECIFIED DISORDERS OF BRAIN SNOMED Code(s): 525191654 (4) Rhabdomyolysis Current Visit: Yes Status: Acute Code(s): M62.82 - RHABDOMYOLYSIS SNOMED Code(s): 102213554 Plan: This patient is a 81-year-old male who is being evaluated for weakness and recent fall. He underwent a routine EEG which failed to reveal any evidence of epileptiform discharges. He was sent for a chest x-ray yesterday which reveals left-sided rib fracture at the fifth and sixth ribs on the left. He is being closely monitored for this condition. No other new changes in his overall neurological status. He has been up in a bleeding with the use of a walker. His overall prognosis at this time remains guarded. He may be a candidate for inpatient rehab placement. We will continue to monitor his progress closely during this admission.
[2017-08-18] MEDS: ATORVASTATIN 10 MG TAB PO SCH (22:45)
[2017-08-18] MEDS: ZOLPIDEM 5 MG TAB PO PRN (22:45)
[2017-08-18] MEDS: traZODone HCL 50 MG TAB PO SCH (22:45)
[2017-08-19] MEDS: FUROSEMIDE 40 MG TAB PO SCH (07:37)
[2017-08-19] MEDS: HEPARIN SODIUM,PORCINE 5,000 UNIT/ML 1 ML VIAL SQ SCH ×3 (07:37→23:17)
[2017-08-19] MEDS: FAMOTIDINE 20 MG TAB PO SCH (07:37)
[2017-08-19] MEDS: ATENOLOL 25 MG TAB PO SCH (07:37)
[2017-08-19] MEDS: ASPIRIN 325 MG TAB PO SCH (07:37)
[2017-08-19] MEDS: SODIUM CHLORIDE 0.9% 1,000 ML IV SCH ×2 (07:38→20:47)
[2017-08-19] MEDS: BUDESONIDE 0.5 MG/2 ML NEBU INHALATION SCH ×2 (08:31→20:14)
[2017-08-19] MEDS: IPRATROPIUM-ALBUTEROL 3 ML NEB INHALATION SCH ×4 (08:31→20:14)
[2017-08-19] MEDS: HYDROcodone/APAP 7.5-325MG 1 EACH TAB PO PRN ×2 (11:16→20:47)
--- NOTE | 2017-08-19 20:18 | PN ---
PROGRESS NOTE DATE OF SERVICE: 08/18/2017 CHIEF COMPLAINT: Fall with abrasion on the right forearm and closed head injury. HISTORY OF PRESENT ILLNESS: This gentleman is doing fairly well, but he is apparently having trouble with confusion at night. He has had no fever, chills. He has had no headaches. He has had no focal neurologic deficits. He has been complaining of pain in the left side of the chest where his neoplasm is, but his x-ray shows two rib fractures there as well. PHYSICAL EXAMINATION: He looks pale and chronically ill. Breath sounds are diminished bilaterally. He has pain in the left side of the chest when he is breathing and there is tenderness. Cardiac exam is normal. Abdomen is soft, nontender. IMPRESSION: 1. Metastatic carcinoma of the lung. 2. Fall. 3. Closed head injury. 4. Abrasion on the right forearm. 5. Two left-sided rib fractures. PLAN: Continue with current course of therapy and treatment. Will have to consider a discharge plan. MMODL / IJN: [id number] /
--- NOTE | 2017-08-19 20:19 | P.PN ---
Subjective Progress Note Date: 08/19/17 This patient is a 81-year-old right-handed white male who was seen in neurology consultation yesterday for evaluation of fall and possible NPH. Patient had an episode at home in which she collapsed and was found on the ground unable to get up. He was brought into the emergency room for further evaluation as he had struck the side of his head during the fall. He underwent a computed tomography scan of the cervical spine which revealed spondylitic changes in the lower cervical region with no acute fracture. CAT scan of the brain was also obtained and revealed mild to moderate degree of ventriculomegaly. There was no evidence for obstructive hydrocephalus. Patient was subsequent admitted to the observation unit for close monitoring. Patient is doing well today. He has had no further passing out spells. He was able to complete a routine EEG today which is reviewed and is moderately slow with no evidence of any epileptiform discharges. Patient is feeling better today overall and denies any headache symptoms. As noted yesterday he did not manifest any classical symptoms for NPH. He is been up and ambulating in the room without any difficulties today. He was able to handle it with the use of his walker today. He is complaining of some left-sided rib pain. Would recommend x-rays as he did fall onto his left side at home. Would rule out possible rib fracture. Patient did have rib x-rays done today which confirm evidence of left-sided rib fractures at the fifth and sixth ribs. He is being considered for possible inpatient rehab and inpatient admission. We did review his EEG as noted above and it was negative for any evidence of epileptic discharge. He may require inpatient rehab placement due to his generalized weakness. Patient reluctant to go to rehab stating he would like to go home. We will await further recommendations from Dr. Junior tomorrow regarding discharge planning. We will continue close neurological follow-up with the patient during this admission. Objective - Vital Signs Vital signs: Vital Signs Temp 97.4 F L 08/19/17 15:03 Pulse 84 08/19/17 16:22 Resp 18 08/19/17 15:03 BP 112/76 08/19/17 15:03 Pulse Ox 96 08/19/17 15:03 Intake & Output 08/19/17 08/19/17 08/20/17 06:59 18:59 06:59 Weight 43.5 kg Other: Voiding Method Toilet Toilet Bedside Commode Bedside Commode Urinal Urinal Incontinent Incontinent # Voids 3 1 # Bowel Movements 0 - Exam Physical examination: PHYSICAL EXAMINATION: Patient is resting comfortably in bed. VITAL SIGNS: Blood pressure is [112/77]. Heart rate is [77]. Respiration is [18] . Temperature is [97.4]. HEENT: Head is atraumatic, neck is supple, there were no carotid bruits. CHEST: Lungs are clear to auscultation and percussion. CARDIAC: S1, S2 normal rate and rhythm. There is no murmur. ABDOMEN: Soft and nontender. Bowel sounds are present. EXTREMITIES: There is no pedal edema. Peripheral pulses are present. Neurological examination: Patient has a nonfocal neurological examination today. Patient has been up and ambulating with the use of his walker today. - Labs CBC & Chem 7: 08/17/17 06:37 08/17/17 06:37 Labs: Abnormal Lab Results - Last 24 Hours (Table) 08/19/17 Range/Units 08:43 Creatine Kinase 361 H (55-170) U/L Assessment and Plan (1) Fall Current Visit: Yes Status: Acute Code(s): W19.XXXA - UNSPECIFIED FALL, INITIAL ENCOUNTER SNOMED Code(s): 8899508 (2) Near syncope Current Visit: Yes Status: Acute Code(s): R55 - SYNCOPE AND COLLAPSE SNOMED Code(s): 294967198 (3) Cerebral ventriculomegaly Current Visit: Yes Status: Acute Code(s): G93.89 - OTHER SPECIFIED DISORDERS OF BRAIN SNOMED Code(s): 815594603 (4) Rhabdomyolysis Current Visit: Yes Status: Acute Code(s): M62.82 - RHABDOMYOLYSIS SNOMED Code(s): 867388902 Plan: This patient is a pleasant 81-year-old male who recently sustained a fall and multiple abrasions to his right arm. Patient also complained of left-sided rib pain and underwent x-ray of the ribs which reveals him to have suffered 2 rib fractures. He is continuing to have some discomfort on his left rib cage. He has been up and and blading but still remains very weak. We have recommended that he consider inpatient rehab placement for subacute rehabilitation. He is reluctant to have this. We will await further recommendations from Dr. Junior. Neurologically he has no evidence of any acute stroke findings or evidence for worsening NPH. We will continue to follow his progress closely during this admission. His overall prognosis at this time remains guarded.
--- NOTE | 2017-08-19 20:24 | PN ---
PROGRESS NOTE DATE OF SERVICE: 08/19/2017. CHIEF COMPLAINT: Metastatic carcinoma of the lung. HISTORY OF PRESENT ILLNESS: This gentleman is about the same. He is still having generalized weakness and left- sided chest pain. PHYSICAL EXAMINATION: Breath sounds very poor throughout. Cardiac exam is normal. The abdomen is soft, nontender. IMPRESSION: 1. Metastatic carcinoma of the lung. 2. Chronic obstructive pulmonary disease. 3. Two left-sided rib fractures. 4. Closed head injury. 5. Abrasion on the right forearm. 6. Nighttime delirium. PLAN: Continue current program and we will try to send him home, if that is his wish. MMODL / IJN: [id number] /
[2017-08-19] MEDS: guaiFENesin SYRUP 100MG/5ML 200 MG/10 ML CUP PO PRN (20:46)
[2017-08-19] MEDS: traZODone HCL 50 MG TAB PO SCH (20:47)
[2017-08-19] MEDS: ATORVASTATIN 10 MG TAB PO SCH (20:47)
[2017-08-20] MEDS: HYDROcodone/APAP 7.5-325MG 1 EACH TAB PO PRN ×4 (00:40→21:45)
[2017-08-20] MEDS: ZOLPIDEM 5 MG TAB PO PRN ×2 (00:40→21:45)
[2017-08-20] MEDS: BUDESONIDE 0.5 MG/2 ML NEBU INHALATION SCH ×2 (07:16→19:18)
[2017-08-20] MEDS: IPRATROPIUM-ALBUTEROL 3 ML NEB INHALATION SCH ×4 (07:17→19:18)
[2017-08-20] MEDS: FAMOTIDINE 20 MG TAB PO SCH (07:44)
[2017-08-20] MEDS: HEPARIN SODIUM,PORCINE 5,000 UNIT/ML 1 ML VIAL SQ SCH ×3 (07:44→23:12)
[2017-08-20] MEDS: ATENOLOL 25 MG TAB PO SCH (07:44)
[2017-08-20] MEDS: ASPIRIN 325 MG TAB PO SCH (07:44)
[2017-08-20] MEDS: FUROSEMIDE 40 MG TAB PO SCH (07:45)
[2017-08-20] MEDS: SODIUM CHLORIDE 0.9% 1,000 ML IV SCH (11:17)
[2017-08-20] MEDS: guaiFENesin SYRUP 100MG/5ML 200 MG/10 ML CUP PO PRN ×2 (14:24→21:46)
[2017-08-20] MEDS: traZODone HCL 50 MG TAB PO SCH (21:47)
[2017-08-20] MEDS: ATORVASTATIN 10 MG TAB PO SCH (21:47)
--- NOTE | 2017-08-20 21:50 | P.PN ---
Subjective Progress Note Date: 08/20/17 This patient is a 81-year-old right-handed white male who was seen in neurology consultation yesterday for evaluation of fall and possible NPH. Patient had an episode at home in which she collapsed and was found on the ground unable to get up. He was brought into the emergency room for further evaluation as he had struck the side of his head during the fall. He underwent a computed tomography scan of the cervical spine which revealed spondylitic changes in the lower cervical region with no acute fracture. CAT scan of the brain was also obtained and revealed mild to moderate degree of ventriculomegaly. There was no evidence for obstructive hydrocephalus. Patient was subsequent admitted to the observation unit for close monitoring. Patient is doing well today. He has had no further passing out spells. He was able to complete a routine EEG today which is reviewed and is moderately slow with no evidence of any epileptiform discharges. Patient is feeling better today overall and denies any headache symptoms. As noted yesterday he did not manifest any classical symptoms for NPH. He is been up and ambulating in the room without any difficulties today. He was able to handle it with the use of his walker today. He is complaining of some left-sided rib pain. Would recommend x-rays as he did fall onto his left side at home. Would rule out possible rib fracture. Patient did have rib x-rays done today which confirm evidence of left-sided rib fractures at the fifth and sixth ribs. He is being considered for possible inpatient rehab and inpatient admission. We did review his EEG as noted above and it was negative for any evidence of epileptic discharge. He may require inpatient rehab placement due to his generalized weakness. Patient reluctant to go to rehab stating he would like to go home. We will await further recommendations from Dr. Junior tomorrow regarding discharge planning. There is been no new changes in his overall neurological findings. We will continue close neurological follow-up with the patient during this admission. Objective - Vital Signs Vital signs: Vital Signs Temp 96.8 F L 08/20/17 15:00 Pulse 80 08/20/17 19:38 Resp 18 08/20/17 15:00 BP 119/71 08/20/17 15:00 Pulse Ox 99 08/20/17 19:18 Intake & Output 01/05/18 01/05/18 01/06/18 06:59 18:59 06:59 Other: Voiding Method Bedside Commode Urinal Diaper Incontinent # Voids 1 2 # Bowel Movements 0 - Exam Physical examination: PHYSICAL EXAMINATION: Patient is resting comfortably in bed. VITAL SIGNS: Blood pressure is [119/71]. Heart rate is [75]. Respiration is [18] . Temperature is [96.8]. HEENT: Head is atraumatic, neck is supple, there were no carotid bruits. CHEST: Lungs are clear to auscultation and percussion. CARDIAC: S1, S2 normal rate and rhythm. There is no murmur. ABDOMEN: Soft and nontender. Bowel sounds are present. EXTREMITIES: There is no pedal edema. Peripheral pulses are present. Neurological examination: Patient has a nonfocal neurological examination today. Patient has been up and ambulating with the use of his walker today. There is been no significant change in his overall neurological exam findings and his exam remains unchanged. - Labs CBC & Chem 7: 08/17/17 06:37 08/17/17 06:37 Assessment and Plan (1) Fall Current Visit: Yes Status: Acute Code(s): W19.XXXA - UNSPECIFIED FALL, INITIAL ENCOUNTER SNOMED Code(s): 0900206 (2) Near syncope Current Visit: Yes Status: Acute Code(s): R55 - SYNCOPE AND COLLAPSE SNOMED Code(s): 783881446 (3) Cerebral ventriculomegaly Current Visit: Yes Status: Acute Code(s): G93.89 - OTHER SPECIFIED DISORDERS OF BRAIN SNOMED Code(s): 918992262 (4) Rhabdomyolysis Current Visit: Yes Status: Acute Code(s): M62.82 - RHABDOMYOLYSIS SNOMED Code(s): 081215700 Plan: This patient is a pleasant 81-year-old male who recently sustained a fall and multiple abrasions to his right arm. Patient also complained of left-sided rib pain and underwent x-ray of the ribs which reveals him to have suffered 2 rib fractures. He is continuing to have some discomfort on his left rib cage. He has been up and and blading but still remains very weak. We have recommended that he consider inpatient rehab placement for subacute rehabilitation. He is reluctant to have this. We will await further recommendations from Dr. Junior. Neurologically he has no evidence of any acute stroke findings or evidence for worsening NPH. We will continue to follow his progress closely during this admission. Patient is still considering possibility of inpatient rehab. He is at this time still wishing to be discharged to home. He will discuss this tomorrow with Dr. Junior in terms of discharge planning. His overall prognosis at this time remains guarded.
[2017-08-21] MEDS: SODIUM CHLORIDE 0.9% 1,000 ML IV SCH ×2 (00:12→16:42)
[2017-08-21] MEDS: BUDESONIDE 0.5 MG/2 ML NEBU INHALATION SCH ×3 (08:01→20:10)
[2017-08-21] MEDS: IPRATROPIUM-ALBUTEROL 3 ML NEB INHALATION SCH ×5 (08:01→20:10)
[2017-08-21] MEDS ORDERED: ACETAMINOPHEN IV (For NPO) 1,000 MG in EMPTY BAG 1 BAG IVPB STA (08:43)
[2017-08-21] MEDS: ATENOLOL 25 MG TAB PO SCH ×2 (09:05→14:42)
[2017-08-21] MEDS: FAMOTIDINE 20 MG TAB PO SCH ×2 (09:05→14:42)
[2017-08-21] MEDS: FUROSEMIDE 40 MG TAB PO SCH ×2 (09:05→14:42)
[2017-08-21] MEDS: ASPIRIN 325 MG TAB PO SCH ×2 (09:05→14:42)
[2017-08-21] MEDS: HEPARIN SODIUM,PORCINE 5,000 UNIT/ML 1 ML VIAL SQ SCH ×2 (09:05→16:45)
[2017-08-21] MEDS: HYDROcodone/APAP 7.5-325MG 1 EACH TAB PO PRN ×3 (13:26→21:50)
--- NOTE | 2017-08-21 15:11 | PN ---
PROGRESS NOTE DATE OF SERVICE: 08/20/2017. CHIEF COMPLAINT: The fall and metastatic, terminal CA of the lung with 2 left-sided rib fractures. HISTORY OF PRESENT ILLNESS: This gentleman is deteriorating. He is becoming more lethargic. PHYSICAL EXAM: Breath sounds are shallow. He is pale and is chronically ill in appearance. IMPRESSION: 1. Metastatic carcinoma of the lung. 2. Chronic obstructive pulmonary disease. 3. Two left-sided rib fractures. 4. Lethargy and nocturnal delirium. PLAN: Continue on current program for the time being. Discharge planning is being requested. MMODL / IJN: [id number] /
--- NOTE | 2017-08-21 15:14 | PN ---
PROGRESS NOTE DATE OF SERVICE: 08/21/2017. CHIEF COMPLAINT: CA of the lung. HISTORY OF PRESENT ILLNESS: This gentleman is about the same. He has started to run a fever. He is still a little bit lethargic and complaining of pain left side of the chest. PHYSICAL EXAM: Color is pale. Breath sounds are diminished throughout. Cardiac exam is normal. Abdomen is soft. IMPRESSION: 1. Metastatic carcinoma of the lung. 2. Left-sided rib fractures. PLAN: The situation was discussed with the patient. He is made aware of the fact that he is deteriorating rapidly due to his carcinoma and nothing further can be done. He understands. Code status was discussed and he agreed to go to a DNR status. The order will be entered. MMODL / IJN: [id number] /
[2017-08-21] MEDS: traZODone HCL 50 MG TAB PO SCH (20:22)
[2017-08-21] MEDS: ATORVASTATIN 10 MG TAB PO SCH (20:22)
[2017-08-21] MEDS: ZOLPIDEM 5 MG TAB PO PRN (21:50)
[2017-08-21] MEDS: guaiFENesin SYRUP 100MG/5ML 200 MG/10 ML CUP PO PRN (21:50)
[2017-08-22] MEDS: HEPARIN SODIUM,PORCINE 5,000 UNIT/ML 1 ML VIAL SQ SCH ×4 (00:10→23:38)
[2017-08-22] MEDS: SODIUM CHLORIDE 0.9% 1,000 ML IV SCH ×2 (04:09→16:07)
[2017-08-22] MEDS: IPRATROPIUM-ALBUTEROL 3 ML NEB INHALATION SCH ×4 (08:23→19:37)
[2017-08-22] MEDS: BUDESONIDE 0.5 MG/2 ML NEBU INHALATION SCH ×2 (08:23→19:37)
[2017-08-22] MEDS: FUROSEMIDE 40 MG TAB PO SCH (08:25)
[2017-08-22] MEDS: FAMOTIDINE 20 MG TAB PO SCH (08:25)
[2017-08-22] MEDS: ATENOLOL 25 MG TAB PO SCH (08:25)
[2017-08-22] MEDS: ASPIRIN 325 MG TAB PO SCH (08:25)
[2017-08-22] MEDS: HYDROcodone/APAP 7.5-325MG 1 EACH TAB PO PRN ×3 (12:53→21:50)
--- NOTE | 2017-08-22 17:47 | P.PN ---
Subjective Progress Note Date: 08/22/17 This patient is a 81-year-old male who is being evaluated for recent fall and rib fractures. He was noted to have altered mentation initially but is now near baseline level of function. He has history of metastatic carcinoma of the lung and is being followed by Dr. Junior. Case was discussed with the patient and Dr. Junior yesterday regarding his poor prognosis. He is to be made DO NOT RESUSCITATE status after the discussion yesterday. Patient states he is doing about the same. He would like to go home but states he does have a slight cold today. His left-sided rib pain is about the same. He has been up and ambulating but only walks in his room. We will continue to follow his progress closely. His overall prognosis at this time remains guarded. Objective - Vital Signs Vital signs: Vital Signs Temp 97.5 F L 08/22/17 15:58 Pulse 82 08/22/17 15:58 Resp 16 08/22/17 15:58 BP 98/46 08/22/17 15:58 Pulse Ox 97 08/22/17 15:58 Intake & Output 08/21/17 08/22/17 08/22/17 18:59 06:59 18:59 Intake Total 0 120 Output Total 500 Balance 0 -500 120 Intake: Oral 0 120 Output: Urine 500 Other: # Voids 3 1 1 # Bowel Movements 0 - Exam Physical examination: PHYSICAL EXAMINATION: Patient is resting comfortably in bed. VITAL SIGNS: Blood pressure is [98/46]. Heart rate is [82]. Respiration is [16] . Temperature is [97.5]. HEENT: Head is atraumatic, neck is supple, there were no carotid bruits. CHEST: Lungs are clear to auscultation and percussion. CARDIAC: S1, S2 normal rate and rhythm. There is no murmur. ABDOMEN: Soft and nontender. Bowel sounds are present. EXTREMITIES: There is no pedal edema. Peripheral pulses are present. Neurological examination: Patient has a nonfocal neurological examination today. Patient has been up and ambulating with the use of his walker today. There is been no significant change in his overall neurological exam findings and his exam remains unchanged. - Labs CBC & Chem 7: 08/17/17 06:37 08/17/17 06:37 Assessment and Plan (1) Fall Current Visit: Yes Status: Acute Code(s): W19.XXXA - UNSPECIFIED FALL, INITIAL ENCOUNTER SNOMED Code(s): 8930588 (2) Near syncope Current Visit: Yes Status: Acute Code(s): R55 - SYNCOPE AND COLLAPSE SNOMED Code(s): 003542912 (3) Cerebral ventriculomegaly Current Visit: Yes Status: Acute Code(s): G93.89 - OTHER SPECIFIED DISORDERS OF BRAIN SNOMED Code(s): 723519367 (4) Rhabdomyolysis Current Visit: Yes Status: Acute Code(s): M62.82 - RHABDOMYOLYSIS SNOMED Code(s): 323324245 Plan: This patient is a 81-year-old male admitted with recent fall and left-sided rib fracture. He has a history of metastatic carcinoma of the lung. He has been made DO NOT RESUSCITATE status yesterday by Dr. Junior. His overall prognosis was discussed with the patient yesterday. Patient continues to do fairly well. He does have a slight fever and cold today. He is awaiting possible discharge home tomorrow. There is been no new changes in his overall neurological status. His overall prognosis at this time remains very guarded.
[2017-08-22] MEDS: ATORVASTATIN 10 MG TAB PO SCH (21:49)
[2017-08-22] MEDS: traZODone HCL 50 MG TAB PO SCH (21:50)
[2017-08-22] MEDS: ZOLPIDEM 5 MG TAB PO PRN (21:51)
[2017-08-22] MEDS: guaiFENesin SYRUP 100MG/5ML 200 MG/10 ML CUP PO PRN (21:51)
[2017-08-23] MEDS: SODIUM CHLORIDE 0.9% 1,000 ML IV SCH ×2 (07:41→15:13)
[2017-08-23] MEDS: FUROSEMIDE 40 MG TAB PO SCH ×2 (08:15→11:07)
[2017-08-23] MEDS: FAMOTIDINE 20 MG TAB PO SCH ×2 (08:15→11:07)
[2017-08-23] MEDS: ASPIRIN 325 MG TAB PO SCH ×2 (08:15→11:07)
[2017-08-23] MEDS: HEPARIN SODIUM,PORCINE 5,000 UNIT/ML 1 ML VIAL SQ SCH ×3 (08:15→23:37)
[2017-08-23] MEDS: ATENOLOL 25 MG TAB PO SCH ×2 (08:15→11:07)
[2017-08-23] MEDS: BUDESONIDE 0.5 MG/2 ML NEBU INHALATION SCH ×2 (08:55→19:20)
[2017-08-23] MEDS: IPRATROPIUM-ALBUTEROL 3 ML NEB INHALATION SCH ×4 (08:55→19:21)
[2017-08-23] MEDS: HYDROcodone/APAP 7.5-325MG 1 EACH TAB PO PRN (14:08)
[2017-08-23] MEDS: guaiFENesin SYRUP 100MG/5ML 200 MG/10 ML CUP PO PRN (15:25)
--- NOTE | 2017-08-23 20:13 | PN ---
PROGRESS NOTE DATE OF SERVICE: 08/22/2017 CHIEF COMPLAINT: Fall with cancer of the lung. HISTORY OF PRESENT ILLNESS: This gentleman is just about the same. He is still lethargic. He is still having quite a bit of discomfort in the left chest, where he has 2 rib fractures. He has had no fever or chills. PHYSICAL EXAMINATION: Breath sounds are diminished throughout. He is tender in the left chest. He is pale and somewhat lethargic. Cardiac exam is normal. Abdomen is soft, nontender. IMPRESSION: 1. Fall with 2 left-sided rib fractures and abrasion on the right forearm. 2. Carcinoma of the lung. 3. Chronic obstructive pulmonary disease. PLAN: Continue to keep him as comfortable as possible. MMODL / IJN: [id number] /
[2017-08-23] MEDS: traZODone HCL 50 MG TAB PO SCH (20:48)
[2017-08-23] MEDS: ATORVASTATIN 10 MG TAB PO SCH (20:48)
--- NOTE | 2017-08-23 21:01 | PN ---
PROGRESS NOTE CHIEF COMPLAINT: Carcinoma of the lung. HISTORY OF PRESENT ILLNESS: This gentleman is comfortable but still lethargic. He still seems to be oriented. PHYSICAL EXAMINATION: Color is slightly pale. Breath sounds are heard on both sides. The cardiac exam is normal. IMPRESSION: 1. Metastatic carcinoma of the lung. 2. Chronic obstructive pulmonary disease. PLAN: The patient was explained the nature of his current problem and the fact that tumor is taking over his respiratory systems and also causing his lethargy. Hospice was discussed with him, and he agrees to see them in consultation. This will be arranged. MMODL / IJN: [id number] /
[2017-08-24] MEDS: guaiFENesin SYRUP 100MG/5ML 200 MG/10 ML CUP PO PRN ×3 (08:07→18:27)
[2017-08-24] MEDS: HYDROcodone/APAP 7.5-325MG 1 EACH TAB PO PRN ×3 (08:07→18:27)
[2017-08-24] MEDS: HEPARIN SODIUM,PORCINE 5,000 UNIT/ML 1 ML VIAL SQ SCH ×3 (08:07→23:08)
[2017-08-24] MEDS: ASPIRIN 325 MG TAB PO SCH (08:08)
[2017-08-24] MEDS: FUROSEMIDE 40 MG TAB PO SCH (08:08)
[2017-08-24] MEDS: FAMOTIDINE 20 MG TAB PO SCH (08:08)
[2017-08-24] MEDS: ATENOLOL 25 MG TAB PO SCH (08:09)
[2017-08-24] MEDS: BUDESONIDE 0.5 MG/2 ML NEBU INHALATION SCH ×2 (09:23→19:05)
[2017-08-24] MEDS: IPRATROPIUM-ALBUTEROL 3 ML NEB INHALATION SCH ×4 (09:23→19:07)
[2017-08-24] MEDS: SODIUM CHLORIDE 0.9% 1,000 ML IV SCH (10:35)
[2017-08-24 15:10] VITALS: RESP 16
[2017-08-24 15:15] VITALS: BMI 17.2
[2017-08-24] MEDS: ATORVASTATIN 10 MG TAB PO SCH ×2 (21:48→21:50)
[2017-08-24] MEDS: traZODone HCL 50 MG TAB PO SCH ×2 (21:48→23:08)
[2017-08-25] MEDS: HYDROcodone/APAP 7.5-325MG 1 EACH TAB PO PRN ×4 (00:14→16:05)
--- NOTE | 2017-08-25 06:36 | PN ---
PROGRESS NOTE DATE OF SERVICE: 08/24/2017. CHIEF COMPLAINT: Metastatic CA of the lung. HISTORY OF PRESENT ILLNESS: This gentleman is fairly comfortable and arrangements are being made for him to be moved out of the hospital. It is not clear where he will go. PHYSICAL EXAM: Breath sounds are very poor throughout and he is tender in the left chest. Cardiac exam is normal. IMPRESSION: 1. Metastatic cancer of the lung. 2. Chronic obstructive pulmonary disease. 3. Fall. PLAN: The family does not want him to be on hospice and this will have to be discussed again with the patient. He agreed to hospice 2 days ago. Apparently arrangements were made for him to go to [facility] and he will probably go there tomorrow. MMODL / IJN: [id number] /
[2017-08-25 07:14] VITALS: BP 125/62
[2017-08-25] MEDS: ASPIRIN 325 MG TAB PO SCH (08:10)
[2017-08-25] MEDS: ATENOLOL 25 MG TAB PO SCH (08:10)
[2017-08-25] MEDS: FUROSEMIDE 40 MG TAB PO SCH (08:10)
[2017-08-25] MEDS: HEPARIN SODIUM,PORCINE 5,000 UNIT/ML 1 ML VIAL SQ SCH ×2 (08:10→16:07)
[2017-08-25] MEDS: FAMOTIDINE 20 MG TAB PO SCH (08:10)
[2017-08-25] MEDS: guaiFENesin SYRUP 100MG/5ML 200 MG/10 ML CUP PO PRN ×3 (08:15→16:05)
[2017-08-25] MEDS: IPRATROPIUM-ALBUTEROL 3 ML NEB INHALATION SCH ×3 (08:52→15:49)
[2017-08-25] MEDS: BUDESONIDE 0.5 MG/2 ML NEBU INHALATION SCH (08:52)
[2017-08-25 12:27] VITALS: TEMP 97.9
--- NOTE | 2017-08-25 12:48 | DS ---
DISCHARGE SUMMARY CHIEF COMPLAINT: Weakness, failure to thrive, general debility, and fall with left-sided rib fractures as well as COPD and a CA of the lung. HISTORY OF PRESENT ILLNESS AND PHYSICAL EXAM: Details of this man's history and physical can be found in the initial workup. LABORATORY STUDIES: While he is in the hospital he had laboratory studies, details which can be found in the laboratory section of his chart. COURSE IN HOSPITAL: After admission, he was placed on bedrest, started on intravenous fluids and analgesics. During the hospitalization, he became generally more lethargic, less responsive and decision was made to discuss code status and hospice with him. He agreed to a NO CODE status and hospice referral. However, his family called that they did not want him placed in hospice. This was discussed with the patient and he reaffirmed would be willing to be seen by hospice. Arrangements were also made for him to go to [facility] and he will be transferred there on the . FINAL DIAGNOSES: 1. Metastatic cancer of the lung. 2. Chronic obstructive pulmonary disease. 3. Fall. 4. Two left-sided rib fractures. 5. Failure to thrive. OPERATIONS: None. CONSULTATIONS: None. He is improved. MMODL / IJN: [id number] /
[2017-08-25 16:04] VITALS: PULSE 72
== END 2017-08-25 16:50 | DRG 914 ==
LOC: EC 13:29 → 3OBS 18:27 → INTOOBSV 08-17 15:50 → OBSVTOIN 08-17 15:50 → 4MS4W 08-17 18:55
PROVIDERS: ADMIT Family Medicine; ATTEND Family Medicine
DX: S09.90XA Unspecified injury of head, initial encounter (principal); G91.9 Hydrocephalus, unspecified; C34.90 Malignant neoplasm of unspecified part of unspecified bronchus or lung; J44.9 Chronic obstructive pulmonary disease, unspecified; I13.0 Hypertensive heart and chronic kidney disease with heart failure and stage 1 through stage 4 chronic kidney disease, or unspecified chronic kidney disease; E87.1 Hypo-osmolality and hyponatremia; I50.9 Heart failure, unspecified; M62.82 Rhabdomyolysis; S22.42XA Multiple fractures of ribs, left side, initial encounter for closed fracture; D53.9 Nutritional anemia, unspecified; E78.5 Hyperlipidemia, unspecified; K21.9 Gastro-esophageal reflux disease without esophagitis; N18.3 Chronic kidney disease, stage 3 (moderate); R62.7 Adult failure to thrive; S40.811A Abrasion of right upper arm, initial encounter; S50.02XA Contusion of left elbow, initial encounter; S50.811A Abrasion of right forearm, initial encounter; S90.02XA Contusion of left ankle, initial encounter; W06.XXXA Fall from bed, initial encounter; Y92.003 Bedroom of unspecified non-institutional (private) residence as the place of occurrence of the external cause; Z66 Do not resuscitate; Z79.82 Long term (current) use of aspirin; Z79.899 Other long term (current) drug therapy; Z82.49 Family history of ischemic heart disease and other diseases of the circulatory system; Z87.891 Personal history of nicotine dependence; Z91.81 History of falling
CPT/HCPCS: 36415; 70450; 71046; 72100; 72125; 72170; 80048; 80053; 81001; 82550; 82553; 84484; 85025; 85027; 85610; 85730; 93005; 94640; 94760; 95816; 96360; 96361; 99285

== ENCOUNTER 2017-11-07 10:59 | Emergency (ER) | payer MEDICARE, OTHER ==
[2017-11-07 11:26] VITALS: RESP 18
[2017-11-07] MEDS ORDERED: Acetaminophen-Codeine 300-30mg TAB PO STA (11:41)
[2017-11-07 12:32] LABS: Anisocytosis Slight; Basophils % (A) 1 %; Eosinophils # (A) 0.2 k/uL (0-0.7); Eosinophils % (A) 6 %; HCT 30.5 % (39.0-53.0); HGB 9.4 gm/dL (13.0-17.5); Hypochromasia Slight; Lymphocytes # (A) 0.7 k/uL (1.0-4.8); Lymphocytes % (A) 20 %; MCH 30.9 pg (25.0-35.0); MCHC 30.8 g/dL (31.0-37.0); MCV 100.6 fL (80.0-100.0); Macrocytosis Slight; Mean Platelet Volume 8.5; Monocytes # (A) 0.2 k/uL (0-1.0); Monocytes % (A) 6 %; Neutrophils # (A) 2.3 k/uL (1.3-7.7); Neutrophils % (A) 66 %; Platelet Count 331 k/uL (150-450); RBC 3.04 m/uL (4.30-5.90); RDW 16.1 % (11.5-15.5); WBC 3.5 k/uL (3.8-10.6)
[2017-11-07 12:42] LABS: Albumin 3.5 g/dL (3.5-5.0); Calcium 9.9 mg/dL (8.4-10.2); Potassium 4.6 mmol/L (3.5-5.1); Total Bilirubin 0.6 mg/dL (0.2-1.3); Total Protein 6.8 g/dL (6.3-8.2)
--- NOTE | 2017-11-07 12:57 | XR ---
EXAMINATION TYPE: XR femur RT, XR knee complete RT , 7 VIEWS DATE OF EXAM ORDERED: 11/07/2017 HISTORY: Pain. COMPARISON: None. FINDINGS: There are mild degenerative changes in the right hip. There are vascular calcifications pr esent. No fracture, dislocation or other acute osseous lesion is seen. Osseous structures about the knee are within normal limits. There is no fracture, dislocation or knee joint effusion. IMPRESSION: NO ACUTE OSSEOUS LESION.
--- NOTE | 2017-11-07 13:21 | ED ---
Lower Extremity Injury HPI - General Source: patient, RN notes reviewed Mode of arrival: wheelchair Limitations: no limitations <Anthony Serra - Last Filed: 11/07/17 13:14> <Lion Wills - Last Filed: 11/07/17 13:24> - General Chief Complaint: Extremity Injury, Lower Stated Complaint: Fall Time Seen by Provider: 11/07/17 11:29 - History of Present Illness Initial Comments: This an 82-year-old male presents emergency Department chief complaint of fall, right knee and leg pain. Patient states he tripped and fell yesterday. Patient states he has severe pain to his right knee does have a wheelchair and walker at home. Family states it. On the leg secondary pain he is only currently taking Tylenol. Patient had no reported fevers chills. Patient was in senior living racing which he states he lost lumbar the strength and wait because he was on a liquid diet. Patient states she's gained approximately 6 pounds since being discharged. Patient denies any injury no loss of consciousness. Denies any other extremity injuries. (Anthony Serra) - Related Data Home Medications Medication Instructions Recorded Confirmed Dronabinol [Marinol] 2.5 mg PO BID 11/07/17 11/07/17 Protein Tab 1 tab PO DAILY 11/07/17 11/07/17 Previous Rx's Medication Instructions Recorded Ipratropium-Albuterol Nebulize 3 ml INHALATION RT-QID PRN 09/20/17 [Duoneb 0.5 mg-3 mg/3 ml Soln] ampul.neb Acetaminophen-Codeine 300-30mg 1 tab PO Q4H PRN #20 tablet 11/07/17 [Tylenol #3] Allergies Allergy/AdvReac Type Severity Reaction Status Date / Time ceftriaxone sodium Allergy Itching Verified 11/07/17 12:27 [From Rocephin] Iodinated Contrast- Oral and Allergy Anaphylaxis Verified 11/07/17 12:27 IV Dye [Iodinated Contrast Media - IV Dye] levofloxacin Allergy Itching Verified 11/07/17 12:27 Review of Systems ROS Other: All systems not noted in ROS Statement are negative. <Anthony Serra - Last Filed: 11/07/17 13:14> ROS Other: All systems not noted in ROS Statement are negative. <Lion Wills - Last Filed: 11/07/17 13:24> ROS Statement: Those systems with pertinent positive or pertinent negative responses have been documented in the HPI. 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 History of Any Multi-Drug Resistant Organisms: None Reported Past Surgical History: Appendectomy, Tonsillectomy Additional Past Surgical History / Comment(s): AAA, NAYAN ROTATOR CUFF,NAYAN THUMB SX, LARYNGOSCOPY FOR HORSENESS,LT VOCAL CORD WEAKNESS.NEEDLE ASPIRATION LT LUNG MASS WAS POSITIVE FOR CANCER -PT STATED HE COMPLETED 5 RADIATION TREATMENTS. Past Anesthesia/Blood Transfusion Reactions: No Reported Reaction Additional Past Anesthesia/Blood Transfusion Reaction / Comment(s): blood transfusion Past Psychological History: No Psychological Hx Reported Smoking Status: Former smoker Past Alcohol Use History: None Reported Past Drug Use History: None Reported - Past Family History Father Family Medical History: Coronary Artery Disease (CAD) Mother Additional Family Medical History / Comment(s): ANEMIA <Anthony Serra M - Last Filed: 11/07/17 13:14> General Exam Limitations: no limitations General appearance: alert, in no apparent distress, cachectic Head exam: Present: atraumatic, normocephalic, normal inspection Neck exam: Present: normal inspection, full ROM. Absent: tenderness, meningismus, lymphadenopathy Respiratory exam: Present: normal lung sounds bilaterally. Absent: respiratory distress, wheezes, rales, rhonchi, stridor Cardiovascular Exam: Present: regular rate, normal rhythm, normal heart sounds. Absent: systolic murmur, diastolic murmur, rubs, gallop, clicks Extremities exam: Present: other (Right knee there is diffuse tenderness no iris deformity. Patient has very minimal muscle mass. Patient has some tenderness the right femur. Patient skin corners bilaterally warmth. Pulses are equal bilaterally there is no tenderness the right lower leg.) Neurological exam: Present: reflexes normal. Absent: motor sensory deficit Skin exam: Present: warm, dry, intact, normal color. Absent: rash <Dedoe,Anthony M - Last Filed: 11/07/17 13:14> Course <Anthony Serra - Last Filed: 11/07/17 13:14> <Lion Wills - Last Filed: 11/07/17 13:24> Vital Signs 11/07/17 11:23 Temperature 97.8 F Pulse Rate 61 Respiratory 18 Rate Blood Pressure 94/56 O2 Sat by Pulse 93 L Oximetry - Reevaluation(s) Reevaluation #1: 11/07/17 13:19 Patient was reevaluated states pain medications has helped him. Patient was updated on x-ray and lab results. (Anthony Serra) Reevaluation #2: 11/07/17 13:24 I did personally do a [id number] evaluation the patient did discuss findings with him and his family. I do agree with the assessment and plan at this time. Patient has been liquid diet he states but he is able swallow without difficulty this time. I did recommend increasing his fluids and advance his diet. (Lion Wills) Medical Decision Making - Lab Data Result diagrams: 11/07/17 12:20 11/07/17 12:20 <Anthony Serra - Last Filed: 11/07/17 13:14> - Lab Data Result diagrams: 11/07/17 12:20 11/07/17 12:20 <Lion Wills - Last Filed: 11/07/17 13:24> - Lab Data Lab Results 11/07/17 11/07/17 11/07/17 Range/Units 12:20 12:20 12:20 WBC 3.5 L (3.8-10.6) k/uL RBC 3.04 L (4.30-5.90) m/uL Hgb 9.4 L (13.0-17.5) gm/dL Hct 30.5 L (39.0-53.0) % MCV 100.6 H (80.0-100.0) fL MCH 30.9 (25.0-35.0) pg MCHC 30.8 L (31.0-37.0) g/dL RDW 16.1 H (11.5-15.5) % Plt Count 331 (150-450) k/uL Neutrophils % 66 % Lymphocytes % 20 % Monocytes % 6 % Eosinophils % 6 % Basophils % 1 % Neutrophils # 2.3 (1.3-7.7) k/uL Lymphocytes # 0.7 L (1.0-4.8) k/uL Monocytes # 0.2 (0-1.0) k/uL Eosinophils # 0.2 (0-0.7) k/uL Basophils # 0.0 (0-0.2) k/uL Hypochromasia Slight Anisocytosis Slight Macrocytosis Slight Sodium 144 (137-145) mmol/L Potassium 4.6 (3.5-5.1) mmol/L Chloride 104 (98-107) mmol/L Carbon Dioxide 29 (22-30) mmol/L Anion Gap 11 mmol/L BUN 41 H (9-20) mg/dL Creatinine 1.10 (0.66-1.25) mg/dL Est GFR (CKD-EPI)AfAm 71 (>60 ml/min/1.73 sqM) Est GFR (CKD-EPI)NonAf 61 (>60 ml/min/1.73 sqM) Glucose 106 H (74-99) mg/dL Calcium 9.9 (8.4-10.2) mg/dL Total Bilirubin 0.6 (0.2-1.3) mg/dL AST 28 (17-59) U/L ALT 24 (21-72) U/L Alkaline Phosphatase 79 (38-126) U/L Total Protein 6.8 (6.3-8.2) g/dL Albumin 3.5 (3.5-5.0) g/dL Stool Occult Blood Negative (Negative) Disposition Time of Disposition: 13:21 <Anthony Serra - Last Filed: 11/07/17 13:14> <Lion Wills - Last Filed: 11/07/17 13:24> Clinical Impression: Fall, Contusion of right knee, Anemia Disposition: HOME SELF-CARE Condition: Stable Instructions: Knee Pain (ED) Additional Instructions: Please return to the Emergency Department if symptoms worsen or any other concerns. Prescriptions: Acetaminophen-Codeine 300-30mg [Tylenol #3] 1 tab PO Q4H PRN #20 tablet PRN Reason: pain Referrals: Diogo Junior MD [Primary Care Provider] - 1-2 days
[2017-11-07 14:04] VITALS: BP 120/58; PULSE 70; TEMP 98
== END 2017-11-07 14:07 | disposition home or self-care (01) ==
LOC: EC 10:59
DX: S80.01XA Contusion of right knee, initial encounter (principal); D64.9 Anemia, unspecified; Z79.899 Other long term (current) drug therapy; Z88.1 Allergy status to other antibiotic agents; Z91.041 Radiographic dye allergy status; Z85.118 Personal history of other malignant neoplasm of bronchus and lung; Z87.891 Personal history of nicotine dependence; W01.0XXA Fall on same level from slipping, tripping and stumbling without subsequent striking against object, initial encounter
CPT/HCPCS: 36415; 80053; 82272; 85025; 99283

== ENCOUNTER 2018-01-02 23:02 | Inpatient (IN) | payer MEDICARE, OTHER ==
[2018-01-03] MEDS ORDERED: ASPIRIN 81 MG PO STA (00:02)
[2018-01-03] MEDS ORDERED: SODIUM CHLORIDE 0.9% 500 ML IV STA (00:02)
[2018-01-03] MEDS ORDERED: NITROGLYCERIN OINT 1 INCH/GM PACKET TOPICAL STA (00:02)
[2018-01-03] MEDS: SODIUM CHLORIDE 0.9% 1,000 ML IV STA ×2 (00:12→09:33)
[2018-01-03 00:21] LABS: Basophils % (A) 0 %; Eosinophils # (A) 0.2 k/uL (0-0.7); Eosinophils % (A) 2 %; HCT 35.1 % (39.0-53.0); Lymphocytes # (A) 2.1 k/uL (1.0-4.8); Lymphocytes % (A) 24 %; MCH 32.3 pg (25.0-35.0); MCHC 31.4 g/dL (31.0-37.0); Macrocytosis Slight; Monocytes # (A) 0.3 k/uL (0-1.0); Monocytes % (A) 4 %; Neutrophils % (A) 69 %; Platelet Count 195 k/uL (150-450); RBC 3.41 m/uL (4.30-5.90); RDW 15.6 % (11.5-15.5); WBC 8.7 k/uL (3.8-10.6)
[2018-01-03] MEDS ORDERED: IPRATROPIUM-ALBUTEROL 3 ML NEB INHALATION STA (00:33)
--- NOTE | 2018-01-03 00:33 | ED ---
General Adult HPI - General Chief complaint: Chest Pain Stated complaint: chest pain Time Seen by Provider: 01/02/18 23:51 Source: patient, EMS Mode of arrival: EMS Limitations: physical limitation - History of Present Illness Initial comments: This 82-year-old white male presents with a complaint of pain into his bilateral upper back and lower neck. He states that this occurred over the last 1 day. He denies any anterior chest pain. He denies any shortness of breath. He states that he has lung cancer and is currently on hospice in this regard. He does complain of some pain into his right leg more in the anterior nash region and apparently fell this past month and has had continuous pain. There's been no swelling. 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 He is not currently obtaining any care for his lung cancer. He has tried Tylenol for his upper back pain. He denies any other complaints or modifying factors. He does present via EMS and did receive one sublingual nitroglycerin and had some slight improvement of his pain. He apparently initially had lung cancer and this was treated with radiation therapy and they thought that it was resolved but then it reoccurred and they have elected not to undergo any further treatment as it was felt as though he could not handle additional treatment due to his age and current status. - Related Data Home Medications Medication Instructions Recorded Confirmed Dronabinol [Marinol] 2.5 mg PO BID 11/07/17 11/07/17 Protein Tab 1 tab PO DAILY 11/07/17 11/07/17 Previous Rx's Medication Instructions Recorded Ipratropium-Albuterol Nebulize 3 ml INHALATION RT-QID PRN 09/20/17 [Duoneb 0.5 mg-3 mg/3 ml Soln] ampul.neb Acetaminophen-Codeine 300-30mg 1 tab PO Q4H PRN #20 tablet 11/07/17 [Tylenol #3] Allergies Allergy/AdvReac Type Severity Reaction Status Date / Time ceftriaxone sodium Allergy Itching Verified 01/02/18 23:47 [From Rocephin] Iodinated Contrast- Oral and Allergy Anaphylaxis Verified 01/02/18 23:47 IV Dye [Iodinated Contrast Media - IV Dye] levofloxacin Allergy Itching Verified 01/02/18 23:47 Review of Systems ROS Statement: Those systems with pertinent positive or pertinent negative responses have been documented in the HPI. ROS Other: All systems not noted in ROS Statement are negative. 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 History of Any Multi-Drug Resistant Organisms: None Reported Past Surgical History: Appendectomy, Tonsillectomy Additional Past Surgical History / Comment(s): AAA, NAYAN ROTATOR CUFF,NAYAN THUMB SX, LARYNGOSCOPY FOR HORSENESS,LT VOCAL CORD WEAKNESS.NEEDLE ASPIRATION LT LUNG MASS WAS POSITIVE FOR CANCER -PT STATED HE COMPLETED 5 RADIATION TREATMENTS. Past Anesthesia/Blood Transfusion Reactions: No Reported Reaction Additional Past Anesthesia/Blood Transfusion Reaction / Comment(s): blood transfusion Past Psychological History: No Psychological Hx Reported Smoking Status: Former smoker Past Alcohol Use History: None Reported Past Drug Use History: None Reported - Past Family History Father Family Medical History: Coronary Artery Disease (CAD) Mother Additional Family Medical History / Comment(s): ANEMIA General Exam - General Exam Comments Initial Comments: GENERAL: The patient appears malnourished and cachectic. VITAL SIGNS: Heart rate, blood pressure, respiratory rate reviewed as recorded in nurse's notes. EYES: Pupils are round and reactive. Extraocular movements are intact. No conjunctival / lid redness or swelling. ENT: No external evidence of injury, swelling, or ecchymosis. Airway is patent. Throat is clear. NECK: There is minimal tenderness present to the lower neck bilaterally. No swelling or evidence of injury. No subcutaneous emphysema. Trachea is midline. No thyroid mass. HEART: Regular rate and rhythm. Good peripheral pulses. LUNGS/CHEST: Breath sounds clear and equal bilaterally. No rales, rhonchi, or wheezes. No ecchymosis, subcutaneous emphysema, or tenderness. ABDOMEN: Abdomen soft without tenderness. No palpable masses or organomegaly. No peritoneal signs. No abdominal wall swelling or ecchymosis. EXTREMITIES: No extremity tenderness. Normal muscle tone and function. There is minimal tenderness present to the bilateral upper thoracic musculature. NEUROLOGIC: Sensation is grossly intact. Cranial nerve exam reveals face is symmetrical, tongue is midline, speech is clear. SKIN: No abrasions or ecchymosis is noted. No induration or masses noted. PSYCHIATRIC: Alert and oriented. Appropriate behavior and judgment. Limitations: physical limitation Course Vital Signs 01/02/18 01/03/18 01/03/18 23:19 00:43 00:49 Temperature 99.0 F Pulse Rate 120 H 113 H 113 H Respiratory 20 Rate Blood Pressure 160/91 O2 Sat by Pulse 91 L Oximetry Medical Decision Making - Medical Decision Making The patient was seen and examined. There is some delay in seeing him initially as his place of living apparently was flagged for having bedbugs and he went directly to the shower region prior to evaluation. His diagnostics are all reviewed. The EKG shows a sinus tachycardia at a rate of 117 with occasional PVC noted. There is no acute ST elevation with some nonspecific T wave changes noted in 1 and aVL. The MN intervals 198, QRS duration is 94, and the QTc interval is 510. He refuses any pain medications initially. The laboratory does show a mild hypokalemia as well as some anemia. The d-dimer is elevated and the BNP is slightly elevated. The chest x-ray shows evidence of an irregular consolidation in the left mid lung consistent with treated lung cancer. This is similar to old exam. There is probable new infiltrate and pleural fluid in the right lower lobe compared to old exam. There is no gross heart failure. The possibility of a pulmonary embolism does exist his he does have risk factors. He does have known lung cancer and is immobile. He does have a history of previous DVT and PE. A CT angiogram was not completed due to his iodine ALLERGY. He is started on heparin. He also will be covered with antibiotics for possible pneumonia. Case will be discussed with internal medicine in the near future. He does relate that he is enrolled in hospice but still wants treatment and admission with further workup. On recheck, he is agreeable to pain medications and is given some morphine. - Lab Data Result diagrams: 01/02/18 23:56 01/02/18 23:56 Lab Results 01/02/18 01/02/18 01/02/18 Range/Units 23:56 23:56 23:56 WBC 8.7 (3.8-10.6) k/uL RBC 3.41 L (4.30-5.90) m/uL Hgb 11.0 L (13.0-17.5) gm/dL Hct 35.1 L (39.0-53.0) % MCV 103.0 H (80.0-100.0) fL MCH 32.3 (25.0-35.0) pg MCHC 31.4 (31.0-37.0) g/dL RDW 15.6 H (11.5-15.5) % Plt Count 195 (150-450) k/uL Neutrophils % 69 % Lymphocytes % 24 % Monocytes % 4 % Eosinophils % 2 % Basophils % 0 % Neutrophils # 6.0 (1.3-7.7) k/uL Lymphocytes # 2.1 (1.0-4.8) k/uL Monocytes # 0.3 (0-1.0) k/uL Eosinophils # 0.2 (0-0.7) k/uL Basophils # 0.0 (0-0.2) k/uL Macrocytosis Slight PT (9.0-12.0) sec INR (<1.2) APTT (22.0-30.0) sec D-Dimer (<0.60) mg/L FEU Sodium 144 (137-145) mmol/L Potassium 5.3 H (3.5-5.1) mmol/L Chloride 104 (98-107) mmol/L Carbon Dioxide 24 (22-30) mmol/L Anion Gap 16 mmol/L BUN 54 H (9-20) mg/dL Creatinine 1.10 (0.66-1.25) mg/dL Est GFR (CKD-EPI)AfAm 71 (>60 ml/min/1.73 sqM) Est GFR (CKD-EPI)NonAf 61 (>60 ml/min/1.73 sqM) Glucose 117 H (74-99) mg/dL Calcium 10.2 (8.4-10.2) mg/dL Magnesium 2.2 (1.6-2.3) mg/dL Total Bilirubin 0.7 (0.2-1.3) mg/dL AST 44 (17-59) U/L ALT 29 (21-72) U/L Alkaline Phosphatase 61 (38-126) U/L Total Creatine Kinase 27 L (55-170) U/L CK-MB (CK-2) 0.3 (0.0-2.4) ng/mL CK-MB (CK-2) Rel Index 1.1 Troponin I <0.012 (0.000-0.034) ng/mL NT-Pro-B Natriuret Pep pg/mL Total Protein 7.3 (6.3-8.2) g/dL Albumin 3.9 (3.5-5.0) g/dL 01/02/18 01/02/18 Range/Units 23:56 23:56 WBC (3.8-10.6) k/uL RBC (4.30-5.90) m/uL Hgb (13.0-17.5) gm/dL Hct (39.0-53.0) % MCV (80.0-100.0) fL MCH (25.0-35.0) pg MCHC (31.0-37.0) g/dL RDW (11.5-15.5) % Plt Count (150-450) k/uL Neutrophils % % Lymphocytes % % Monocytes % % Eosinophils % % Basophils % % Neutrophils # (1.3-7.7) k/uL Lymphocytes # (1.0-4.8) k/uL Monocytes # (0-1.0) k/uL Eosinophils # (0-0.7) k/uL Basophils # (0-0.2) k/uL Macrocytosis PT 10.0 (9.0-12.0) sec INR 1.0 (<1.2) APTT 19.1 L (22.0-30.0) sec D-Dimer 3.41 H (<0.60) mg/L FEU Sodium (137-145) mmol/L Potassium (3.5-5.1) mmol/L Chloride (98-107) mmol/L Carbon Dioxide (22-30) mmol/L Anion Gap mmol/L BUN (9-20) mg/dL Creatinine (0.66-1.25) mg/dL Est GFR (CKD-EPI)AfAm (>60 ml/min/1.73 sqM) Est GFR (CKD-EPI)NonAf (>60 ml/min/1.73 sqM) Glucose (74-99) mg/dL Calcium (8.4-10.2) mg/dL Magnesium (1.6-2.3) mg/dL Total Bilirubin (0.2-1.3) mg/dL AST (17-59) U/L ALT (21-72) U/L Alkaline Phosphatase (38-126) U/L Total Creatine Kinase (55-170) U/L CK-MB (CK-2) (0.0-2.4) ng/mL CK-MB (CK-2) Rel Index Troponin I (0.000-0.034) ng/mL NT-Pro-B Natriuret Pep 2510 pg/mL Total Protein (6.3-8.2) g/dL Albumin (3.5-5.0) g/dL Disposition Clinical Impression: Thoracic back pain, Sinus tachycardia, Hypoxia, Lung cancer, Prolonged Q-T interval on ECG, Elevated d-dimer, Hyperkalemia, Anemia Disposition: ADMITTED IP TO THIS HOSP Condition: Fair Is patient prescribed a controlled substance at d/c from ED?: No Time of Disposition: 01:11 Decision Date: 01/03/18 Decision Time: 01:12
[2018-01-03 00:36] LABS: Calcium 10.2 mg/dL (8.4-10.2); Total Bilirubin 0.7 mg/dL (0.2-1.3)
[2018-01-03 00:42] LABS: Albumin 3.9 g/dL (3.5-5.0); Magnesium 2.2 mg/dL (1.6-2.3); Potassium 5.3 mmol/L (3.5-5.1); Total Protein 7.3 g/dL (6.3-8.2)
[2018-01-03 00:46] LABS: Creatine Kinase 27 U/L (55-170)
--- NOTE | 2018-01-03 00:53 | XR ---
EXAMINATION TYPE: XR chest 2V DATE OF EXAM: 01/03/2018 COMPARISON: 09/14/2017 HISTORY: Back pain. Leg swelling. Lung cancer. TECHNIQUE: Frontal and lateral views of the chest are obtained. FINDINGS: There is irregular approximate 8 x 4 similar area of consolidation in the left midlung was sterilely. There is blunting of right costophrenic angle. There is no heart failure. Heart size is n ormal. Thoracic aorta is atheromatous. There is probably infiltrate in the right lower lobe. IMPRESSION: Irregular consolidation in the left midlung consistent with treated lung cancer. This is similar to old exam. There is probably new infiltrate and pleural fluid in the right lower lobe comp ared to old exam. No gross heart failure.
[2018-01-03 00:54] LABS: D-Dimer 3.41 mg/L FEU (<0.60); Partial Thromboplastin Time 19.1 sec (22.0-30.0)
[2018-01-03 00:59] LABS: Creatine Kinase MB 0.3 ng/mL (0.0-2.4); Troponin I <0.012 ng/mL (0.000-0.034)
[2018-01-03] MEDS ORDERED: ENOXAPARIN 40 MG/0.4 ML SYRINGE SQ STA (01:04)
[2018-01-03] MEDS ORDERED: MORPHINE SULFATE 4 MG/ML SYRINGE IV STA (01:05)
[2018-01-03] MEDS ORDERED: HEPARIN SODIUM,PORCINE 10,000 UNIT/ML 1 ML VIAL IV ONE (01:09)
[2018-01-03] MEDS ORDERED: NITROGLYCERIN SL TABS 0.4 MG TAB SUBLINGUAL PRN (01:12)
[2018-01-03] MEDS ORDERED: MORPHINE SULFATE 4 MG/ML SYRINGE IV PRN (01:12)
[2018-01-03] MEDS ORDERED: PIPERACILLIN-TAZOBACTAM 3.375 GM in DEXTROSE/WATER 1 50ML.BAG IVPB STA (01:18)
[2018-01-03] MEDS ORDERED: VANCOMYCIN IV PER PHARMACY 1 EACH MISC MISCELLANE PRN (01:18)
[2018-01-03] MEDS ORDERED: VANCOMYCIN 750 MG in SODIUM CHLORIDE 0.9% 250 ML IVPB ONE (01:18)
[2018-01-03] MEDS: HEPARIN SODIUM,PORCINE/D5W PMX 25,000 UNIT in DEXTROSE/WATER 1 500ML.BAG IV SCH (01:28)
[2018-01-03] MEDS: NITROGLYCERIN OINT 1 INCH/GM PACKET TOPICAL SCH ×2 (05:50→12:22)
[2018-01-03 08:56] LABS: Creatine Kinase MB 0.4 ng/mL (0.0-2.4); Troponin I 0.029 ng/mL (0.000-0.034)
[2018-01-03] MEDS: HEPARIN SODIUM,PORCINE 5,000 UNIT/ML 1 ML VIAL IV PRN (09:28)
[2018-01-03] MEDS: DRONABINOL 2.5 MG CAP PO SCH ×2 (09:37→17:03)
[2018-01-03] MEDS: PIPERACILLIN-TAZOBACTAM 3.375 GM in DEXTROSE/WATER 1 50ML.BAG IVPB SCH ×3 (09:37→23:53)
--- NOTE | 2018-01-03 10:08 | NM ---
EXAMINATION TYPE: NM pul vent and perfuse DATE OF EXAM: 01/03/2018 COMPARISON: Chest x-ray same date and prior nuclear medicine ventilation/perfusion scan 07/26/2015, c hest CT 07/16/2017 HISTORY: Thoracic pain, difficulty breathing TECHNIQUE: Utilizing inhalation of 67.8 mCi Tc 99m DTPA aerosol and intravenous injection of 5.4 mCi of Tc 99m MAA, ventilation and perfusion images are acquired post injection in multiple projections. FINDINGS: Findings similar to prior exam. Interval development of the matched defect within the left lower lobe , matching chest x-ray abnormality. No ventilation/perfusion mismatches. Overall perfusion somewhat b alfreda uptake than ventilation. IMPRESSION: Intermediate probability for pulmonary embolism.
[2018-01-03 12:01] LABS: Creatine Kinase MB 0.4 ng/mL (0.0-2.4); Troponin I 0.025 ng/mL (0.000-0.034)
[2018-01-03] MEDS: Acetaminophen-Codeine 300-30mg TAB PO PRN ×2 (12:20→17:10)
--- NOTE | 2018-01-03 12:22 | P.HPIM ---
History of Present Illness H&P Date: 01/03/18 Chief Complaint: SOB and pain in the upper back Mr. Mackay is an 82-year-old male with a past medical history of left lung cancer, COPD on 3-4 L of oxygen, GERD, hypertension, hyperlipidemia, prostate disorder coming into the hospital with a chief complaint of bilateral upper back and neck pain for the past 1 day. Patient denies having any chest pain or difficulty in breathing. Patient has history of lung cancer and was currently in hospice regards to this. He also complains of pain in his right leg that has been going on for the past 1 month. He denies having any swelling. 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 At baseline patient is pretty much bedbound and he has hospice nurse that comes every day. He has lung cancer status post radiation therapy initially resolved but then reoccurred. Eventually they have elected not to undergo any further care as they thought he could not handle any more therapies due to his age and multiple medical comorbidities. But yesterday he came in with the above complaints. The patient had elevated d- dimer levels and as he has ALLERGIES to iodinated a VQ scan was done which was showing intermediate probability for PE. The patient has been initiated on IV heparin and also empirically started on vancomycin and Zosyn . At this point we really unclear what his thought processes regarding continuation of treatment when he was already enrolled in hospice. The case making machine operator did speak with his daughter over the phone, she said she is not the legal guardian and we have to go by what Mr. Richardson wants to be done for him. After having a discussion with him regarding his condition the patient states that he wants everything to be done for him, to get better. The patient denies having any headaches blurring of vision loss of consciousness. No abdominal pain nausea vomiting. Patient denies having any dysuria. No slurring of speech. Patient has generalized weakness and is bed bound for most part. Review of Systems All review of systems are done and negative except for the ones mentioned above. 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 History of Any Multi-Drug Resistant Organisms: None Reported Past Surgical History: Appendectomy, Tonsillectomy Additional Past Surgical History / Comment(s): AAA, NAYAN ROTATOR CUFF,NAYAN THUMB SX, LARYNGOSCOPY FOR HORSENESS,LT VOCAL CORD WEAKNESS.NEEDLE ASPIRATION LT LUNG MASS WAS POSITIVE FOR CANCER -PT STATED HE COMPLETED 5 RADIATION TREATMENTS. Past Anesthesia/Blood Transfusion Reactions: No Reported Reaction Additional Past Anesthesia/Blood Transfusion Reaction / Comment(s): blood transfusion Past Psychological History: No Psychological Hx Reported Additional Psychological History / Comment(s): pt currently lives at [place]- [facility]. able to care for self cook/bath PTS DAUGHTER are HELPING OUT.. uses electric w/c -no longer drives. Smoking Status: Former smoker Past Alcohol Use History: None Reported Additional Past Alcohol Use History / Comment(s): STARTED SMOKING AT AGE 18 QUIT 2006 SMOKED 2 PPD Past Drug Use History: None Reported - Past Family History Father Family Medical History: Coronary Artery Disease (CAD) Mother Additional Family Medical History / Comment(s): ANEMIA Medications and Allergies Home Medications Medication Instructions Recorded Confirmed Type Ipratropium-Albuterol Nebulize 3 ml INHALATION RT-QID PRN 09/20/17 01/03/18 Rx [Duoneb 0.5 mg-3 mg/3 ml Soln] ampul.neb Acetaminophen-Codeine 300-30mg 1 tab PO Q4H PRN #20 tablet 11/07/17 01/03/18 Rx [Tylenol #3] Dronabinol [Marinol] 2.5 mg PO BID 11/07/17 01/03/18 History Protein Tab 1 tab PO DAILY 11/07/17 01/03/18 History LORazepam [Ativan] 0.5 mg PO BID PRN 01/03/18 01/03/18 History Allergies Allergy/AdvReac Type Severity Reaction Status Date / Time ceftriaxone sodium Allergy Itching Verified 01/03/18 09:08 [From Rocephin] Iodinated Contrast- Oral and Allergy Anaphylaxis Verified 01/03/18 09:08 IV Dye [Iodinated Contrast Media - IV Dye] levofloxacin Allergy Itching Verified 01/03/18 09:08 Physical Exam Vitals: Vital Signs Temp Pulse Pulse Resp BP BP Pulse Ox 01/03/18 07:38 99.1 F 94 18 105/66 99 01/03/18 03:38 99 F 01/03/18 03:01 100.4 F H 102 H 18 113/64 96 01/03/18 01:18 108 H 18 130/70 98 01/03/18 01:12 96 01/03/18 00:49 113 H 01/03/18 00:43 113 H 01/02/18 23:19 99.0 F 120 H 20 160/91 91 L Intake and Output 01/02/18 01/03/18 01/03/18 22:59 06:59 14:59 Intake Total 550 119.18 Output Total 200 Balance 350 119.18 Intake: Intake, IV Titration 550 119.18 Amount Heparin Sodium,Porcine/ 119.18 D5w Pmx 25,000 unit In Dextrose/Water 1 500ml. bag @ 18 UNITS/KG/HR 15. 15 mls/hr IV .Q24H [facility] Rx #:[id number] Sodium Chloride 0.9% 1, 300 000 ml @ 100 mls/hr IV . Q10H [facility] Rx#:[id number] Vancomycin 750 mg In 250 Sodium Chloride 0.9% 250 ml @ 125 mls/hr IVPB ONCE ONE Rx#:[id number] Output: Urine 200 Other: Voiding Method Indwelling Catheter Indwelling Catheter Weight 42.093 kg 42.093 kg GENERAL EXAM GENERAL: The patient appears malnourished and cachectic. EYES: Pupils are round and reactive. Extraocular movements are intact. No conjunctival / lid redness or swelling. ENT: No external evidence of injury, swelling, or ecchymosis. Airway is patent. Throat is clear. NECK: There is minimal tenderness present to the lower neck bilaterally. No swelling or evidence of injury. No subcutaneous emphysema. Trachea is midline. No thyroid mass. HEART: Regular rate and rhythm. Good peripheral pulses. LUNGS/CHEST: Breath sounds clear and equal bilaterally. No rales, rhonchi, or wheezes. No ecchymosis, subcutaneous emphysema, or tenderness. ABDOMEN: Abdomen soft without tenderness. No palpable masses or organomegaly. No peritoneal signs. No abdominal wall swelling or ecchymosis. EXTREMITIES: No extremity tenderness. Normal muscle tone and function. There is minimal tenderness present to the bilateral upper thoracic musculature. NEUROLOGIC: Sensation is grossly intact. Cranial nerve exam reveals face is symmetrical, tongue is midline, speech is clear. SKIN: No abrasions or ecchymosis is noted. No induration or masses noted. PSYCHIATRIC: Alert and oriented. Appropriate behavior and judgment. Results CBC & Chem 7: 01/02/18 23:56 01/02/18 23:56 Labs: Abnormal Lab Results - Last 24 Hours (Table) 01/02/18 01/02/18 01/02/18 Range/Units 23:56 23:56 23:56 RBC 3.41 L (4.30-5.90) m/uL Hgb 11.0 L (13.0-17.5) gm/dL Hct 35.1 L (39.0-53.0) % MCV 103.0 H (80.0-100.0) fL RDW 15.6 H (11.5-15.5) % APTT (22.0-30.0) sec D-Dimer (<0.60) mg/L FEU Potassium 5.3 H (3.5-5.1) mmol/L BUN 54 H (9-20) mg/dL Glucose 117 H (74-99) mg/dL Total Creatine Kinase 27 L (55-170) U/L 01/02/1818 01/03/18 Range/Units 23:56 07:49 07:49 RBC (4.30-5.90) m/uL Hgb (13.0-17.5) gm/dL Hct (39.0-53.0) % MCV (80.0-100.0) fL RDW (11.5-15.5) % APTT 19.1 L 37.1 H (22.0-30.0) sec D-Dimer 3.41 H (<0.60) mg/L FEU Potassium (3.5-5.1) mmol/L BUN (9-20) mg/dL Glucose (74-99) mg/dL Total Creatine Kinase 42 L (55-170) U/L Thrombosis Risk Factor Assmnt - Choose All That Apply Any of the Below Risk Factors Present?: Yes Each Factor Represents 1 point: Serious lung disease incl. pneumonia (< 1month) Each Risk Factor Represents 3 Points: Age 75 years or older, History of DVT/PE Thrombosis Risk Factor Assessment Total Risk Factor Score: 7 Thrombosis Risk Factor Assessment Level: High Risk Assessment and Plan Assessment: Thoracic back pain -patient with history of lung cancer, elevated d-dimer, intermediate probability of PE on VQ scan -patient has been started on IV heparin which will be continued History of lung cancer Severe COPD - with mild difficulty in breathing-empirically started on Vanco and Zosyn Hyperkalemia with slight hemolysis Anemia most likely related to his malignancy Protein calorie malnutrition BMI 15.4 Cachectic Plan: After having a very prolonged discussion with the patient and that he wants everything to be done will continue with IV heparin, Zosyn and vancomycin. Continue with breathing treatments and his home medications. But overall prognosis is very poor.
[2018-01-03] MEDS: IPRATROPIUM-ALBUTEROL 3 ML NEB INHALATION PRN (12:56)
[2018-01-04] MEDS: HEPARIN SODIUM,PORCINE/D5W PMX 25,000 UNIT in DEXTROSE/WATER 1 500ML.BAG IV SCH (06:50)
[2018-01-04 08:17] LABS: Basophils % (A) 0 %; Eosinophils # (A) 0.1 k/uL (0-0.7); Eosinophils % (A) 3 %; HCT 28.6 % (39.0-53.0); Hypochromasia Slight; Lymphocytes # (A) 0.6 k/uL (1.0-4.8); Lymphocytes % (A) 13 %; MCH 32.9 pg (25.0-35.0); MCHC 31.6 g/dL (31.0-37.0); MCV 103.9 fL (80.0-100.0); Macrocytosis Moderate; Mean Platelet Volume 8.5; Monocytes # (A) 0.2 k/uL (0-1.0); Monocytes % (A) 4 %; Neutrophils # (A) 3.5 k/uL (1.3-7.7); Neutrophils % (A) 79 %; Platelet Count 133 k/uL (150-450); RBC 2.75 m/uL (4.30-5.90); RDW 15.7 % (11.5-15.5); WBC 4.5 k/uL (3.8-10.6)
[2018-01-04 08:26] LABS: Potassium 4.4 mmol/L (3.5-5.1)
[2018-01-04] MEDS: PIPERACILLIN-TAZOBACTAM 3.375 GM in DEXTROSE/WATER 1 50ML.BAG IVPB SCH ×3 (08:59→23:35)
[2018-01-04] MEDS: ASPIRIN 325 MG TAB PO SCH (08:59)
[2018-01-04] MEDS: DRONABINOL 2.5 MG CAP PO SCH ×2 (09:09→16:29)
[2018-01-04] MEDS: HEPARIN SODIUM,PORCINE 5,000 UNIT/ML 1 ML VIAL IV PRN (09:09)
[2018-01-04] MEDS: Acetaminophen-Codeine 300-30mg TAB PO PRN (09:10)
[2018-01-04] MEDS: IPRATROPIUM-ALBUTEROL 3 ML NEB INHALATION PRN (11:51)
--- NOTE | 2018-01-04 15:25 | CDI ---
Last Revision, July 2017 Documentation Clarification Form Date: 01/04/2018 12:00:00 AM From: eLola Dumont RN, CCDS Admit Date: 01/03/2018 1:12:00 AM Patient Name: Sly Richardson V Visit Number: [id number] Discharge Date: ATTENTION: The Clinical Documentation Specialists (CDI) and [facility] Coding Staff appreciate your assistance in clarifying documentation. Please respond to the clarification below the line at the bottom and electronically sign. The CDI & [facility] Coding staff will review the response and follow-up if needed. Please note: Queries are made part of the Legal Health Record. If you have any questions, please contact the author of this message via ITS. Dr. Nupur Daniel Protein calorie malnutrition has been documented in your H&P. History/Risk Factors: Lung cancer, COPD, Anemia, Hypertension, Former smoker, Clinical Indicators: Present with complaints of thoracic back pain. Per your H& P patient appears malnourished and cachectic. Patient has generalized weakness and is bed bound for the most part. Labs: Albumin 3.9, Total Protein 7.3 Current BMI: 17.1 Insufficient energy intake: Decreased intake for 5.5 months Decreased hand felt cementer strength: generalized weakness Treatment: Dietary Consult: Yes Supplements: Ensure Enlive TID Lab monitoring: In your professional opinion, can you please further clarify if these findings signify one of the following conditions? Mild Protein-Calorie Malnutrition Moderate Protein-Calorie Malnutrition Severe Protein-Calorie Malnutrition Other condition, please specify Unable to determine Please continue to document in your progress notes and discharge summary in order to capture severity of illness and risk of mortality. Include clinical findings that support your diagnosis. MTDD
--- NOTE | 2018-01-04 15:48 | CDI ---
Last Revision, July 2017 Documentation Clarification Form Date: 01/04/2018 12:00:00 AM From: Leola Dumont RN, CCDS Admit Date: 01/03/2018 1:12:00 AM Patient Name: Sly Richardson V Visit Number: [id number] Discharge Date: ATTENTION: The Clinical Documentation Specialists (CDI) and [facility] Coding Staff appreciate your assistance in clarifying documentation. Please respond to the clarification below the line at the bottom and electronically sign. The CDI & [facility] Coding staff will review the response and follow-up if needed. Please note: Queries are made part of the Legal Health Record. If you have any questions, please contact the author of this message via ITS. Dr. Tom Quintanilla The patient presented with the a past medical history of lung cancer History/Risk Factors: Lung cancer, Hypertension, COPD, Heart failure Tobacco use: Former smoker Home oxygen: 3 /Liters NC Clinical Indicators: Present with complaints of bilateral upper back and lower neck pain. He is maintained on home O2 3/L NC. Vital signs on admission 160/91 120 20 99.0 91 % 2/L NC Lung/Breathing assessment: Chest x-ray: irregular consolidation in the left mid ling consistent with treated lung cancer. There is probable new infiltrate and pleural fluid in the right lower lobe compared to old exam. No gross heart failure. Possible PE does exist. Lungs: Breath sounds clear and equal bilaterally. Hypoxia ( per ED evaluation) Treatment: Breathing tx: Duoneb Inhalation QID/PRN Monitor O2 Sat's (titrate O2) In your professional opinion, can you please clarify if these findings signify one of the following conditions? Acuity: Acute Chronic Acute on Chronic Specificity: Respiratory Failure, further specify (if known): With hypercapnia? With hypoxia? Unable to determine Other, specify Please continue to document in your progress notes and discharge summary in order to capture severity of illness and risk of mortality. Include clinical findings that support your diagnosis. No respiratory failure MTDD
--- NOTE | 2018-01-04 15:54 | PN ---
PROGRESS NOTE I am covering for Dr. Junior. DATE OF SERVICE: 01/04/2018 This 82-year-old gentleman with a past medical history of long-standing lung cancer was complaining of pain which is in the left shoulder and left upper back. The patient underwent a V/Q scan which showed intermediate probability of pulmonary embolism. Patient has been started on IV heparin at this time. The pain is slightly better. Patient is on IV heparin, as mentioned early. There is no history of fever, rigor or chills. No history of headache, loss of consciousness or seizures. A chest x-ray done on admission showed irregular consolidation in the left mid lung consistent with treated lung cancer. Past medical history reviewed. REVIEW OF SYSTEMS: CARDIOVASCULAR SYSTEM: No angina, palpitations. RESPIRATORY SYSTEM: As mentioned earlier. GI: As mentioned earlier. : No dysuria or retention. NERVOUS SYSTEM: No numbness, weakness.. CURRENT MEDICATIONS: Reviewed. They include: 1. Tylenol #3. 2. DuoNeb q.i.d. and p.r.n. 3. Aspirin 325 mg p.o. daily. 4. Marinol 2.5 mg before meals b.i.d. 5. Heparin IV. 6. Morphine sulfate p.r.n. 7. Zosyn 3.375 IV q.8. 8. Vancomycin. PHYSICAL EXAMINATION: Patient is alert and oriented x3. Pulse is 73, blood pressure 102/65, respiration 16, temperature 99.6, pulse ox 97% on 2 L. HEENT: Conjunctivae normal. NECK: No jugular venous distention. CARDIOVASCULAR SYSTEM: S1, S2 muffled. RESPIRATORY SYSTEM: Breath sounds diminished at the bases. Bilateral scattered rhonchi and crackles. ABDOMEN: Soft, non-tender. No mass palpable. LEGS: No edema. No swelling. NERVOUS SYSTEM: Higher functions as mentioned earlier. Moves all 4 limbs. No focal motor or sensory deficit. LYMPHATICS: No lymph node palpable in neck, axillae or groin. SKIN: No ulcer, rash, bleeding. LABS: WBC 4.5, hemoglobin 9. Creatinine 1.40. ASSESSMENT: 1. Upper chest pain, possibly pulmonary embolism with intermediate probability of pulmonary embolism on the V/Q scan, on IV heparin. 2. History of lung cancer, left lung. 3. History of chronic obstructive pulmonary disease. 4. Hyperkalemia. 5. Anemia. 6. Protein-calorie malnutrition, mild to moderate. RECOMMENDATIONS AND DISCUSSION: I recommend to continue current medication, continue symptomatic treatment. Continue with IV heparin. Repeat labs. Otherwise I would also recommend hematology/oncology evaluation. Guarded prognosis because of multiple complex medical issues. Further recommendations to follow. PETROS / EMANI: [id number] /
--- NOTE | 2018-01-04 16:18 | CDI ---
Last Revision, July 2017 Documentation Clarification Form Date: 01/04/2018 12:00:00 AM From: Leola Dumont RN, CCDS Admit Date: 01/03/2018 1:12:00 AM Patient Name: Sly Richardson V Visit Number: [id number] Discharge Date: ATTENTION: The Clinical Documentation Specialists (CDI) and [facility] Coding Staff appreciate your assistance in clarifying documentation. Please respond to the clarification below the line at the bottom and electronically sign. The CDI & [facility] Coding staff will review the response and follow-up if needed. Please note: Queries are made part of the Legal Health Record. If you have any questions, please contact the author of this message via ITS. Dr. Tom Quintanilla Pneumonia was documented in the Emergency Department note. History/Risk Factors: Lung Cancer, Hypertension, COPD, Pneumonia, Respiratory failure, Home O2 3/L NC, Kidney disease stage III, Former smoker Clinical Indicators: ED Note: He will be covered with antibiotics for possible pneumonia WBC/Left shift: 8.7 Vital signs: 160/91 120 20 99.0 91 % 2/L NC Chest x-ray: Irregular consolidation in the left mid lung consistent with treated lung cancer. There is probable new infiltrate and pleural fluid in the right lower lobe compared to old exam. Lung/Breathing assessment: Breath sounds clear and equal bilaterally Treatment: Antibiotics: Zosyn IV, Vancomycin IV O2 3/L NC Breathing Tx: Duoneb QID PRN Monitor O2 Sat's (Titrate) In order to capture the severity of condition, please clarify if the condition signifies and you are treating for: Pneumonia ruled out Pneumonia ruled in ( specify type: Bacterial Pneumonia, specify causal organism (if known) Gram Negative Pneumonia Due to Strep Due to Staph Due to E. Coli Other bacteria (please specify) Healthcare Acquired Pneumonia/Pneumonia, unspecified Other, please specify Unable to determine Please continue to document in your progress notes and discharge summary in order to capture severity of illness and risk of mortality. Include clinical findings that support your diagnosis. NO pneumonia MTDD
--- NOTE | 2018-01-04 18:02 | P.CONS ---
History of Present Illness - Reason for Consult Consult date: 01/04/18 PE Requesting physician: Tom Quintanilla - Chief Complaint back pain and SOB - History of Present Illness mister Heart is an 82-year-old male patient with a history of lung cancer, status post treatment, does not follow with an oncologist,no acute evidence to suggest We have been asked to see patient for a VQ scan stating intermediate probability for PE. Patient states that he had left upper back pain radiating down to his ribs x 1 days, felt like pain was in the lungs, worse with breathing , he denied fevers, nausea, recent illnesses, changes in bowel habits. Patient denies any history of bleeding, no GI bleeds, he had a hemorrhoid once, he states decreased mobility at home-he does live alone, multiple recent falls. Patient states being on hospice prior to admission Review of Systems focused review of systems as stated in HPI Past Medical History Past Medical History: Cancer, Heart Failure, COPD, Deep Vein Thrombosis (DVT), GERD/Reflux, Hyperlipidemia, Hypertension, Pneumonia, Prostate Disorder Additional Past Medical History / Comment(s): HOME O2 3 LITERS arthritis, BRONCHITIS,resp failure,KIDNEY DISEASE STAGE 111 (pt denies this), anemia, cervical radiculopathy/djd, SMALL HIATAL HERNIA(SEEN ON CAT SCAN OF CHEST) LLL MASS -needle bx confirmed lung ca. History of Any Multi-Drug Resistant Organisms: None Reported Past Surgical History: Appendectomy, Tonsillectomy Additional Past Surgical History / Comment(s): AAA, NAYAN ROTATOR CUFF,NAYAN THUMB SX, LARYNGOSCOPY FOR HORSENESS,LT VOCAL CORD WEAKNESS.NEEDLE ASPIRATION LT LUNG MASS WAS POSITIVE FOR CANCER -PT STATED HE COMPLETED 5 RADIATION TREATMENTS. Past Anesthesia/Blood Transfusion Reactions: No Reported Reaction Additional Past Anesthesia/Blood Transfusion Reaction / Comm: blood transfusion Past Psychological History: No Psychological Hx Reported Additional Psychological History / Comment(s): pt currently lives at [place]- [facility]. able to care for self cook/bath PTS DAUGHTER are HELPING OUT.. uses electric w/c -no longer drives. Smoking Status: Former smoker Past Alcohol Use History: None Reported Additional Past Alcohol Use History / Comment(s): STARTED SMOKING AT AGE 18 QUIT 2006 SMOKED 2 PPD Past Drug Use History: None Reported - Past Family History Father Family Medical History: Coronary Artery Disease (CAD) Mother Additional Family Medical History / Comment(s): ANEMIA Medications and Allergies Home Medications Medication Instructions Recorded Confirmed Type Ipratropium-Albuterol Nebulize 3 ml INHALATION RT-QID PRN 09/20/17 01/03/18 Rx [Duoneb 0.5 mg-3 mg/3 ml Soln] ampul.neb Acetaminophen-Codeine 300-30mg 1 tab PO Q4H PRN #20 tablet 11/07/17 01/03/18 Rx [Tylenol #3] Dronabinol [Marinol] 2.5 mg PO BID 11/07/17 01/03/18 History Protein Tab 1 tab PO DAILY 11/07/17 01/03/18 History LORazepam [Ativan] 0.5 mg PO BID PRN 01/03/18 01/03/18 History Allergies Allergy/AdvReac Type Severity Reaction Status Date / Time ceftriaxone sodium Allergy Itching Verified 01/03/18 09:08 [From Rocephin] Iodinated Contrast- Oral and Allergy Anaphylaxis Verified 01/03/18 09:08 IV Dye [Iodinated Contrast Media - IV Dye] levofloxacin Allergy Itching Verified 01/03/18 09:08 Physical Exam Vitals: Vital Signs Temp Pulse Pulse Resp BP BP Pulse Ox 01/04/18 14:47 98.0 F 82 16 88/55 88/50 99 01/04/18 12:00 94 16 01/04/18 11:51 92 16 01/04/18 05:55 99.6 F 73 16 102/65 97 01/03/18 23:50 18 01/03/18 21:02 98.4 F 96 18 93/55 95 Intake and Output 01/04/18 01/04/18 01/04/18 06:59 14:59 22:59 Intake Total 250.563 89.509 141.33 Output Total 600 400 Balance -349.437 89.509 -258.67 Intake: Intake, IV Titration 250.563 89.509 141.33 Amount Heparin Sodium,Porcine/ 250.563 39.509 141.33 D5w Pmx 25,000 unit In Dextrose/Water 1 500ml. bag @ 18 UNITS/KG/HR 15. 15 mls/hr IV .Q24H [facility] Rx #:[id number] Piperacillin-Tazobactam 3 50 .375 gm In Dextrose/Water 1 50ml.bag @ 12.5 mls/hr IVPB Q8HR [facility] Rx#: [id number] Output: Urine 600 400 Uretheral (Akins) 400 Other: Voiding Method Indwelling Catheter Indwelling Catheter Indwelling Catheter Weight 46.5 kg - Constitutional General appearance: cooperative, no acute distress, thin - EENT Eyes: anicteric sclerae, EOMI - Neck Neck: no lymphadenopathy - Respiratory Respiratory: bilateral: diminished - Cardiovascular Heart sounds: normal: S1, S2 leg Peripheral Edema: bilateral: None - Gastrointestinal General gastrointestinal: no absent bowel sounds, no decreased bowel sounds, no distended, no hepatomegaly, no hyperactive bowel sounds, normal bowel sounds, no organomegaly, no rigid, scaphoid, soft, no splenomegaly, no tenderness, no umbilical hernia, no ventral hernia - Neurologic Neurologic: CNII-XII intact - Musculoskeletal Musculoskeletal: generalized weakness, strength equal bilaterally - Psychiatric Psychiatric: A&O x's 3, appropriate affect, intact judgment & insight Results CBC & Chem 7: 01/04/18 07:33 01/04/18 07:33 Labs: Abnormal Lab Results - Last 24 Hours (Table) 01/04/18 01/04/18 01/04/18 Range/Units 07:33 07:33 07:33 RBC 2.75 L (4.30-5.90) m/uL Hgb 9.0 L D (13.0-17.5) gm/dL Hct 28.6 L (39.0-53.0) % MCV 103.9 H (80.0-100.0) fL RDW 15.7 H (11.5-15.5) % Plt Count 133 L (150-450) k/uL Lymphocytes # 0.6 L (1.0-4.8) k/uL APTT 43.6 H (22.0-30.0) sec BUN 44 H (9-20) mg/dL Creatinine 1.40 H (0.66-1.25) mg/dL Glucose 110 H (74-99) mg/dL 01/04/18 Range/Units 14:53 RBC (4.30-5.90) m/uL Hgb (13.0-17.5) gm/dL Hct (39.0-53.0) % MCV (80.0-100.0) fL RDW (11.5-15.5) % Plt Count (150-450) k/uL Lymphocytes # (1.0-4.8) k/uL APTT 55.2 H (22.0-30.0) sec BUN (9-20) mg/dL Creatinine (0.66-1.25) mg/dL Glucose (74-99) mg/dL Microbiology - Last 24 Hours (Table) 01/02/18 23:56 Blood Culture - Preliminary Blood No Growth after 24 hours Comments: V/Q scan report reviewed Assessment and Plan (1) Pulmonary embolism Narrative/Plan: V/Q reads intermediate probability for pulmonary embolism. Patient does not get around as much as he used to, he states falls, he has a history of malignancy but does not follow with an oncologist-EARL progression. Possibly multifactorial provoked/unprovoked clot. Bilateral lower extremity Doppler ordered for baseline. Would recommend minimal duration of anticoagulation-6 months to one year based on patient's symptoms- as patient is at high risk for falls and bleeds. Current Visit: Yes Status: Acute Priority: High Code(s): I26.99 - OTHER PULMONARY EMBOLISM WITHOUT ACUTE COR PULMONALE SNOMED Code(s): 40614221 (2) History of lung cancer Narrative/Plan: No evidence at this time to suggest disease progression Current Visit: No Status: Chronic Priority: Medium Code(s): Z85.118 - PERSONAL HISTORY OF MALIGNANT NEOPLASM OF BRONCHUS AND LUNG SNOMED Code(s): 632713765
[2018-01-04] MEDS: APIXABAN 2.5 MG TABLET PO SCH (19:41)
--- NOTE | 2018-01-04 20:01 | US ---
EXAMINATION TYPE: US venous doppler duplex LE DATE OF EXAM: 01/04/2018 7:39 PM COMPARISON: US 2014 CLINICAL HISTORY: PE, baseline imaging. PE, difficulty walking, history of DVT, patient on blood thin ners, exam done portable. SIDE PERFORMED: Bilateral TECHNIQUE: The lower extremity deep venous system is examined utilizing real time linear array sonog zachery with graded compression, doppler sonography and color-flow sonography. VESSELS IMAGED: External Iliac Vein (EIV) Common Femoral Vein Deep Femoral Vein Greater Saphenous Vein * Femoral Vein Popliteal Vein Small Saphenous Vein * Proximal Calf Veins (* superficial vessels) Right Leg: Positive for DVT from CFV through popliteal vein, appears to be probable non occluding ch ronic thrombus, cannot exclude acute Left Leg: Positive for DVT from EIV through popliteal vein, appears to be probable non occluding chr onic thrombus, cannot exclude acute IMPRESSION: There is demonstration of bilateral chronic deep venous thrombosis.
[2018-01-05] MEDS: VANCOMYCIN 750 MG in SODIUM CHLORIDE 0.9% 250 ML IVPB SCH (06:15)
[2018-01-05 07:51] LABS: Basophils % (A) 0 %; Eosinophils # (A) 0.3 k/uL (0-0.7); Eosinophils % (A) 8 %; HCT 24.3 % (39.0-53.0); HGB 7.7 gm/dL (13.0-17.5); Lymphocytes # (A) 0.5 k/uL (1.0-4.8); Lymphocytes % (A) 14 %; MCH 32.4 pg (25.0-35.0); MCHC 31.5 g/dL (31.0-37.0); MCV 102.7 fL (80.0-100.0); Macrocytosis Slight; Mean Platelet Volume 9.3; Monocytes # (A) 0.2 k/uL (0-1.0); Monocytes % (A) 5 %; Neutrophils # (A) 2.7 k/uL (1.3-7.7); Neutrophils % (A) 71 %; Platelet Count 122 k/uL (150-450); RBC 2.36 m/uL (4.30-5.90); RDW 15.6 % (11.5-15.5); WBC 3.8 k/uL (3.8-10.6)
[2018-01-05 08:01] LABS: Calcium 8.7 mg/dL (8.4-10.2); Potassium 4.4 mmol/L (3.5-5.1)
[2018-01-05] MEDS: ASPIRIN 325 MG TAB PO SCH (08:01)
[2018-01-05] MEDS: APIXABAN 2.5 MG TABLET PO SCH (08:01)
[2018-01-05] MEDS: DRONABINOL 2.5 MG CAP PO SCH ×2 (08:07→17:59)
[2018-01-05] MEDS: PIPERACILLIN-TAZOBACTAM 3.375 GM in DEXTROSE/WATER 1 50ML.BAG IVPB SCH ×2 (08:08→17:59)
[2018-01-05] MEDS: IPRATROPIUM-ALBUTEROL 3 ML NEB INHALATION PRN ×2 (11:11→20:08)
[2018-01-05] MEDS: APIXABAN 5 MG TAB PO SCH ×2 (13:05→20:51)
--- NOTE | 2018-01-05 17:31 | PN ---
PROGRESS NOTE DATE OF SERVICE: 01/05/2018 This 82-year-old gentleman who was admitted with chest pain possibly had pulmonary embolism. Ultrasound also showed old DVT. Patient also had some generalized tiredness and weakness. ECF rehab is being planned. No chest pain. No palpitations. No fever. On exam, alert and oriented x2. Pulse 84, blood pressure 108/66, respiration 18, temperature 98.9, pulse ox 98% on 3 L. HEENT: Conjunctivae normal. Oral mucosa moist. NECK: No jugular venous distention. No carotid bruit. No lymph node enlargement. CARDIOVASCULAR SYSTEM: S1, S2 muffled. RESPIRATORY SYSTEM: Breath sounds diminished at the bases. A few scattered rhonchi. No crackles. ABDOMEN: Soft, non-tender. No mass palpable. LEGS: No edema. No swelling. NERVOUS SYSTEM: No focal deficit. LABS: WBC 3.8, hemoglobin 7.7, creatinine 1.37. ASSESSMENT: 1. Upper chest pain, possibly pulmonary embolism with intermediate possibility of pulmonary embolism on V/Q scan, on IV heparin. 2. Bilateral chronic deep venous thrombosis of the legs. 3. History of lung cancer, left lung. 4. History of chronic obstructive pulmonary disease. 5. Hyperkalemia. 6. Anemia. 7. Protein-calorie malnutrition, mild to moderate. 8. Gait dysfunction. RECOMMENDATIONS AND DISCUSSION: I recommend to continue current medication, continue symptomatic treatment. I recommend PT OT evaluation, possible ECF rehab. Otherwise, continue with Eliquis per recommendation of Hematology/Oncology. Symptomatic treatment. Further recommendations to follow. See orders for further details. MMODL / IJN: [id number] /
[2018-01-05] MEDS: Acetaminophen-Codeine 300-30mg TAB PO PRN (20:50)
[2018-01-06] MEDS: PIPERACILLIN-TAZOBACTAM 3.375 GM in DEXTROSE/WATER 1 50ML.BAG IVPB SCH ×4 (01:08→23:21)
[2018-01-06 07:30] LABS: Basophils % (A) 0 %; Eosinophils # (A) 0.3 k/uL (0-0.7); Eosinophils % (A) 11 %; HCT 23.8 % (39.0-53.0); HGB 7.5 gm/dL (13.0-17.5); Hypochromasia Slight; Lymphocytes # (A) 0.5 k/uL (1.0-4.8); Lymphocytes % (A) 19 %; MCH 32.5 pg (25.0-35.0); MCHC 31.7 g/dL (31.0-37.0); MCV 102.8 fL (80.0-100.0); Macrocytosis Slight; Mean Platelet Volume 10.2; Monocytes # (A) 0.2 k/uL (0-1.0); Monocytes % (A) 7 %; Neutrophils # (A) 1.7 k/uL (1.3-7.7); Neutrophils % (A) 61 %; Platelet Count 118 k/uL (150-450); RBC 2.31 m/uL (4.30-5.90); RDW 15.5 % (11.5-15.5); WBC 2.8 k/uL (3.8-10.6)
[2018-01-06 07:42] LABS: Calcium 8.8 mg/dL (8.4-10.2)
[2018-01-06] MEDS: ASPIRIN 325 MG TAB PO SCH (07:49)
[2018-01-06] MEDS: APIXABAN 5 MG TAB PO SCH ×2 (07:49→20:14)
[2018-01-06] MEDS: DRONABINOL 2.5 MG CAP PO SCH ×2 (07:49→16:45)
[2018-01-06 11:18] VITALS: BMI 16.5
[2018-01-06] MEDS: Acetaminophen-Codeine 300-30mg TAB PO PRN ×2 (14:33→20:16)
--- NOTE | 2018-01-06 15:27 | P.CN ---
Psychiatric Consult - . Consult date: 01/06/18 Consult:: IDENTIFYING DATA: Mr. Reed is 82-year-old male who [facility] the [facility] with the complaint of an abrupt onset of upper back and lower neck pain. His history is significant for left lung cancer, COPD, GERD, hypertension, hyperlipidemia, benign prostatic hypertrophy. The hospitalist submitted a consult to psychiatry service to evaluate the patient's medical decision capacity. HISTORY OF PRESENT ILLNESS: I reviewed the medical record and interviewed the patient. He stated that he came to the hospital because she developed pain in his neck and shoulder. The doctors told him that he developed "another blood clot". He suspected that he had experienced a "blood clot" because he had similar experience, the sudden onset of acute pain, when he developed a "blood clot" in his leg. He explained that the doctor initially recommended treatment with heparin but his now taking a "blood thinner pill" (Eliquis). He preferred treatment with heparin because he believes that he "did better" with heparin than the "blood thinner pill". He was able to discuss his other medical problems including history of lung cancer. He reported that the cancer on the left side was successfully treated with radiation therapy. The physicians recommended radiation treatment for cancer on the right side of his chest but that he is unable to make the appointments because he has difficulty walking. He denied feeling depressed or having thoughts of or suicide. He denied severe and persistent anxiety that interferes with his ability to function. He denied symptoms chest of panic attacks. He denied obsessions or compulsions. He denied psychotic symptoms chest shows auditory, visual or olfactory hallucinations, ideas of reference etc. He denied use of alcohol or drugs. PAST PSYCHIATRIC HISTORY: He denied a history of psychiatric or mental health treatment. PAST MEDICAL HISTORY: As above. SUBSTANCE USE HISTORY: He denied history of problems with alcohol or drugs. He is never participated in a subsidized abuse treatment program be denied a family or friends have complained him that he has a drug or alcohol problem. SOCIAL HISTORY: He was born in [facility] into a large family of 9 children. She has 5 adult children, 10 grandchildren and 10 great- grandchildren. He is in 1996. He held several semiskilled jobs until residential and his current income is Social Security. He lives alone in an apartment in [facility]. He has a trust mail clerk assist with maintaining the house and his daughter assists with shopping and meals. MENTAL STATUS EXAM: He presented as a pale elderly male who was unshaven. He made eye contact and attended to the interview. He had no prominent physical abnormalities. He had a blunted but bright facial expression. He was alert and oriented to person, place and time. He showed psychomotor retardation but no abnormal movements. I did not evaluate his gait. His speech was spontaneous with normal rate, rhythm and volume. His affect was stable and appropriate. He denied suicidal ideation or wishes. He denied homicidal ideation. He denied such depressive cognitions as hopelessness, helplessness or worthlessness. He did not expressed phobias, ideas reference, paranoid paranoid ideation or delusional thoughts. His thinking was abstract and associations were coherent and logical. He denied hallucinations did not appear to be responding to internal stimuli. Global impression of intellect is average. We completed the [facility] Orientation Memory and Concentration test. His total weighted error score was 4; total weighted error score greater than 10 is consistent with a dementia. He knew the month or the year. He was able to register memory phrase "Sam Richards, [address] [place] [address]. He was able to estimate the time (within 1 error of the actual time). He was able to count backwards from 20. He made one error when naming the months of the year reverse order (beginning with July). He missed one element when recalling the memory phrase. IMPRESSIONS: He is an 82-year-old male who presented to the Medical Center with back and shoulder pain. He has been diagnosed with a pulmonary embolism and treated with oral anticoagulation. The hospitalist consult to psychiatry regarding the patient capacity for to give informed consent. The patient was able to grasp the fundamental information t regarding his medical conditions. He acknowledged his medical condition and the need for treatment. He clearly gave his opinion regarding preferred medical options. We engaged in a rational discussion of his medical problems and recommended treatment. On mental status testing he showed no evidence of cognitive impairment. Based on information from the record and the results of our evaluation he has no impairment in his ability to give informed consent. PLAN: []. 01/06/18 14:53
[2018-01-06] MEDS: IPRATROPIUM-ALBUTEROL 3 ML NEB INHALATION PRN (16:27)
[2018-01-07 06:55] VITALS: BP 120/59; RESP 16; TEMP 98.2
[2018-01-07 07:07] LABS: Basophils % (A) 0 %; Eosinophils # (A) 0.4 k/uL (0-0.7); Eosinophils % (A) 16 %; HCT 25.5 % (39.0-53.0); HGB 8.1 gm/dL (13.0-17.5); Hypochromasia Slight; Lymphocytes # (A) 0.5 k/uL (1.0-4.8); Lymphocytes % (A) 20 %; MCH 32.5 pg (25.0-35.0); MCHC 31.8 g/dL (31.0-37.0); MCV 102.3 fL (80.0-100.0); Macrocytosis Slight; Mean Platelet Volume 9.6; Monocytes # (A) 0.2 k/uL (0-1.0); Monocytes % (A) 7 %; Neutrophils # (A) 1.4 k/uL (1.3-7.7); Neutrophils % (A) 54 %; Platelet Count 141 k/uL (150-450); RBC 2.49 m/uL (4.30-5.90); RDW 15.4 % (11.5-15.5); WBC 2.6 k/uL (3.8-10.6)
[2018-01-07] MEDS: IPRATROPIUM-ALBUTEROL 3 ML NEB INHALATION PRN ×2 (07:17→15:25)
[2018-01-07 07:22] LABS: Calcium 8.9 mg/dL (8.4-10.2)
[2018-01-07 07:29] VITALS: PULSE 70
[2018-01-07] MEDS: VANCOMYCIN 750 MG in SODIUM CHLORIDE 0.9% 250 ML IVPB SCH (07:56)
[2018-01-07] MEDS: APIXABAN 5 MG TAB PO SCH (07:56)
[2018-01-07] MEDS: DRONABINOL 2.5 MG CAP PO SCH (07:56)
[2018-01-07] MEDS: ASPIRIN 325 MG TAB PO SCH (07:56)
[2018-01-07] MEDS: Acetaminophen-Codeine 300-30mg TAB PO PRN (07:57)
--- NOTE | 2018-01-07 09:47 | CDI ---
Last Revision, July 2017 Documentation Clarification Form Date: 01/07/18 From: Leola Dumont RN, CCDS Admit Date: 01/03/2018 1:12:00 AM Patient Name: Sly Richardson V Visit Number: [id number] Discharge Date: ATTENTION: The Clinical Documentation Specialists (CDI) and [facility] Coding Staff appreciate your assistance in clarifying documentation. Please respond to the clarification below the line at the bottom and electronically sign. The CDI & [facility] Coding staff will review the response and follow-up if needed. Please note: Queries are made part of the Legal Health Record. If you have any questions, please contact the author of this message via ITS. Dr. Diogo Junior 01/05/18 documentation show creatinine 1.40, admission creatinine 1.10, 01/07/18 Creatinine 1.52 History/Risk Factors: Lung cancer, Heart failure, DVT, Hypertension, Pneumonia Home O2 3/L Clinical indicators: Admission with upper chest pain with ongoing treatment for possible pulmonary embolism. Patient also had some generalized tiredness and weakness. 01/07/18 Vital signs: 120/59 73 16 99 % 3/L NC 01/07/18 Labs: WBC 2.6, RBC 2.49, HGB 8.1, HCT 25.5, PLT 141, BUN 31, CR 1.52, GFR 42 Current Medication include: Zosyn IV, Vancomycin IV Treatment: Monitor Labs Clinical significance of diagnostic testing and treatment CANNOT be assumed or coded without physician documentation of significance if any. Please clarify what abnormal laboratory signifies: Disease process, please specify Infectious process, please specify Unable to determine Other, please specify Please continue to document in your progress notes and discharge summary in order to capture severity of illness and risk of mortality. Include clinical findings that support your diagnosis. MTDD
[2018-01-07] MEDS: PIPERACILLIN-TAZOBACTAM 3.375 GM in DEXTROSE/WATER 1 50ML.BAG IVPB SCH (09:48)
[2018-01-07] MEDS ORDERED: LORazepam 0.5 MG TAB PO PRN (11:00)
--- NOTE | 2018-01-07 13:24 | HP ---
HISTORY AND PHYSICAL BRIEF ADMITTING NOTE The patient was admitted in my absence for chest pain. He has metastatic CA of the lung and he was admitted for treatment of his pain and rule out pulmonary embolism. MMODL / PASCALEN: [id number] /
--- NOTE | 2018-01-07 14:18 | PN ---
PROGRESS NOTE DATE OF SERVICE: 01/06/2018. CHIEF COMPLAINT: Metastatic CA of the lung. HISTORY OF PRESENT ILLNESS: This gentleman is doing fairly well. Pain seems to be under reasonably good control. PHYSICAL EXAM: Chest demonstrates poor breath sounds on the left side. Cardiac exam is normal. Abdomen is soft and nontender. IMPRESSION: 1. Metastatic carcinoma of the lung. 2. Chronic obstructive pulmonary disease. 3. Intractable left chest wall pain. PLAN: Work on a discharge plan and continue analgesia. MMODL / IJN: [id number] /
--- NOTE | 2018-01-07 19:27 | DS ---
DISCHARGE SUMMARY CHIEF COMPLAINT: Chest pain, shortness of breath. HISTORY OF PRESENT ILLNESS AND PHYSICAL EXAM: Details of this man's history and physical can be found in the initial workup. LABORATORY STUDIES: While he was in the hospital, he had laboratory studies, details which can be found in the laboratory section of the chart. COURSE IN HOSPITAL: After admission he was placed on bed rest, started on intravenous fluids and worked up for pulmonary embolism and none was found. He was treated mostly for his chest wall pain which due to met the lung metastases. Discharge plan was put in place and he will be discharged to [facility] on the . FINAL DIAGNOSES: 1. Metastatic carcinoma of the lung. 2. Chronic obstructive pulmonary disease. OPERATIONS: None. CONSULTATION: Oncology. He is improved. MMODL / IJN: [id number] /
--- NOTE | 2018-01-07 20:12 | MISC ---
MISCELLANOUS REPORT QUERY: Disease process is metastatic carcinoma of the lung. MMODL / IJN: [id number] /
[2018-01-08] MEDS ORDERED: PROTEIN PO SCH (09:00)
== END 2018-01-07 17:23 | DRG 176 ==
LOC: EC 23:02 → 6SEL 01-03 01:12 → 5ONC 01-03 01:42
PROVIDERS: ADMIT Family Medicine; ATTEND Family Medicine
DX: I26.99 Other pulmonary embolism without acute cor pulmonale (principal); E44.1 Mild protein-calorie malnutrition; C79.9 Secondary malignant neoplasm of unspecified site; I82.5Z3 Chronic embolism and thrombosis of unspecified deep veins of distal lower extremity, bilateral; R64 Cachexia; Z68.1 Body mass index [BMI] 19.9 or less, adult; D64.9 Anemia, unspecified; E78.5 Hyperlipidemia, unspecified; E87.5 Hyperkalemia; I49.3 Ventricular premature depolarization; Z85.118 Personal history of other malignant neoplasm of bronchus and lung; I11.0 Hypertensive heart disease with heart failure; I50.9 Heart failure, unspecified; J44.9 Chronic obstructive pulmonary disease, unspecified; K21.9 Gastro-esophageal reflux disease without esophagitis; R29.6 Repeated falls; Z74.01 Bed confinement status; Z82.49 Family history of ischemic heart disease and other diseases of the circulatory system; Z86.711 Personal history of pulmonary embolism; Z87.891 Personal history of nicotine dependence; Z91.041 Radiographic dye allergy status; Z92.3 Personal history of irradiation; Z79.891 Long term (current) use of opiate analgesic; Z79.899 Other long term (current) drug therapy
CPT/HCPCS: 36415; 71046; 78582; 80048; 80053; 82272; 82550; 82553; 83735; 83880; 84484; 85025; 85379; 85610; 85730; 87040; 93005; 93970; 94640; 94760; 96361; 96365; 96375; 96376; 99285

== ENCOUNTER 2018-04-23 15:13 | Inpatient (IN) | payer MEDICARE, OTHER ==
[2018-04-23] MEDS ORDERED: IBUPROFEN 600 MG TAB PO STA (15:16)
[2018-04-23] MEDS ORDERED: PIPERACILLIN-TAZOBACTAM 3.375 GM in DEXTROSE/WATER 1 50ML.BAG IVPB STA (15:16)
[2018-04-23] MEDS ORDERED: ACETAMINOPHEN TAB 500 MG TAB PO STA (15:16)
--- NOTE | 2018-04-23 15:18 | ED ---
General Adult HPI - General Stated complaint: SOB Time Seen by Provider: 04/23/18 15:13 Source: RN notes reviewed - History of Present Illness Initial comments: This is an 82-year-old male who presents emergency Department with a past medical history significant for severe COPD as well as lung cancer. Dr. Daugherty. Patient comes in today because having difficulty breathing and he was satting down into the 50s and on a nonrebreather and about the 70s and on BiPAP on the way and in the 80s. Patient states the BiPAP is helping him but it's not back to normal. Patient does not know at this time if he wants to be intubated any time in the near future. Patient states she's content with the BiPAP at this time. Patient denies any headache any numbness weakness or lightheadedness or dizziness. Patient states she does have a cough and has been coughing quite a bit lately. Per the detention the patient does have a one-to-one fever. Patient denies any abdominal pain patient denies any chest pain patient denies any nausea vomiting diarrhea recently. - Related Data Home Medications Medication Instructions Recorded Confirmed LORazepam [Ativan] 0.5 mg PO BID PRN 01/03/18 04/23/18 Acetaminophen Tab [Tylenol Tab] 650 mg PO Q4H PRN 04/23/18 04/23/18 Apixaban [Eliquis] 5 mg PO DAILY@0800 04/23/18 04/23/18 Bisacodyl [Dulcolax] 10 mg RECTAL DAILY PRN 04/23/18 04/23/18 Dronabinol [Marinol] 2.5 mg PO BID@04/23/18 04/23/18 Lactobacillus Acidophilus 1 tab PO BID@04/23/18 04/23/18 [Acidophilus] Lactose-Reduced Food [Boost] 237 ml PO BID@04/23/18 04/23/18 Loperamide [Imodium] 2 mg PO DAILY PRN 04/23/18 04/23/18 Magnesium Hydroxide [Milk of 2,400 mg PO DAILY PRN 04/23/18 04/23/18 Magnesia] Menthol/Zinc Oxide [Calmoseptine 1 applic TOPICAL BID 04/23/18 04/23/18 Ointment] Na Phos,M-B/Na Phos,Di-Ba [Fleet 133 ml RECTAL ONCE PRN 04/23/18 04/23/18 Adult] Vits A and D/White Pet/Lanolin [A 1 applic TOPICAL BID 04/23/18 04/23/18 and D Ointment] guaiFENesin [guaiFENesin Oral 100 mg PO Q4H PRN 04/23/18 04/23/18 Solution] Allergies Allergy/AdvReac Type Severity Reaction Status Date / Time ceftriaxone sodium Allergy Itching Verified 04/23/18 15:44 [From Rocephin] Iodinated Contrast- Oral and Allergy Anaphylaxis Verified 04/23/18 15:44 IV Dye [Iodinated Contrast Media - IV Dye] levofloxacin Allergy Itching Verified 04/23/18 15:44 Review of Systems ROS Statement: Those systems with pertinent positive or pertinent negative responses have been documented in the HPI. ROS Other: All systems not noted in ROS Statement are negative. 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 History of Any Multi-Drug Resistant Organisms: None Reported Past Surgical History: Appendectomy, Tonsillectomy Additional Past Surgical History / Comment(s): AAA, NAAYN ROTATOR CUFF,NAYAN THUMB SX, LARYNGOSCOPY FOR HORSENESS,LT VOCAL CORD WEAKNESS.NEEDLE ASPIRATION LT LUNG MASS WAS POSITIVE FOR CANCER -PT STATED HE COMPLETED 5 RADIATION TREATMENTS. Past Anesthesia/Blood Transfusion Reactions: No Reported Reaction Additional Past Anesthesia/Blood Transfusion Reaction / Comment(s): blood transfusion Past Psychological History: No Psychological Hx Reported Additional Psychological History / Comment(s): pt currently lives at [facility]. able to care for self cook/bath PTS DAUGHTER are HELPING OUT.. uses electric w/c -no longer drives. Smoking Status: Former smoker Past Alcohol Use History: None Reported Additional Past Alcohol Use History / Comment(s): STARTED SMOKING AT AGE 18 QUIT 2006 SMOKED 2 PPD Past Drug Use History: None Reported - Past Family History Father Family Medical History: Coronary Artery Disease (CAD) Mother Additional Family Medical History / Comment(s): ANEMIA General Exam - General Exam Comments Initial Comments: GENERAL: Patient is well-developed and well-nourished. Patient is nontoxic and well- hydrated and is in moderate distress. ENT: Neck is soft and supple. No significant lymphadenopathy is noted. Oropharynx is clear. Moist mucous membranes. Neck has full range of motion without eliciting any pain. EYES: The sclera were anicteric and conjunctiva were pink and moist. Extraocular movements were intact and pupils were equal round and reactive to light. Eyelids were unremarkable. PULMONARY: Patient has crackles in the left base. Patient also is very wheezing. CARDIOVASCULAR: There is a regular rate and rhythm without any murmurs gallops or rubs. ABDOMEN: Soft and nontender with normal bowel sounds. No palpable organomegaly was noted. There is no palpable pulsatile mass. SKIN: Skin is clear with no lesions or rashes and otherwise unremarkable. NEUROLOGIC: Patient is alert and oriented x3. Cranial nerves II through XII are grossly intact. Motor and sensory are also intact. Normal speech, volume and content. Symmetrical smile. MUSCULOSKELETAL: Normal extremities with adequate strength and full range of motion. No lower extremity swelling or edema. No calf tenderness. LYMPHATICS: No significant lymphadenopathy is noted PSYCHIATRIC: Normal psychiatric evaluation. Course Vital Signs 04/23/18 04/23/18 04/23/18 15:15 15:46 15:55 Temperature 101.5 F H Pulse Rate 128 H Respiratory 30 H 32 H 30 H Rate Blood Pressure 166/78 156/78 O2 Sat by Pulse 98 95 Oximetry 04/23/18 04/23/18 04/23/18 16:02 16:41 17:00 Temperature 99.7 F H 99.7 F H Pulse Rate 152 H 145 H 124 H Respiratory 30 H 30 H 28 H Rate Blood Pressure 110/69 136/76 132/73 O2 Sat by Pulse 94 L 90 L 95 Oximetry Medical Decision Making - Medical Decision Making EKG shows sinus tachycardia at 127 bpm DE interval is 240 QRS is 102 QT interval is 294 QTC is 427. Patient's EKG shows PVCs. Chest x-ray shows no acute normalities. New. Patient has a urinary tract infection. Patient remains on BiPAP because his oxygen saturation drops when we take him off. Patient was given Zosyn when he arrived for what was thought initially to be probable pneumonia. I spoke with Dr. Daugherty he agreed to admit the patient admitted the patient. - Lab Data Result diagrams: 04/23/18 15:28 04/23/18 15:28 Lab Results 04/23/18 04/23/18 04/23/18 Range/Units 15:28 15:28 15:28 WBC 9.3 (3.8-10.6) k/uL RBC 2.92 L (4.30-5.90) m/uL Hgb 8.7 L (13.0-17.5) gm/dL Hct 29.0 L (39.0-53.0) % MCV 99.2 (80.0-100.0) fL MCH 29.8 (25.0-35.0) pg MCHC 30.0 L (31.0-37.0) g/dL RDW 17.1 H (11.5-15.5) % Plt Count 307 (150-450) k/uL Neutrophils % 76 % Lymphocytes % 17 % Monocytes % 4 % Eosinophils % 1 % Basophils % 0 % Neutrophils # 7.1 (1.3-7.7) k/uL Lymphocytes # 1.6 (1.0-4.8) k/uL Monocytes # 0.4 (0-1.0) k/uL Eosinophils # 0.0 (0-0.7) k/uL Basophils # 0.0 (0-0.2) k/uL Hypochromasia Marked Anisocytosis Slight Macrocytosis Slight PT (9.0-12.0) sec INR (<1.2) APTT (22.0-30.0) sec Sample Site ABG pH (7.35-7.45) ABG pCO2 (35-45) mmHg ABG pO2 (83-108) mmHg ABG HCO3 (21-25) mmol/L ABG Total CO2 (19-24) mmol/L ABG O2 Saturation (94-97) % ABG Base Excess mmol/L Lukasz Test FiO2 % Sodium 140 (137-145) mmol/L Potassium 4.6 (3.5-5.1) mmol/L Chloride 104 (98-107) mmol/L Carbon Dioxide 29 (22-30) mmol/L Anion Gap 7 mmol/L BUN 31 H (9-20) mg/dL Creatinine 0.98 (0.66-1.25) mg/dL Est GFR (CKD-EPI)AfAm 82 (>60 ml/min/1.73 sqM) Est GFR (CKD-EPI)NonAf 71 (>60 ml/min/1.73 sqM) Glucose 118 H (74-99) mg/dL Plasma Lactic Acid Glen (0.7-2.0) mmol/L Calcium 8.8 (8.4-10.2) mg/dL Total Bilirubin 0.5 (0.2-1.3) mg/dL AST 26 (17-59) U/L ALT 20 L (21-72) U/L Alkaline Phosphatase 71 (38-126) U/L Total Creatine Kinase 23 L (55-170) U/L CK-MB (CK-2) 0.7 (0.0-2.4) ng/mL CK-MB (CK-2) Rel Index 3.0 Troponin I <0.012 (0.000-0.034) ng/mL Total Protein 6.5 (6.3-8.2) g/dL Albumin 3.2 L (3.5-5.0) g/dL Urine Color Urine Appearance (Clear) Urine pH (5.0-8.0) Ur Specific Cobalt (1.001-1.035) Urine Protein (Negative) Urine Glucose (UA) (Negative) Urine Ketones (Negative) Urine Blood (Negative) Urine Nitrite (Negative) Urine Bilirubin (Negative) Urine Urobilinogen (<2.0) mg/dL Ur Leukocyte Esterase (Negative) Urine RBC (0-5) /hpf Urine WBC (0-5) /hpf Urine WBC Clumps (None) /hpf Amorphous Sediment (None) /hpf Urine Mucus (None) /hpf 04/23/18 04/23/18 04/23/18 Range/Units 15:28 15:28 16:05 WBC (3.8-10.6) k/uL RBC (4.30-5.90) m/uL Hgb (13.0-17.5) gm/dL Hct (39.0-53.0) % MCV (80.0-100.0) fL MCH (25.0-35.0) pg MCHC (31.0-37.0) g/dL RDW (11.5-15.5) % Plt Count (150-450) k/uL Neutrophils % % Lymphocytes % % Monocytes % % Eosinophils % % Basophils % % Neutrophils # (1.3-7.7) k/uL Lymphocytes # (1.0-4.8) k/uL Monocytes # (0-1.0) k/uL Eosinophils # (0-0.7) k/uL Basophils # (0-0.2) k/uL Hypochromasia Anisocytosis Macrocytosis PT 10.6 (9.0-12.0) sec INR 1.1 (<1.2) APTT 23.3 (22.0-30.0) sec Sample Site Right Radial ABG pH 7.36 (7.35-7.45) ABG pCO2 50 H (35-45) mmHg ABG pO2 71 L (83-108) mmHg ABG HCO3 29 H (21-25) mmol/L ABG Total CO2 30 H (19-24) mmol/L ABG O2 Saturation 93.9 L (94-97) % ABG Base Excess 3.1 mmol/L Lukasz Test Yes FiO2 100 % Sodium (137-145) mmol/L Potassium (3.5-5.1) mmol/L Chloride (98-107) mmol/L Carbon Dioxide (22-30) mmol/L Anion Gap mmol/L BUN (9-20) mg/dL Creatinine (0.66-1.25) mg/dL Est GFR (CKD-EPI)AfAm (>60 ml/min/1.73 sqM) Est GFR (CKD-EPI)NonAf (>60 ml/min/1.73 sqM) Glucose (74-99) mg/dL Plasma Lactic Acid Glen 2.0 (0.7-2.0) mmol/L Calcium (8.4-10.2) mg/dL Total Bilirubin (0.2-1.3) mg/dL AST (17-59) U/L ALT (21-72) U/L Alkaline Phosphatase (38-126) U/L Total Creatine Kinase (55-170) U/L CK-MB (CK-2) (0.0-2.4) ng/mL CK-MB (CK-2) Rel Index Troponin I (0.000-0.034) ng/mL Total Protein (6.3-8.2) g/dL Albumin (3.5-5.0) g/dL Urine Color Urine Appearance (Clear) Urine pH (5.0-8.0) Ur Specific Cobalt (1.001-1.035) Urine Protein (Negative) Urine Glucose (UA) (Negative) Urine Ketones (Negative) Urine Blood (Negative) Urine Nitrite (Negative) Urine Bilirubin (Negative) Urine Urobilinogen (<2.0) mg/dL Ur Leukocyte Esterase (Negative) Urine RBC (0-5) /hpf Urine WBC (0-5) /hpf Urine WBC Clumps (None) /hpf Amorphous Sediment (None) /hpf Urine Mucus (None) /hpf 04/23/18 Range/Units 16:40 WBC (3.8-10.6) k/uL RBC (4.30-5.90) m/uL Hgb (13.0-17.5) gm/dL Hct (39.0-53.0) % MCV (80.0-100.0) fL MCH (25.0-35.0) pg MCHC (31.0-37.0) g/dL RDW (11.5-15.5) % Plt Count (150-450) k/uL Neutrophils % % Lymphocytes % % Monocytes % % Eosinophils % % Basophils % % Neutrophils # (1.3-7.7) k/uL Lymphocytes # (1.0-4.8) k/uL Monocytes # (0-1.0) k/uL Eosinophils # (0-0.7) k/uL Basophils # (0-0.2) k/uL Hypochromasia Anisocytosis Macrocytosis PT (9.0-12.0) sec INR (<1.2) APTT (22.0-30.0) sec Sample Site ABG pH (7.35-7.45) ABG pCO2 (35-45) mmHg ABG pO2 (83-108) mmHg ABG HCO3 (21-25) mmol/L ABG Total CO2 (19-24) mmol/L ABG O2 Saturation (94-97) % ABG Base Excess mmol/L Lukasz Test FiO2 % Sodium (137-145) mmol/L Potassium (3.5-5.1) mmol/L Chloride (98-107) mmol/L Carbon Dioxide (22-30) mmol/L Anion Gap mmol/L BUN (9-20) mg/dL Creatinine (0.66-1.25) mg/dL Est GFR (CKD-EPI)AfAm (>60 ml/min/1.73 sqM) Est GFR (CKD-EPI)NonAf (>60 ml/min/1.73 sqM) Glucose (74-99) mg/dL Plasma Lactic Acid Glen (0.7-2.0) mmol/L Calcium (8.4-10.2) mg/dL Total Bilirubin (0.2-1.3) mg/dL AST (17-59) U/L ALT (21-72) U/L Alkaline Phosphatase (38-126) U/L Total Creatine Kinase (55-170) U/L CK-MB (CK-2) (0.0-2.4) ng/mL CK-MB (CK-2) Rel Index Troponin I (0.000-0.034) ng/mL Total Protein (6.3-8.2) g/dL Albumin (3.5-5.0) g/dL Urine Color Yellow Urine Appearance Cloudy (Clear) Urine pH 5.5 (5.0-8.0) Ur Specific Cobalt 1.017 (1.001-1.035) Urine Protein 2+ H (Negative) Urine Glucose (UA) Negative (Negative) Urine Ketones Negative (Negative) Urine Blood Moderate H (Negative) Urine Nitrite Positive (Negative) Urine Bilirubin Negative (Negative) Urine Urobilinogen <2.0 (<2.0) mg/dL Ur Leukocyte Esterase Large H (Negative) Urine RBC 98 H (0-5) /hpf Urine WBC >182 H (0-5) /hpf Urine WBC Clumps Many H (None) /hpf Amorphous Sediment Rare H (None) /hpf Urine Mucus Rare H (None) /hpf Disposition Clinical Impression: Urinary tract infection, COPD exacerbation Disposition: ADMITTED IP TO THIS HOSP Referrals: Diogo Junior MD [Primary Care Provider] - 1-2 days Time of Disposition: 17:07
[2018-04-23 15:52] LABS: Anisocytosis Slight; Basophils % (A) 0 %; Eosinophils % (A) 1 %; HGB 8.7 gm/dL (13.0-17.5); Hypochromasia Marked; Lymphocytes # (A) 1.6 k/uL (1.0-4.8); Lymphocytes % (A) 17 %; MCH 29.8 pg (25.0-35.0); MCV 99.2 fL (80.0-100.0); Macrocytosis Slight; Mean Platelet Volume 7.2; Monocytes # (A) 0.4 k/uL (0-1.0); Monocytes % (A) 4 %; Neutrophils # (A) 7.1 k/uL (1.3-7.7); Neutrophils % (A) 76 %; Platelet Count 307 k/uL (150-450); RBC 2.92 m/uL (4.30-5.90); RDW 17.1 % (11.5-15.5); WBC 9.3 k/uL (3.8-10.6)
[2018-04-23 16:02] LABS: INR 1.1 (<1.2); Partial Thromboplastin Time 23.3 sec (22.0-30.0); Prothrombin Time 10.6 sec (9.0-12.0)
[2018-04-23 16:03] LABS: Albumin 3.2 g/dL (3.5-5.0); Calcium 8.8 mg/dL (8.4-10.2); Potassium 4.6 mmol/L (3.5-5.1); Total Bilirubin 0.5 mg/dL (0.2-1.3); Total Protein 6.5 g/dL (6.3-8.2)
[2018-04-23 16:04] LABS: Creatine Kinase 23 U/L (55-170)
[2018-04-23 16:04] LABS: ABG Base Excess 3.1 mmol/L; ABG HCO3 29 mmol/L (21-25); ABG Oxygen Saturation 93.9 % (94-97); ABG PCO2 50 mmHg (35-45); ABG PH 7.36 (7.35-7.45); ABG PO2 71 mmHg (83-108); ABG TCO2 30 mmol/L (19-24)
[2018-04-23 16:17] LABS: Creatine Kinase MB 0.7 ng/mL (0.0-2.4); Troponin I <0.012 ng/mL (0.000-0.034)
[2018-04-23] MEDS: SODIUM CHLORIDE 0.9% 500 ML IV SCH ×2 (16:36→17:25)
--- NOTE | 2018-04-23 16:46 | XR ---
EXAMINATION TYPE: XR chest 1V portable DATE OF EXAM: 04/23/2018 COMPARISON: 01/03/2018 INDICATION:Fever short of breath COPD lung cancer TECHNIQUE: Single frontal view of the chest is obtained. FINDINGS: The heart size is normal. The pulmonary vasculature is normal. There is a small right pleural effusion, likely increased from comparison. There is a irregular density within the periphery of the left midlung likely related to the patient's reported cancer. This area appears stable from comparison. Minimal left pleural effusion may have de veloped. IMPRESSION: 1. Patient's changes suggestive for left lung cancer appears stable. 2. There is some developing small to moderate right and minimal left pleural effusions.
[2018-04-23 16:59] LABS: Amorphous Sediment,Urine Rare /hpf; Appearance,Urine Cloudy (Clear); Bilirubin,Urine Negative (Negative); Blood,Urine Moderate (Negative); Color,Urine Yellow; Glucose,Urine (UA) Negative (Negative); Ketones,Urine Negative (Negative); Leukocyte Esterase,Urine Large (Negative); Mucus,Urine Rare /hpf; Nitrite,Urine Positive (Negative); PH, Urine 5.5 (5.0-8.0); Protein,Urine 2+ (Negative); RBC,Urine 98 /hpf (0-5); Specific Gravity,Urine 1.017 (1.001-1.035); Urobilinogen,Urine <2.0 mg/dL (<2.0); WBC,Urine >182 /hpf (0-5)
[2018-04-24] MEDS: methylPREDNISolone SOD SUCCI 125 MG/2 ML VIAL IV SCH ×5 (00:15→23:41)
[2018-04-24] MEDS: PIPERACILLIN-TAZOBACTAM 3.375 GM in DEXTROSE/WATER 1 50ML.BAG IVPB SCH ×3 (01:30→19:42)
[2018-04-24 06:32] LABS: Anisocytosis Slight; HCT 28.2 % (39.0-53.0); HGB 8.4 gm/dL (13.0-17.5); Hypochromasia Marked; MCH 30.2 pg (25.0-35.0); MCHC 29.7 g/dL (31.0-37.0); MCV 101.6 fL (80.0-100.0); Macrocytosis Moderate; Mean Platelet Volume 7.4; Platelet Count 260 k/uL (150-450); RBC 2.77 m/uL (4.30-5.90); RDW 17.4 % (11.5-15.5); WBC 7.9 k/uL (3.8-10.6)
[2018-04-24 06:48] LABS: Calcium 9.2 mg/dL (8.4-10.2); Potassium 5.1 mmol/L (3.5-5.1)
[2018-04-24 07:17] LABS: Glucose,Whole Blood 126 mg/dL (75-99)
[2018-04-24] MEDS: IPRATROPIUM-ALBUTEROL 3 ML NEB INHALATION PRN ×3 (07:42→19:47)
[2018-04-24] MEDS: INSULIN ASPART 100 UNIT/ML 1 ML 10 ML VIAL SQ SCH ×4 (08:49→21:51)
[2018-04-24] MEDS ORDERED: LOPERAMIDE 2 MG CAP PO PRN (09:27)
[2018-04-24] MEDS ORDERED: LORazepam 0.5 MG TAB PO PRN (09:27)
[2018-04-24] MEDS ORDERED: MAGNESIUM HYDROXIDE 2,400 MG/10 ML CUP PO PRN (09:27)
[2018-04-24] MEDS ORDERED: guaiFENesin SYRUP 100MG/5ML 200 MG/10 ML CUP PO PRN (09:27)
[2018-04-24] MEDS ORDERED: BISACODYL 10 MG SUPP RECTAL PRN (09:27)
[2018-04-24] MEDS ORDERED: NA PHOS,M-B/NA PHOS,DI-BA 133 ML ENEMA RECTAL PRN (09:27)
[2018-04-24 11:32] LABS: Glucose,Whole Blood 144 mg/dL (75-99)
[2018-04-24] MEDS ORDERED: NON-FORMULARY DRUG (Lactose-Reduced Food [Boost] 237 ML) PO SCH (12:00)
--- NOTE | 2018-04-24 13:13 | PN ---
PROGRESS NOTE DATE OF SERVICE: 03/24/2018 CHIEF COMPLAINT: Exacerbation of COPD and CA of the lung. HISTORY OF PRESENT ILLNESS: This gentleman is just about the same. He is breathing a little bit more easily. PHYSICAL EXAM: Chest demonstrates extremely poor breath sounds especially at the left base. Cardiac exam is normal. IMPRESSION: 1. Exacerbation of chronic obstructive pulmonary disease. 2. Carcinoma of the lung. 3. Tumor cachexia. PLAN: Continue with current program. MMJANICEL / PASCALEN: [id number] /
--- NOTE | 2018-04-24 13:19 | HP ---
HISTORY AND PHYSICAL CHIEF COMPLAINT: Shortness of breath. HISTORY OF PRESENT ILLNESS: This is another of many admissions for this 82-year-old terminally ill white male from [facility]. He dropped his pulse ox and was sent to the emergency room. He has COPD and carcinoma lung which is slowly progressing. He is slowly losing weight. REVIEW OF SYSTEMS: He has had no hemoptysis, fever and chills, etc. Past medical history, family history, personal and social histories are all unchanged from his recent admitting and discharge summaries. He refuses hospice, palliative care, and no code status. PHYSICAL EXAM: Blood pressure is 108/73 with a pulse of 80, respirations of 36 and he is afebrile. In general, he appeared to be chronically ill, pale and cachectic. Head, ears, eyes, nose, mouth, and throat were normal. Neck veins were not distended. Chest demonstrated breath sounds on both sides, but somewhat diminished at the bases. Cardiac exam demonstrates sinus rhythm and no murmurs or extra sounds. Abdomen is scaphoid, soft. No masses. Extremities are normal. Neurologically, he is intact. He is admitted to the hospital with diagnoses: 1. Exacerbation of chronic obstructive pulmonary disease. 2. Terminal carcinoma of the lung. PLAN: 1. Bed rest. 2. IV fluids. 3. Updrafts. 4. [facility]. MMODL / IJN: [id number] /
[2018-04-24 17:12] LABS: Glucose,Whole Blood 121 mg/dL (75-99)
[2018-04-24] MEDS: DRONABINOL 2.5 MG CAP PO SCH (19:42)
[2018-04-24] MEDS: LACTOBACILLUS ACIDOPH & BULGAR 1 EACH PACKET PO SCH (19:42)
[2018-04-24] MEDS: ACETAMINOPHEN TAB 325 MG TAB PO PRN (20:06)
[2018-04-24] MEDS: MENTHOL-ZINC OXIDE OINT 113 GM TUBE TOPICAL SCH (20:13)
[2018-04-24 21:12] LABS: Glucose,Whole Blood 150 mg/dL (75-99)
[2018-04-25] MEDS: PIPERACILLIN-TAZOBACTAM 3.375 GM in DEXTROSE/WATER 1 50ML.BAG IVPB SCH ×3 (00:38→17:27)
[2018-04-25] MEDS: INSULIN ASPART 100 UNIT/ML 1 ML 10 ML VIAL SQ SCH ×4 (06:38→21:05)
[2018-04-25 06:39] LABS: Anisocytosis Slight; Basophils % (A) 0 %; Eosinophils % (A) 0 %; HCT 25.9 % (39.0-53.0); HGB 7.8 gm/dL (13.0-17.5); Hypochromasia Marked; Lymphocytes # (A) 0.6 k/uL (1.0-4.8); Lymphocytes % (A) 8 %; MCH 30.1 pg (25.0-35.0); MCHC 30.3 g/dL (31.0-37.0); MCV 99.4 fL (80.0-100.0); Macrocytosis Slight; Mean Platelet Volume 7.7; Monocytes # (A) 0.2 k/uL (0-1.0); Monocytes % (A) 3 %; Neutrophils # (A) 6.8 k/uL (1.3-7.7); Neutrophils % (A) 89 %; Platelet Count 225 k/uL (150-450); RBC 2.61 m/uL (4.30-5.90); RDW 17.1 % (11.5-15.5); WBC 7.6 k/uL (3.8-10.6)
[2018-04-25] MEDS: methylPREDNISolone SOD SUCCI 125 MG/2 ML VIAL IV SCH ×3 (06:40→17:27)
[2018-04-25 06:41] LABS: Glucose,Whole Blood 126 mg/dL (75-99)
[2018-04-25 07:01] LABS: Potassium 4.8 mmol/L (3.5-5.1)
[2018-04-25 07:02] LABS: Calcium 9.1 mg/dL (8.4-10.2)
[2018-04-25] MEDS: IPRATROPIUM-ALBUTEROL 3 ML NEB INHALATION PRN ×4 (07:53→21:15)
[2018-04-25] MEDS: MENTHOL-ZINC OXIDE OINT 113 GM TUBE TOPICAL SCH ×2 (09:37→21:20)
[2018-04-25] MEDS: APIXABAN 5 MG TAB PO SCH (09:37)
[2018-04-25] MEDS: DRONABINOL 2.5 MG CAP PO SCH ×2 (09:37→17:25)
[2018-04-25 11:35] LABS: Hemoglobin A1C 5.4 % (4.0-6.0)
[2018-04-25 11:46] LABS: Glucose,Whole Blood 272 mg/dL (75-99)
[2018-04-25] MEDS: LACTOBACILLUS ACIDOPH & BULGAR 1 EACH PACKET PO SCH ×2 (12:23→17:26)
[2018-04-25 16:25] LABS: Glucose,Whole Blood 169 mg/dL (75-99)
--- NOTE | 2018-04-25 18:59 | PN ---
PROGRESS NOTE DATE OF SERVICE: 04/25/2018. CHIEF COMPLAINT: Exacerbation of COPD and CA of the lung. HISTORY OF PRESENT ILLNESS: This gentleman feels like he is having a harder time breathing. He has had no chest pain. He has had no fever. PHYSICAL EXAM: Breath sounds are diminished throughout and particularly at the left base. Cardiac exam is normal. The abdomen is soft. He is pale and chronically ill. IMPRESSION: 1. Exacerbation of chronic obstructive pulmonary disease. 2. Carcinoma of the lung. PLAN: Continue with current treatment program. He refuses to consider DNR status, hospice or palliative care. MMODL / IJN: [id number] /
[2018-04-25 21:02] LABS: Glucose,Whole Blood 125 mg/dL (75-99)
[2018-04-26] MEDS: PIPERACILLIN-TAZOBACTAM 3.375 GM in DEXTROSE/WATER 1 50ML.BAG IVPB SCH ×3 (00:28→17:34)
[2018-04-26] MEDS: methylPREDNISolone SOD SUCCI 125 MG/2 ML VIAL IV SCH ×4 (00:28→17:34)
[2018-04-26 07:21] LABS: Glucose,Whole Blood 165 mg/dL (75-99)
[2018-04-26] MEDS: IPRATROPIUM-ALBUTEROL 3 ML NEB INHALATION PRN ×4 (08:05→19:07)
[2018-04-26] MEDS: INSULIN ASPART 100 UNIT/ML 1 ML 10 ML VIAL SQ SCH ×4 (09:03→22:09)
[2018-04-26] MEDS: APIXABAN 5 MG TAB PO SCH (09:03)
[2018-04-26] MEDS: MENTHOL-ZINC OXIDE OINT 113 GM TUBE TOPICAL SCH ×2 (09:04→22:12)
[2018-04-26] MEDS: LACTOBACILLUS ACIDOPH & BULGAR 1 EACH PACKET PO SCH ×2 (10:34→17:35)
[2018-04-26] MEDS: DRONABINOL 2.5 MG CAP PO SCH ×2 (10:34→16:00)
[2018-04-26 11:54] LABS: Glucose,Whole Blood 126 mg/dL (75-99)
[2018-04-26] MEDS: ACETAMINOPHEN TAB 325 MG TAB PO PRN (16:00)
[2018-04-26 17:36] LABS: Glucose,Whole Blood 222 mg/dL (75-99)
[2018-04-26 21:19] LABS: Glucose,Whole Blood 217 mg/dL (75-99)
[2018-04-27] MEDS: methylPREDNISolone SOD SUCCI 125 MG/2 ML VIAL IV SCH ×5 (00:12→23:39)
[2018-04-27] MEDS: PIPERACILLIN-TAZOBACTAM 3.375 GM in DEXTROSE/WATER 1 50ML.BAG IVPB SCH ×3 (00:57→17:00)
[2018-04-27 07:23] LABS: Glucose,Whole Blood 132 mg/dL (75-99)
[2018-04-27] MEDS: IPRATROPIUM-ALBUTEROL 3 ML NEB INHALATION PRN ×4 (07:26→19:44)
[2018-04-27] MEDS: INSULIN ASPART 100 UNIT/ML 1 ML 10 ML VIAL SQ SCH ×4 (08:32→21:14)
[2018-04-27] MEDS: DRONABINOL 2.5 MG CAP PO SCH ×2 (08:32→17:00)
[2018-04-27] MEDS: APIXABAN 5 MG TAB PO SCH (08:32)
[2018-04-27] MEDS: MENTHOL-ZINC OXIDE OINT 113 GM TUBE TOPICAL SCH ×2 (08:33→21:14)
[2018-04-27] MEDS: ACETAMINOPHEN TAB 325 MG TAB PO PRN (08:51)
[2018-04-27] MEDS: LACTOBACILLUS ACIDOPH & BULGAR 1 EACH PACKET PO SCH ×2 (11:06→18:05)
[2018-04-27 12:00] LABS: Glucose,Whole Blood 160 mg/dL (75-99)
[2018-04-27 17:17] LABS: Glucose,Whole Blood 163 mg/dL (75-99)
--- NOTE | 2018-04-27 18:55 | PN ---
PROGRESS NOTE CHIEF COMPLAINT: Exacerbated COPD and CA of the lung. HISTORY OF PRESENT ILLNESS: This gentleman's upset because he started coughing up blood last night. He has not had any an increase in his pain or shortness of breath. PHYSICAL EXAM: Breath sounds are diminished throughout with occasional rales and rhonchi. IMPRESSION: 1. Exacerbation of chronic obstructive pulmonary disease. 2. Carcinoma of the lung. PLAN: 1. Try to reassure. 2. Await hospice consult. MMODL / IJN: [id number] /
[2018-04-27 20:36] LABS: Glucose,Whole Blood 278 mg/dL (75-99)
[2018-04-28] MEDS: PIPERACILLIN-TAZOBACTAM 3.375 GM in DEXTROSE/WATER 1 50ML.BAG IVPB SCH ×3 (01:53→17:33)
[2018-04-28] MEDS: methylPREDNISolone SOD SUCCI 125 MG/2 ML VIAL IV SCH ×3 (06:04→17:56)
[2018-04-28] MEDS: IPRATROPIUM-ALBUTEROL 3 ML NEB INHALATION PRN ×3 (06:54→16:36)
[2018-04-28 07:36] LABS: Glucose,Whole Blood 138 mg/dL (75-99)
[2018-04-28] MEDS: INSULIN ASPART 100 UNIT/ML 1 ML 10 ML VIAL SQ SCH ×4 (08:21→21:57)
[2018-04-28] MEDS: APIXABAN 5 MG TAB PO SCH (08:21)
[2018-04-28] MEDS: DRONABINOL 2.5 MG CAP PO SCH ×2 (08:21→17:33)
[2018-04-28] MEDS: MENTHOL-ZINC OXIDE OINT 113 GM TUBE TOPICAL SCH ×2 (08:22→21:40)
[2018-04-28] MEDS: LACTOBACILLUS ACIDOPH & BULGAR 1 EACH PACKET PO SCH ×2 (08:22→17:33)
[2018-04-28 12:19] LABS: Glucose,Whole Blood 125 mg/dL (75-99)
[2018-04-28 17:09] LABS: Glucose,Whole Blood 230 mg/dL (75-99)
[2018-04-28] MEDS: ACETAMINOPHEN TAB 325 MG TAB PO PRN (17:42)
[2018-04-28] MEDS ORDERED: ONDANSETRON 4 MG/2 ML VIAL IVP PRN (20:20)
[2018-04-28 20:58] LABS: Glucose,Whole Blood 98 mg/dL (75-99)
[2018-04-29] MEDS: methylPREDNISolone SOD SUCCI 125 MG/2 ML VIAL IV SCH ×5 (00:58→23:52)
[2018-04-29] MEDS: PIPERACILLIN-TAZOBACTAM 3.375 GM in DEXTROSE/WATER 1 50ML.BAG IVPB SCH ×4 (01:11→23:53)
[2018-04-29 07:11] LABS: Glucose,Whole Blood 148 mg/dL (75-99)
[2018-04-29] MEDS: INSULIN ASPART 100 UNIT/ML 1 ML 10 ML VIAL SQ SCH ×4 (07:46→22:30)
[2018-04-29] MEDS: APIXABAN 5 MG TAB PO SCH (07:47)
[2018-04-29] MEDS: DRONABINOL 2.5 MG CAP PO SCH ×2 (07:47→17:45)
[2018-04-29] MEDS: MENTHOL-ZINC OXIDE OINT 113 GM TUBE TOPICAL SCH ×2 (07:48→22:30)
[2018-04-29] MEDS: LACTOBACILLUS ACIDOPH & BULGAR 1 EACH PACKET PO SCH ×2 (08:20→17:45)
[2018-04-29] MEDS: IPRATROPIUM-ALBUTEROL 3 ML NEB INHALATION PRN ×3 (08:28→16:22)
[2018-04-29 12:10] LABS: Glucose,Whole Blood 140 mg/dL (75-99)
[2018-04-29 14:36] VITALS: BMI 15.7
[2018-04-29 17:37] LABS: Glucose,Whole Blood 137 mg/dL (75-99)
[2018-04-29 20:43] LABS: Glucose,Whole Blood 165 mg/dL (75-99)
[2018-04-30] MEDS: methylPREDNISolone SOD SUCCI 125 MG/2 ML VIAL IV SCH ×4 (06:05→23:52)
[2018-04-30 07:19] LABS: Glucose,Whole Blood 148 mg/dL (75-99)
[2018-04-30] MEDS: IPRATROPIUM-ALBUTEROL 3 ML NEB INHALATION PRN ×3 (07:19→15:35)
[2018-04-30] MEDS: LACTOBACILLUS ACIDOPH & BULGAR 1 EACH PACKET PO SCH ×2 (09:05→17:13)
[2018-04-30] MEDS: PIPERACILLIN-TAZOBACTAM 3.375 GM in DEXTROSE/WATER 1 50ML.BAG IVPB SCH ×3 (09:05→23:53)
[2018-04-30] MEDS: DRONABINOL 2.5 MG CAP PO SCH ×2 (09:05→17:35)
[2018-04-30] MEDS: APIXABAN 5 MG TAB PO SCH (09:05)
[2018-04-30] MEDS: INSULIN ASPART 100 UNIT/ML 1 ML 10 ML VIAL SQ SCH ×4 (09:05→21:16)
[2018-04-30] MEDS: MENTHOL-ZINC OXIDE OINT 113 GM TUBE TOPICAL SCH ×2 (09:06→21:16)
[2018-04-30 11:34] LABS: Glucose,Whole Blood 149 mg/dL (75-99)
[2018-04-30 17:22] LABS: Glucose,Whole Blood 183 mg/dL (75-99)
[2018-04-30 20:40] LABS: Glucose,Whole Blood 214 mg/dL (75-99)
[2018-05-01] MEDS: methylPREDNISolone SOD SUCCI 125 MG/2 ML VIAL IV SCH ×4 (05:51→23:24)
[2018-05-01 07:18] LABS: Glucose,Whole Blood 131 mg/dL (75-99)
[2018-05-01] MEDS: IPRATROPIUM-ALBUTEROL 3 ML NEB INHALATION PRN ×4 (07:25→18:57)
[2018-05-01] MEDS: DRONABINOL 2.5 MG CAP PO SCH ×2 (08:02→17:27)
[2018-05-01] MEDS: APIXABAN 5 MG TAB PO SCH (08:02)
[2018-05-01] MEDS: PIPERACILLIN-TAZOBACTAM 3.375 GM in DEXTROSE/WATER 1 50ML.BAG IVPB SCH ×3 (08:02→23:59)
[2018-05-01] MEDS: LACTOBACILLUS ACIDOPH & BULGAR 1 EACH PACKET PO SCH ×2 (08:02→17:17)
[2018-05-01] MEDS: INSULIN ASPART 100 UNIT/ML 1 ML 10 ML VIAL SQ SCH ×4 (08:03→20:55)
[2018-05-01] MEDS: MENTHOL-ZINC OXIDE OINT 113 GM TUBE TOPICAL SCH ×2 (11:30→20:55)
[2018-05-01 11:36] LABS: Glucose,Whole Blood 147 mg/dL (75-99)
[2018-05-01 16:59] LABS: Glucose,Whole Blood 201 mg/dL (75-99)
[2018-05-01 20:42] LABS: Glucose,Whole Blood 261 mg/dL (75-99)
--- NOTE | 2018-05-01 23:41 | PN ---
PROGRESS NOTE CHIEF COMPLAINT: COPD and CA of the lung. HISTORY OF PRESENT ILLNESS: This gentleman is still coughing up blood. He is not short of breath and he is not having any pain. PHYSICAL EXAM: Decreased breath sounds with rales rhonchi at the left base. Cardiac exam is normal. IMPRESSION: Chronic obstructive pulmonary disease with carcinoma of the lung with hemoptysis. PLAN: Continue on current program and await recommendations from hospice. MMODL / IJN: [id number] /
[2018-05-02] MEDS: methylPREDNISolone SOD SUCCI 125 MG/2 ML VIAL IV SCH ×3 (05:08→17:15)
[2018-05-02 07:17] LABS: Glucose,Whole Blood 136 mg/dL (75-99)
[2018-05-02] MEDS: IPRATROPIUM-ALBUTEROL 3 ML NEB INHALATION PRN ×4 (07:20→19:15)
[2018-05-02] MEDS: INSULIN ASPART 100 UNIT/ML 1 ML 10 ML VIAL SQ SCH ×4 (08:22→21:07)
[2018-05-02] MEDS: DRONABINOL 2.5 MG CAP PO SCH ×2 (08:22→17:14)
[2018-05-02] MEDS: APIXABAN 5 MG TAB PO SCH (08:22)
[2018-05-02] MEDS: LACTOBACILLUS ACIDOPH & BULGAR 1 EACH PACKET PO SCH ×2 (08:23→17:12)
[2018-05-02] MEDS: PIPERACILLIN-TAZOBACTAM 3.375 GM in DEXTROSE/WATER 1 50ML.BAG IVPB SCH ×2 (08:23→17:12)
[2018-05-02] MEDS: MENTHOL-ZINC OXIDE OINT 113 GM TUBE TOPICAL SCH ×2 (08:23→21:07)
[2018-05-02 11:45] LABS: Glucose,Whole Blood 219 mg/dL (75-99)
[2018-05-02 17:01] LABS: Glucose,Whole Blood 137 mg/dL (75-99)
[2018-05-02 20:51] LABS: Glucose,Whole Blood 231 mg/dL (75-99)
[2018-05-03] MEDS: methylPREDNISolone SOD SUCCI 125 MG/2 ML VIAL IV SCH ×4 (00:09→17:40)
[2018-05-03] MEDS: PIPERACILLIN-TAZOBACTAM 3.375 GM in DEXTROSE/WATER 1 50ML.BAG IVPB SCH ×3 (01:33→17:11)
[2018-05-03 07:18] LABS: Glucose,Whole Blood 130 mg/dL (75-99)
[2018-05-03] MEDS: INSULIN ASPART 100 UNIT/ML 1 ML 10 ML VIAL SQ SCH ×3 (07:38→17:40)
[2018-05-03] MEDS: IPRATROPIUM-ALBUTEROL 3 ML NEB INHALATION PRN ×3 (08:56→16:12)
[2018-05-03] MEDS: DRONABINOL 2.5 MG CAP PO SCH ×2 (08:59→17:40)
[2018-05-03] MEDS: MENTHOL-ZINC OXIDE OINT 113 GM TUBE TOPICAL SCH (08:59)
[2018-05-03] MEDS: APIXABAN 5 MG TAB PO SCH (08:59)
[2018-05-03] MEDS: LACTOBACILLUS ACIDOPH & BULGAR 1 EACH PACKET PO SCH ×2 (08:59→17:11)
[2018-05-03 11:13] LABS: Glucose,Whole Blood 279 mg/dL (75-99)
--- NOTE | 2018-05-03 11:31 | DS ---
DISCHARGE SUMMARY CHIEF COMPLAINT: Exacerbation of COPD and CA of the lung. HISTORY OF PRESENT ILLNESS AND PHYSICAL EXAM: Details of this man's history and physical can be found in the initial workup. LABORATORY STUDIES: While he was in a hospital, he had laboratory studies, details which can be found in the laboratory section of his chart. COURSE IN HOSPITAL: After admission, placed on bedrest, started on intravenous fluids, updrafts and activity and diet as tolerated. His breathing improved somewhat. He is clearly deteriorating relative to his metastatic carcinoma of the lung. He became weaker in the hospital and more anorexic. Hospice was discussed and he agreed to go into hospice. They did not see him for several days, but when they did, apparently he refused. At that point, it was felt that he could go back to the [facility] and he will be discharged on 05/03. FINAL DIAGNOSIS: 1. Exacerbation of COPD. 2. Progressive terminal carcinoma of the lung. OPERATIONS: None. CONSULTATIONS: Hospice is improved. MMAALIYAH / PASCALEN: [id number] /
[2018-05-03 13:24] VITALS: RESP 16
[2018-05-03 14:10] VITALS: BP 113/57; TEMP 98.8
[2018-05-03 16:15] VITALS: PULSE 80
[2018-05-03 16:15] LABS: Anisocytosis Slight; Basophils % (A) 0 %; Eosinophils % (A) 0 %; HCT 27.6 % (39.0-53.0); HGB 8.5 gm/dL (13.0-17.5); Hypochromasia Slight; Lymphocytes # (A) 0.2 k/uL (1.0-4.8); Lymphocytes % (A) 3 %; MCH 29.2 pg (25.0-35.0); MCHC 30.6 g/dL (31.0-37.0); MCV 95.4 fL (80.0-100.0); Mean Platelet Volume 8.1; Monocytes # (A) 0.2 k/uL (0-1.0); Monocytes % (A) 2 %; Neutrophils # (A) 8.2 k/uL (1.3-7.7); Neutrophils % (A) 94 %; Platelet Count 236 k/uL (150-450); RDW 17.1 % (11.5-15.5); WBC 8.6 k/uL (3.8-10.6)
[2018-05-03 16:39] LABS: Appearance,Urine Cloudy (Clear); Bilirubin,Urine Negative (Negative); Blood,Urine Moderate (Negative); Budding Yeast,Urine Few /hpf; Color,Urine Light Yellow; Glucose,Urine (UA) Negative (Negative); Ketones,Urine Negative (Negative); Leukocyte Esterase,Urine Large (Negative); Nitrite,Urine Negative (Negative); Protein,Urine Trace (Negative); RBC,Urine 68 /hpf (0-5); Specific Gravity,Urine 1.017 (1.001-1.035); Urobilinogen,Urine <2.0 mg/dL (<2.0); WBC,Urine 42 /hpf (0-5)
[2018-05-03 16:49] LABS: Glucose,Whole Blood 166 mg/dL (75-99)
--- NOTE | 2018-05-03 16:55 | PN ---
PROGRESS NOTE DATE OF SERVICE: 05/02/2018 CHIEF COMPLAINT: Exacerbated chronic obstructive pulmonary disease and CA of the lung. HISTORY OF PRESENT ILLNESS: This gentleman is feeling weaker. He is discouraged by the fact he is coughing up blood. He is not having any more trouble breathing than usual. His appetite is poor. PHYSICAL EXAM: He looks chronically ill, pale and cachectic. Chest is fairly clear. Breath sounds are shallow. IMPRESSION: 1. Carcinoma of the lung. 2. Exacerbation of chronic obstructive pulmonary disease. 3. Hemoptysis. PLAN: Await for recommendations from hospice. They have not been in to see the patient yet. MMODL / IJN: [id number] /
--- NOTE | 2018-05-03 17:55 | PN ---
PROGRESS NOTE DATE OF SERVICE: 04/30/2018 CHIEF COMPLAINT: Exacerbated COPD and cancer of the lung. HISTORY OF PRESENT ILLNESS: This gentleman remains very weak, but he is not febrile. He is still quite short of breath. PHYSICAL EXAMINATION: Breath sounds are diminished throughout with occasional rales and scattered rhonchi. Cardiac exam is normal. IMPRESSION: 1. Exacerbation of chronic obstructive pulmonary disease. 2. Terminal cancer of the lung. PLAN: Continue with updrafts and IV fluids. MMODL / IJN: [id number] /
--- NOTE | 2018-05-03 18:01 | PN ---
PROGRESS NOTE DATE OF SERVICE: 04/29/2018 CHIEF COMPLAINT: Exacerbation of COPD, cancer of the lung. HISTORY OF PRESENT ILLNESS: This gentleman started to cough up a small amount of blood. He is complaining of quite a bit of pain in the left side of the chest and he is also quite anorexic. PHYSICAL EXAMINATION: Breath sounds are diminished and there are occasional rales throughout. Cardiac exam is normal. The abdomen is flat and soft. IMPRESSION: 1. Exacerbation of chronic obstructive pulmonary disease. 2. Carcinoma of the lung. 3. Hemoptysis. PLAN: No change in program at this time. We will have to discuss further with him about end- of-life matters. MMODL / IJN: [id number] /
--- NOTE | 2018-05-04 15:44 | PN ---
PROGRESS NOTE DATE OF SERVICE: 04/28/2018 CHIEF COMPLAINT: COPD and cancer of the lung. HISTORY OF PRESENT ILLNESS: This gentleman has started to cough up blood. He also has no appetite and has not been eating at all. PHYSICAL EXAMINATION: He is pale and chronically ill in appearance. Breath sounds are heard on both sides and they are diminished on the left. Abdomen is soft, nontender. IMPRESSION: 1. Exacerbation of chronic obstructive pulmonary disease. 2. Carcinoma of the lung. 3. Hemoptysis. PLAN: Continue with supportive care. We have discussed hospice referral. MMODL / IJN: [id number] /
== END 2018-05-03 20:48 | DRG 191 ==
LOC: EC 15:13 → 6SEL 17:08 → EEVIPCON 17:08 → 6SEL 22:20 → 4MS4W 04-25 19:08
PROVIDERS: ADMIT Family Medicine; ATTEND Family Medicine
DX: J44.1 Chronic obstructive pulmonary disease with (acute) exacerbation (principal); C34.90 Malignant neoplasm of unspecified part of unspecified bronchus or lung; N39.0 Urinary tract infection, site not specified; R64 Cachexia; R04.2 Hemoptysis; Z68.1 Body mass index [BMI] 19.9 or less, adult; Z87.01 Personal history of pneumonia (recurrent); Z86.718 Personal history of other venous thrombosis and embolism; K21.9 Gastro-esophageal reflux disease without esophagitis; E78.5 Hyperlipidemia, unspecified; I11.0 Hypertensive heart disease with heart failure; I49.3 Ventricular premature depolarization; I50.9 Heart failure, unspecified; Z79.01 Long term (current) use of anticoagulants; Z82.49 Family history of ischemic heart disease and other diseases of the circulatory system; Z87.891 Personal history of nicotine dependence
CPT/HCPCS: 36415; 36600; 71045; 80048; 80053; 81001; 82550; 82553; 82805; 83036; 83605; 84484; 85025; 85027; 85610; 85730; 87040; 87077; 87086; 87186; 87324; 93005; 94640; 94660; 94760; 96365; 96366; 99285

== ENCOUNTER 2018-05-28 08:25 | Observation (INO) | payer MEDICARE, OTHER ==
[2018-05-28] MEDS ORDERED: IPRATROPIUM-ALBUTEROL 3 ML NEB INHALATION STA (08:32)
--- NOTE | 2018-05-28 08:51 | ED ---
SOB HPI - General Source: patient, EMS, RN notes reviewed Mode of arrival: EMS Limitations: no limitations <Anthony Serra - Last Filed: 05/28/18 10:33> <Erwin Colindres - Last Filed: 05/28/18 11:52> - General Chief Complaint: Shortness of Breath Stated Complaint: SOB Time Seen by Provider: 05/28/18 08:28 - History of Present Illness Initial Comments: This an 82-year-old male presents emergency Department from assisted living with chief complaint shortness breath. Patient states he had worsening shortness breath over the night. Patient states he does have COPD and lung cancer. Patient states that he has no chest pain states he has a cough which is wet and productive at times. Patient had her recent hospitalization approximately one month ago for some her symptoms. Patient is on oxygen and was increased at [facility] but seemed to decompensate with increase on nonrebreather. Patient denies fevers or chills. (Anthony Serra) - Related Data Home Medications Medication Instructions Recorded Confirmed LORazepam [Ativan] 0.5 mg PO BID PRN 01/03/18 05/28/18 Acetaminophen Tab [Tylenol] 650 mg PO Q4H PRN 04/23/18 05/28/18 Bisacodyl [Dulcolax] 10 mg RECTAL DAILY PRN 04/23/18 05/28/18 Dronabinol [Marinol] 2.5 mg PO BID@,04/23/18 05/28/18 Lactobacillus Acidophilus 1 tab PO BID@,04/23/18 05/28/18 [Acidophilus] Lactose-Reduced Food [Boost] 237 ml PO BID@,04/23/18 05/28/18 Loperamide [Imodium] 2 mg PO DAILY PRN 04/23/18 05/28/18 Magnesium Hydroxide [Milk of 2,400 mg PO DAILY PRN 04/23/18 05/28/18 Magnesia] Menthol/Zinc Oxide [Calmoseptine 1 applic TOPICAL BID 04/23/18 05/28/18 Ointment] Na Phos,M-B/Na Phos,Di-Ba [Fleet 133 ml RECTAL ONCE PRN 04/23/18 05/28/18 Adult] Vits A and D/White Pet/Lanolin [A 1 applic TOPICAL BID 04/23/18 05/28/18 and D Ointment] guaiFENesin [guaiFENesin Oral 100 mg PO Q4H PRN 04/23/18 05/28/18 Solution] HYDROcodone/APAP 7.5-325MG [[place] 1 tab PO Q6HR PRN 05/28/18 05/28/18 7.5-325] Previous Rx's Medication Instructions Recorded Ipratropium-Albuterol Nebulize 3 ml INHALATION RT-Q4H PRN #120 05/03/18 [Duoneb 0.5 mg-3 mg/3 ml Soln] ampul.neb Allergies Allergy/AdvReac Type Severity Reaction Status Date / Time ceftriaxone sodium Allergy Itching Verified 05/28/18 10:54 [From Rocephin] Iodinated Contrast- Oral and Allergy Anaphylaxis Verified 05/28/18 10:54 IV Dye [Iodinated Contrast Media - IV Dye] levofloxacin Allergy Itching Verified 05/28/18 10:54 Review of Systems ROS Other: All systems not noted in ROS Statement are negative. <Anthony Serra - Last Filed: 05/28/18 10:33> ROS Other: All systems not noted in ROS Statement are negative. <Erwin Colindres - Last Filed: 05/28/18 11:52> ROS Statement: Those systems with pertinent positive or pertinent negative responses have been documented in the HPI. 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 History of Any Multi-Drug Resistant Organisms: None Reported Past Surgical History: Appendectomy, Tonsillectomy Additional Past Surgical History / Comment(s): AAA, NAYAN ROTATOR CUFF,NAYAN THUMB SX, LARYNGOSCOPY FOR HORSENESS,LT VOCAL CORD WEAKNESS.NEEDLE ASPIRATION LT LUNG MASS WAS POSITIVE FOR CANCER -PT STATED HE COMPLETED 5 RADIATION TREATMENTS. Past Anesthesia/Blood Transfusion Reactions: No Reported Reaction Additional Past Anesthesia/Blood Transfusion Reaction / Comment(s): blood transfusion Past Psychological History: No Psychological Hx Reported Smoking Status: Former smoker Past Alcohol Use History: None Reported Past Drug Use History: None Reported - Past Family History Father Family Medical History: Coronary Artery Disease (CAD) Mother Additional Family Medical History / Comment(s): ANEMIA <Anthony Serra - Last Filed: 05/28/18 10:33> General Exam Limitations: no limitations General appearance: alert, in no apparent distress, cachectic Head exam: Present: atraumatic, normocephalic, normal inspection Eye exam: Present: normal appearance, PERRL, EOMI. Absent: scleral icterus, conjunctival injection, periorbital swelling ENT exam: Present: normal oropharynx Neck exam: Present: normal inspection. Absent: tenderness, meningismus, lymphadenopathy Respiratory exam: Present: wheezes, rales. Absent: normal lung sounds bilaterally, respiratory distress, rhonchi, stridor Cardiovascular Exam: Present: normal rhythm, tachycardia, normal heart sounds. Absent: systolic murmur, diastolic murmur, rubs, gallop, clicks <Anthony Serra - Last Filed: 05/28/18 10:33> Vital Signs 05/28/18 05/28/18 05/28/18 08:29 08:54 08:55 Temperature 97.8 F Pulse Rate 110 H 110 H Respiratory 18 20 Rate Blood Pressure 142/74 O2 Sat by Pulse 100 Oximetry 05/28/18 09:02 Temperature Pulse Rate 109 H Respiratory Rate Blood Pressure O2 Sat by Pulse Oximetry Medical Decision Making - Lab Data Result diagrams: 05/28/18 08:40 05/28/18 08:40 <Anthony Serra - Last Filed: 05/28/18 10:33> - Lab Data Result diagrams: 05/28/18 08:40 05/28/18 08:40 <Erwin Colindres - Last Filed: 05/28/18 11:52> - Medical Decision Making 82-year-old male present emergency department for shortness of breath. Patient is supple and increased shortness of breath. Patient had a hypoxic event at assisted living. Patient be admitted at this time. (Anthony Serra) Kyle Handy, personally saw and examined the patient. I have reviewed and agree with the PA findings, including all diagnostic interpretations and treatment plans as written unless otherwise stated. I was present for the may portions of any procedures performed and the inclusive time noted for any critical care statement. (Erwin Colindres) - Lab Data Lab Results 05/28/18 05/28/18 05/28/18 Range/Units 08:40 08:40 08:40 WBC 5.5 (3.8-10.6) k/uL RBC 3.26 L (4.30-5.90) m/uL Hgb 9.7 L (13.0-17.5) gm/dL Hct 32.3 L (39.0-53.0) % MCV 99.0 (80.0-100.0) fL MCH 29.8 (25.0-35.0) pg MCHC 30.2 L (31.0-37.0) g/dL RDW 16.9 H (11.5-15.5) % Plt Count 469 H (150-450) k/uL Neutrophils % 76 % Lymphocytes % 16 % Monocytes % 5 % Eosinophils % 1 % Basophils % 1 % Neutrophils # 4.2 (1.3-7.7) k/uL Lymphocytes # 0.9 L (1.0-4.8) k/uL Monocytes # 0.3 (0-1.0) k/uL Eosinophils # 0.0 (0-0.7) k/uL Basophils # 0.0 (0-0.2) k/uL Hypochromasia Marked Anisocytosis Slight Macrocytosis Slight PT (9.0-12.0) sec INR (<1.2) APTT (22.0-30.0) sec Sodium 142 (137-145) mmol/L Potassium 4.4 (3.5-5.1) mmol/L Chloride 104 (98-107) mmol/L Carbon Dioxide 31 H (22-30) mmol/L Anion Gap 7 mmol/L BUN 27 H (9-20) mg/dL Creatinine 1.00 (0.66-1.25) mg/dL Est GFR (CKD-EPI)AfAm 80 (>60 ml/min/1.73 sqM) Est GFR (CKD-EPI)NonAf 69 (>60 ml/min/1.73 sqM) Glucose 113 H (74-99) mg/dL Calcium 9.3 (8.4-10.2) mg/dL Magnesium 2.2 (1.6-2.3) mg/dL Total Bilirubin 0.6 (0.2-1.3) mg/dL AST 24 (17-59) U/L ALT 19 L (21-72) U/L Alkaline Phosphatase 61 (38-126) U/L Total Creatine Kinase <20 L (55-170) U/L CK-MB (CK-2) 0.6 (0.0-2.4) ng/mL CK-MB (CK-2) Rel Index Troponin I 0.012 (0.000-0.034) ng/mL NT-Pro-B Natriuret Pep pg/mL Total Protein 6.1 L (6.3-8.2) g/dL Albumin 2.9 L (3.5-5.0) g/dL 05/28/18 05/28/18 Range/Units 08:40 08:40 WBC (3.8-10.6) k/uL RBC (4.30-5.90) m/uL Hgb (13.0-17.5) gm/dL Hct (39.0-53.0) % MCV (80.0-100.0) fL MCH (25.0-35.0) pg MCHC (31.0-37.0) g/dL RDW (11.5-15.5) % Plt Count (150-450) k/uL Neutrophils % % Lymphocytes % % Monocytes % % Eosinophils % % Basophils % % Neutrophils # (1.3-7.7) k/uL Lymphocytes # (1.0-4.8) k/uL Monocytes # (0-1.0) k/uL Eosinophils # (0-0.7) k/uL Basophils # (0-0.2) k/uL Hypochromasia Anisocytosis Macrocytosis PT 9.7 (9.0-12.0) sec INR 1.0 (<1.2) APTT 23.3 (22.0-30.0) sec Sodium (137-145) mmol/L Potassium (3.5-5.1) mmol/L Chloride (98-107) mmol/L Carbon Dioxide (22-30) mmol/L Anion Gap mmol/L BUN (9-20) mg/dL Creatinine (0.66-1.25) mg/dL Est GFR (CKD-EPI)AfAm (>60 ml/min/1.73 sqM) Est GFR (CKD-EPI)NonAf (>60 ml/min/1.73 sqM) Glucose (74-99) mg/dL Calcium (8.4-10.2) mg/dL Magnesium (1.6-2.3) mg/dL Total Bilirubin (0.2-1.3) mg/dL AST (17-59) U/L ALT (21-72) U/L Alkaline Phosphatase (38-126) U/L Total Creatine Kinase (55-170) U/L CK-MB (CK-2) (0.0-2.4) ng/mL CK-MB (CK-2) Rel Index Troponin I (0.000-0.034) ng/mL NT-Pro-B Natriuret Pep 4890 pg/mL Total Protein (6.3-8.2) g/dL Albumin (3.5-5.0) g/dL - EKG Data EKG Comments: EKG performed at 8:32 sinus tachycardia with noted PVC there is a rate of 113 GA 208 QRS 106 QT/QTC 348/477 (Anthony Serra) Disposition <Anthony Serra - Last Filed: 05/28/18 10:33> <Erwin Colindres - Last Filed: 05/28/18 11:52> Clinical Impression: COPD exacerbation, Lung cancer, Hypoxic episode Disposition: ADMITTED IP TO THIS HOSP Condition: Fair Referrals: Diogo Junior MD [Primary Care Provider] - 1-2 days
[2018-05-28 08:55] LABS: Anisocytosis Slight; Basophils % (A) 1 %; Eosinophils % (A) 1 %; HCT 32.3 % (39.0-53.0); HGB 9.7 gm/dL (13.0-17.5); Hypochromasia Marked; Lymphocytes # (A) 0.9 k/uL (1.0-4.8); Lymphocytes % (A) 16 %; MCH 29.8 pg (25.0-35.0); MCHC 30.2 g/dL (31.0-37.0); Macrocytosis Slight; Mean Platelet Volume 7.4; Monocytes # (A) 0.3 k/uL (0-1.0); Monocytes % (A) 5 %; Neutrophils # (A) 4.2 k/uL (1.3-7.7); Neutrophils % (A) 76 %; Platelet Count 469 k/uL (150-450); RBC 3.26 m/uL (4.30-5.90); RDW 16.9 % (11.5-15.5); WBC 5.5 k/uL (3.8-10.6)
[2018-05-28 09:05] LABS: Albumin 2.9 g/dL (3.5-5.0); Calcium 9.3 mg/dL (8.4-10.2); Magnesium 2.2 mg/dL (1.6-2.3); Potassium 4.4 mmol/L (3.5-5.1); Total Bilirubin 0.6 mg/dL (0.2-1.3); Total Protein 6.1 g/dL (6.3-8.2)
[2018-05-28 09:09] LABS: Partial Thromboplastin Time 23.3 sec (22.0-30.0); Prothrombin Time 9.7 sec (9.0-12.0)
[2018-05-28 09:17] LABS: Creatine Kinase <20 U/L (55-170)
[2018-05-28 09:30] LABS: Creatine Kinase MB 0.6 ng/mL (0.0-2.4); Troponin I 0.012 ng/mL (0.000-0.034)
--- NOTE | 2018-05-28 09:55 | XR ---
EXAMINATION TYPE: XR chest 2V DATE OF EXAM: 05/28/2018 HISTORY: difficulty breathing. REFERENCE: Previous study dated 04/23/2018. FINDINGS: There is some chronic scarring and pleural parenchymal change in the left mid thorax. Suppo sedly this relates to lung cancer. There is a right-sided pleural effusion with right basilar airspace disease. There is apparent elevat ion of the right hemidiaphragm. The heart is obscured. The overall appearance has not changed signifi cantly from previous. IMPRESSION: NO SIGNIFICANT CHANGE IN THE APPEARANCE OF THE CHEST.
[2018-05-28] MEDS ORDERED: methylPREDNISolone SOD SUCCI 125 MG/2 ML VIAL IV STA (10:33)
[2018-05-28] MEDS: IPRATROPIUM-ALBUTEROL 3 ML NEB INHALATION SCH ×3 (12:01→19:20)
[2018-05-28 13:32] VITALS: BMI 20.7
[2018-05-28 13:51] LABS: Appearance,Urine Turbid (Clear); Bacteria,Urine Rare /hpf; Bilirubin,Urine Negative (Negative); Blood,Urine Small (Negative); Color,Urine Yellow; Glucose,Urine (UA) Negative (Negative); Ketones,Urine Negative (Negative); Leukocyte Esterase,Urine Large (Negative); Mucus,Urine Many /hpf; Nitrite,Urine Positive (Negative); PH, Urine 6.5 (5.0-8.0); Protein,Urine 2+ (Negative); RBC,Urine >182 /hpf (0-5); Urobilinogen,Urine <2.0 mg/dL (<2.0); WBC,Urine >182 /hpf (0-5)
[2018-05-28 13:52] LABS: Specific Gravity,Urine 1.018 (1.001-1.035)
[2018-05-28] MEDS ORDERED: LOPERAMIDE 2 MG CAP PO PRN (17:03)
[2018-05-28] MEDS ORDERED: ACETAMINOPHEN TAB 325 MG TAB PO PRN (17:03)
[2018-05-28] MEDS ORDERED: MAGNESIUM HYDROXIDE 2,400 MG/10 ML CUP PO PRN (17:03)
[2018-05-28] MEDS ORDERED: BISACODYL 10 MG SUPP RECTAL PRN (17:03)
--- NOTE | 2018-05-28 17:21 | P.HPIM ---
History of Present Illness Patient is a pleasant 82-year-old gentleman [facility] as patient was hypoxic patient was on 900% nonrebreather subsequently switched to nasal cannula. Patient does have history of COPD wears 3 L of oxygen. group home resident nonambulatory and uses wheelchair. Patient does have a chronic Akins catheter, plan is to replace it patient declined the replacement of Akins catheter patient the urine looks abnormal because of the Akins catheter no signs of her symptoms no signs or symptoms of infection patient is bit tachycardic beyond that patient is doesn't have any leukocytosis doesn't have any fever. Patient is wheezing on exam will be started on oral steroids inhalational treatments doxycycline for bronchitis. Patient is thin built cachectic. Patient is complaining of shortness of breath unable to bring up much of the phlegm Review of Systems REVIEW OF SYSTEMS: CONSTITUTIONAL: No fever, no malaise, no fatigue. HEENT: No recent visual problems or hearing problems. Denied any sore throat. CARDIOVASCULAR: No chest pain, orthopnea, PND, no palpitations, no syncope. PULMONARY: As mentioned in HPI. GASTROINTESTINAL: No diarrhea, no nausea, no vomiting, no abdominal pain. Normoactive bowel sounds. NEUROLOGICAL: No headaches, no weakness, no numbness. HEMATOLOGICAL: Denies any bleeding or petechiae. GENITOURINARY: Denies any burning micturition, frequency, or urgency. MUSCULOSKELETAL/RHEUMATOLOGICAL: Denies any joint pain, swelling, or any muscle pain. ENDOCRINE: Denies any polyuria or polydipsia. The rest of the 14-point review of systems is negative. 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 History of Any Multi-Drug Resistant Organisms: None Reported Past Surgical History: Appendectomy, Tonsillectomy Additional Past Surgical History / Comment(s): AAA, NAYAN ROTATOR CUFF,NAYAN THUMB SX, LARYNGOSCOPY FOR HORSENESS,LT VOCAL CORD WEAKNESS.NEEDLE ASPIRATION LT LUNG MASS WAS POSITIVE FOR CANCER -PT STATED HE COMPLETED 5 RADIATION TREATMENTS. Past Anesthesia/Blood Transfusion Reactions: No Reported Reaction Additional Past Anesthesia/Blood Transfusion Reaction / Comment(s): blood transfusion Past Psychological History: No Psychological Hx Reported Smoking Status: Former smoker Past Alcohol Use History: None Reported Additional Past Alcohol Use History / Comment(s): STARTED SMOKING AT AGE 18 QUIT 2006 SMOKED 2 PPD Past Drug Use History: None Reported - Past Family History Father Family Medical History: Coronary Artery Disease (CAD) Mother Additional Family Medical History / Comment(s): ANEMIA Medications and Allergies Home Medications Medication Instructions Recorded Confirmed Type LORazepam [Ativan] 0.5 mg PO BID PRN 01/03/18 05/28/18 History Acetaminophen Tab [Tylenol] 650 mg PO Q4H PRN 04/23/18 05/28/18 History Bisacodyl [Dulcolax] 10 mg RECTAL DAILY PRN 04/23/18 05/28/18 History Dronabinol [Marinol] 2.5 mg PO BID@,17 04/23/18 05/28/18 History Lactobacillus Acidophilus 1 tab PO BID@,17 04/23/18 05/28/18 History [Acidophilus] Lactose-Reduced Food [Boost] 237 ml PO BID@,04/23/18 05/28/18 History Loperamide [Imodium] 2 mg PO DAILY PRN 04/23/18 05/28/18 History Magnesium Hydroxide [Milk of 2,400 mg PO DAILY PRN 04/23/18 05/28/18 History Magnesia] Menthol/Zinc Oxide [Calmoseptine 1 applic TOPICAL BID 04/23/18 05/28/18 History Ointment] Na Phos,M-B/Na Phos,Di-Ba [Fleet 133 ml RECTAL ONCE PRN 04/23/18 05/28/18 History Adult] Vits A and D/White Pet/Lanolin [A 1 applic TOPICAL BID 04/23/18 05/28/18 History and D Ointment] guaiFENesin [guaiFENesin Oral 100 mg PO Q4H PRN 04/23/18 05/28/18 History Solution] Ipratropium-Albuterol Nebulize 3 ml INHALATION RT-Q4H PRN #120 05/03/18 Rx [Duoneb 0.5 mg-3 mg/3 ml Soln] ampul.neb HYDROcodone/APAP 7.5-325MG [[place] 1 tab PO Q6HR PRN 05/28/18 05/28/18 History 7.5-325] Allergies Allergy/AdvReac Type Severity Reaction Status Date / Time ceftriaxone sodium Allergy Itching Verified 05/28/18 10:54 [From Rocephin] Iodinated Contrast- Oral and Allergy Anaphylaxis Verified 05/28/18 10:54 IV Dye [Iodinated Contrast Media - IV Dye] levofloxacin Allergy Itching Verified 05/28/18 10:54 Physical Exam Vitals: Vital Signs Temp Pulse Pulse Resp BP BP Pulse Ox 05/28/18 15:56 102 H 05/28/18 15:42 100 96 05/28/18 14:32 93 L 05/28/18 14:30 85 L 05/28/18 13:41 97.9 F 65 16 169/77 97 05/28/18 13:08 97.8 F 104 H 18 161/67 100 05/28/18 12:15 104 H 18 162/62 100 05/28/18 12:10 107 H 05/28/18 12:02 104 H 05/28/18 09:02 109 H 05/28/18 08:55 20 05/28/18 08:54 110 H 05/28/18 08:29 97.8 F 110 H 18 142/74 100 Intake and Output 05/28/18 05/28/18 05/28/18 06:59 14:59 22:59 Other: Voiding Method Indwelling Catheter Weight 56.699 kg PHYSICAL EXAMINATION: GENERAL: The patient is alert and oriented x3, not in any acute distress. Thin built cachectic HEENT: Pupils are round and equally reacting to light. EOMI. No scleral icterus. No conjunctival pallor. Normocephalic, atraumatic. No pharyngeal erythema. No thyromegaly. CARDIOVASCULAR: S1 and S2 present. No murmurs, rubs, or gallops. PULMONARY: Fluid Dynamicist wheezing on exam ABDOMEN: Soft, nontender, nondistended, normoactive bowel sounds. No palpable organomegaly. MUSCULOSKELETAL: No joint swelling or deformity. EXTREMITIES: No cyanosis, clubbing, or pedal edema. NEUROLOGICAL: Gross neurological examination did not reveal any focal deficits. SKIN: Patient has stage I ulceration or discoloration of the skin in the upper back no decubitus ulcers in the lower back. Akins catheter in place. Results CBC & Chem 7: 05/28/18 08:40 05/28/18 08:40 Labs: Abnormal Lab Results - Last 24 Hours (Table) 05/28/18 05/28/18 05/28/18 Range/Units 08:40 08:40 08:40 RBC 3.26 L (4.30-5.90) m/uL Hgb 9.7 L (13.0-17.5) gm/dL Hct 32.3 L (39.0-53.0) % MCHC 30.2 L (31.0-37.0) g/dL RDW 16.9 H (11.5-15.5) % Plt Count 469 H (150-450) k/uL Lymphocytes # 0.9 L (1.0-4.8) k/uL Carbon Dioxide 31 H (22-30) mmol/L BUN 27 H (9-20) mg/dL Glucose 113 H (74-99) mg/dL ALT 19 L (21-72) U/L Total Creatine Kinase <20 L (55-170) U/L Total Protein 6.1 L (6.3-8.2) g/dL Albumin 2.9 L (3.5-5.0) g/dL Urine Protein (Negative) Urine Blood (Negative) Ur Leukocyte Esterase (Negative) Urine RBC (0-5) /hpf Urine WBC (0-5) /hpf Urine WBC Clumps (None) /hpf Urine Bacteria (None) /hpf Urine Mucus (None) /hpf 05/28/18 Range/Units 10:10 RBC (4.30-5.90) m/uL Hgb (13.0-17.5) gm/dL Hct (39.0-53.0) % MCHC (31.0-37.0) g/dL RDW (11.5-15.5) % Plt Count (150-450) k/uL Lymphocytes # (1.0-4.8) k/uL Carbon Dioxide (22-30) mmol/L BUN (9-20) mg/dL Glucose (74-99) mg/dL ALT (21-72) U/L Total Creatine Kinase (55-170) U/L Total Protein (6.3-8.2) g/dL Albumin (3.5-5.0) g/dL Urine Protein 2+ H (Negative) Urine Blood Small H (Negative) Ur Leukocyte Esterase Large H (Negative) Urine RBC >182 H (0-5) /hpf Urine WBC >182 H (0-5) /hpf Urine WBC Clumps Many H (None) /hpf Urine Bacteria Rare H (None) /hpf Urine Mucus Many H (None) /hpf Thrombosis Risk Factor Assmnt - Choose All That Apply Any of the Below Risk Factors Present?: Yes Each Factor Represents 1 point: Abnormal pulmonary function (COPD) Other Risk Factors: Yes Each Risk Factor Represents 3 Points: Age 75 years or older, History of DVT/PE Other congenital or acquired thrombophilia - If yes, enter type in comment: No Thrombosis Risk Factor Assessment Total Risk Factor Score: 7 Thrombosis Risk Factor Assessment Level: High Risk Assessment and Plan Plan: -Acute on chronic hypercapnic respiratory failure: Secondary to COPD exacerbation systemic steroids inhalational treatments as mentioned about oxygen for bronchitis -Moderate protein calorie malnutrition -Gastroesophageal reflux disease -Hyperlipidemia -Hypertension -Tachycardia etiology is not clear if he is to have this chronic tachycardia will obtain TSH if his blood pressure can tolerate symptomatically treatment with metoprolol. Patient will need DVT and GI prophylaxis. -Mild acute renal failure IV fluids at 75 mL/h normal saline
[2018-05-28] MEDS: predniSONE 20 MG TAB PO SCH (18:09)
[2018-05-28] MEDS: SODIUM CHLORIDE 0.9% 1,000 ML IV SCH (18:09)
[2018-05-28] MEDS: HEPARIN SODIUM,PORCINE 5,000 UNIT/ML 1 ML VIAL SQ SCH (20:57)
[2018-05-28] MEDS: FAMOTIDINE 20 MG TAB PO SCH (20:57)
[2018-05-28] MEDS: DOXYCYCLINE 100 MG CAP PO SCH (20:57)
[2018-05-28] MEDS: MENTHOL-ZINC OXIDE OINT 113 GM TUBE TOPICAL SCH (20:57)
[2018-05-28] MEDS: guaiFENesin SYRUP 100MG/5ML 200 MG/10 ML CUP PO PRN (20:58)
[2018-05-29 06:49] LABS: Anisocytosis Slight; HCT 27.9 % (39.0-53.0); HGB 8.6 gm/dL (13.0-17.5); Hypochromasia Moderate; MCH 29.9 pg (25.0-35.0); MCHC 30.9 g/dL (31.0-37.0); MCV 96.7 fL (80.0-100.0); Mean Platelet Volume 7.2; Platelet Count 395 k/uL (150-450); RBC 2.88 m/uL (4.30-5.90); RDW 16.9 % (11.5-15.5); WBC 3.2 k/uL (3.8-10.6)
[2018-05-29] MEDS: IPRATROPIUM-ALBUTEROL 3 ML NEB INHALATION SCH ×4 (06:59→20:17)
[2018-05-29 07:02] LABS: Potassium 5.3 mmol/L (3.5-5.1)
[2018-05-29] MEDS: MENTHOL-ZINC OXIDE OINT 113 GM TUBE TOPICAL SCH ×2 (07:12→20:38)
[2018-05-29] MEDS: predniSONE 20 MG TAB PO SCH (07:13)
[2018-05-29] MEDS: FAMOTIDINE 20 MG TAB PO SCH ×2 (07:13→20:38)
[2018-05-29] MEDS: DOXYCYCLINE 100 MG CAP PO SCH ×2 (07:13→20:38)
[2018-05-29] MEDS: LACTOBACILLUS ACIDOPH & BULGAR 1 EACH PACKET PO SCH ×3 (07:13→16:21)
[2018-05-29] MEDS: HEPARIN SODIUM,PORCINE 5,000 UNIT/ML 1 ML VIAL SQ SCH ×2 (07:14→20:38)
[2018-05-29] MEDS: DRONABINOL 2.5 MG CAP PO SCH ×2 (07:15→16:19)
[2018-05-29] MEDS: SODIUM CHLORIDE 0.9% 1,000 ML IV SCH ×2 (07:15→20:30)
--- NOTE | 2018-05-29 11:27 | P.PN ---
Subjective 82-year-old admitted for COPD exacerbation clinically doing well probably can be discharged tomorrow on oral steroids. Constitutional: Denied any fatigue denied any fever. Cardio vascular: denied any chest pain, palpitations Gastrointestinal denied any nausea vomiting Pulmonary: Complaining of shortness of breath Neurologic denied any new focal deficits Objective - Vital Signs Vital signs: Vital Signs Temp 97.8 F 05/29/18 06:23 Pulse 97 05/29/18 11:00 Resp 16 05/29/18 08:05 BP 100/69 05/29/18 10:28 Pulse Ox 99 05/29/18 07:00 Intake & Output 05/28/18 05/29/18 05/29/18 18:59 06:59 18:59 Intake Total 400 Output Total 300 Balance 400 -300 Weight 56.699 kg Intake: Oral 400 Output: Urine 300 Other: Voiding Method Indwelling Catheter Indwelling Catheter Indwelling Catheter # Voids 1 - Exam PHYSICAL EXAMINATION: GENERAL: The patient is alert and oriented x3, not in any acute distress. Thin built cachectic HEENT: Pupils are round and equally reacting to light. EOMI. No scleral icterus. No conjunctival pallor. Normocephalic, atraumatic. No pharyngeal erythema. No thyromegaly. CARDIOVASCULAR: S1 and S2 present. No murmurs, rubs, or gallops. PULMONARY: Patient has good air entry bilateral lung is no wheezing or crackles ABDOMEN: Soft, nontender, nondistended, normoactive bowel sounds. No palpable organomegaly. MUSCULOSKELETAL: No joint swelling or deformity. EXTREMITIES: No cyanosis, clubbing, or pedal edema. NEUROLOGICAL: Gross neurological examination did not reveal any focal deficits. SKIN: Patient has stage I ulceration or discoloration of the skin in the upper back no decubitus ulcers in the lower back. Akins catheter in place. - Labs CBC & Chem 7: 05/29/18 06:30 05/29/18 06:30 Labs: Abnormal Lab Results - Last 24 Hours (Table) 05/28/18 05/28/18 05/29/18 Range/Units 10:10 18:42 06:30 WBC 3.2 L (3.8-10.6) k/uL RBC 2.88 L (4.30-5.90) m/uL Hgb 8.6 L (13.0-17.5) gm/dL Hct 27.9 L (39.0-53.0) % MCHC 30.9 L (31.0-37.0) g/dL RDW 16.9 H (11.5-15.5) % D-Dimer 3.51 H (<0.60) mg/L FEU Potassium (3.5-5.1) mmol/L BUN (9-20) mg/dL Glucose (74-99) mg/dL Urine Protein 2+ H (Negative) Urine Blood Small H (Negative) Ur Leukocyte Esterase Large H (Negative) Urine RBC >182 H (0-5) /hpf Urine WBC >182 H (0-5) /hpf Urine WBC Clumps Many H (None) /hpf Urine Bacteria Rare H (None) /hpf Urine Mucus Many H (None) /hpf 05/29/18 Range/Units 06:30 WBC (3.8-10.6) k/uL RBC (4.30-5.90) m/uL Hgb (13.0-17.5) gm/dL Hct (39.0-53.0) % MCHC (31.0-37.0) g/dL RDW (11.5-15.5) % D-Dimer (<0.60) mg/L FEU Potassium 5.3 H (3.5-5.1) mmol/L BUN 31 H (9-20) mg/dL Glucose 128 H (74-99) mg/dL Urine Protein (Negative) Urine Blood (Negative) Ur Leukocyte Esterase (Negative) Urine RBC (0-5) /hpf Urine WBC (0-5) /hpf Urine WBC Clumps (None) /hpf Urine Bacteria (None) /hpf Urine Mucus (None) /hpf Microbiology - Last 24 Hours (Table) 05/28/18 17:41 Urine Culture - Preliminary Urine,Catheterized Assessment and Plan Plan: -Acute on chronic hypercapnic respiratory failure: Secondary to COPD exacerbation systemic steroids inhalational treatments as mentioned about oxygen for bronchitis -Moderate protein calorie malnutrition -Gastroesophageal reflux disease -Hyperlipidemia -Hypertension -Tachycardia etiology is not clear if he is to have this chronic tachycardia will obtain TSH if his blood pressure can tolerate symptomatically treatment with metoprolol. Patient will need DVT and GI prophylaxis. -Mild acute renal failure IV fluids at 75 mL/h normal saline
[2018-05-29] MEDS ORDERED: NON-FORMULARY DRUG (Lactose-Reduced Food [Boost] 237 ML) PO SCH (12:00)
[2018-05-29] MEDS ORDERED: SODIUM POLYSTYRENE SULFONATE 15 GM/60 ML BOTTLE PO ONE (14:00)
[2018-05-30] MEDS: FAMOTIDINE 20 MG TAB PO SCH (08:56)
[2018-05-30] MEDS: predniSONE 20 MG TAB PO SCH (08:56)
[2018-05-30] MEDS: DRONABINOL 2.5 MG CAP PO SCH ×2 (08:56→16:19)
[2018-05-30] MEDS: HEPARIN SODIUM,PORCINE 5,000 UNIT/ML 1 ML VIAL SQ SCH ×2 (08:56→21:56)
[2018-05-30] MEDS: LACTOBACILLUS ACIDOPH & BULGAR 1 EACH PACKET PO SCH ×2 (08:57→16:19)
[2018-05-30] MEDS: MENTHOL-ZINC OXIDE OINT 113 GM TUBE TOPICAL SCH ×2 (09:00→21:57)
[2018-05-30] MEDS: IPRATROPIUM-ALBUTEROL 3 ML NEB INHALATION SCH ×4 (09:07→20:15)
[2018-05-30] MEDS: DOXYCYCLINE 100 MG CAP PO SCH ×2 (09:14→21:56)
[2018-05-30] MEDS: SODIUM CHLORIDE 0.9% 1,000 ML IV SCH ×2 (09:15→23:33)
[2018-05-30 12:00] LABS: Anisocytosis Slight; Basophils % (A) 0 %; Eosinophils % (A) 0 %; HCT 26.5 % (39.0-53.0); HGB 8.1 gm/dL (13.0-17.5); Hypochromasia Marked; Lymphocytes # (A) 0.5 k/uL (1.0-4.8); Lymphocytes % (A) 7 %; MCH 30.2 pg (25.0-35.0); MCHC 30.6 g/dL (31.0-37.0); MCV 98.8 fL (80.0-100.0); Macrocytosis Slight; Mean Platelet Volume 7.3; Monocytes # (A) 0.3 k/uL (0-1.0); Monocytes % (A) 4 %; Neutrophils # (A) 7.1 k/uL (1.3-7.7); Neutrophils % (A) 89 %; Platelet Count 371 k/uL (150-450); RBC 2.68 m/uL (4.30-5.90); RDW 16.7 % (11.5-15.5)
[2018-05-30 12:09] LABS: Albumin 2.7 g/dL (3.5-5.0); Potassium 4.8 mmol/L (3.5-5.1); Total Bilirubin 0.3 mg/dL (0.2-1.3); Total Protein 5.5 g/dL (6.3-8.2)
[2018-05-30] MEDS: guaiFENesin SYRUP 100MG/5ML 200 MG/10 ML CUP PO PRN (16:24)
[2018-05-31 00:25] VITALS: RESP 16
[2018-05-31] MEDS: IPRATROPIUM-ALBUTEROL 3 ML NEB INHALATION SCH ×2 (07:19→11:21)
[2018-05-31 07:46] VITALS: BP 132/62; TEMP 96.7
[2018-05-31] MEDS: DOXYCYCLINE 100 MG CAP PO SCH (07:46)
[2018-05-31] MEDS: DRONABINOL 2.5 MG CAP PO SCH (07:47)
[2018-05-31] MEDS: HEPARIN SODIUM,PORCINE 5,000 UNIT/ML 1 ML VIAL SQ SCH (07:47)
[2018-05-31] MEDS: LACTOBACILLUS ACIDOPH & BULGAR 1 EACH PACKET PO SCH (07:47)
[2018-05-31] MEDS: predniSONE 20 MG TAB PO SCH (07:47)
[2018-05-31] MEDS: MENTHOL-ZINC OXIDE OINT 113 GM TUBE TOPICAL SCH (07:48)
[2018-05-31] MEDS ORDERED: FAMOTIDINE 20 MG TAB PO SCH (09:00)
--- NOTE | 2018-05-31 11:21 | P.DS ---
Providers Date of admission: 05/28/18 10:35 Expected date of discharge: 05/31/18 Attending physician: Tom Maxwell Primary care physician: Diogo Junior Hospital Course: Final Diagnoses: -Acute on chronic hypercapnic respiratory failure: Secondary to COPD exacerbation, acute bronchitis -Moderate protein calorie malnutrition -Gastroesophageal reflux disease -Hyperlipidemia -Hypertension -Tachycardia etiology is not clear, TSH normal, resolved. -Mild acute renal failure Hospital course: This is a 82-year-old admitted for COPD exacerbation. Maintained on nebulized bronchodilators, steroids, antibiotics and gentle IV fluid hydration . Significant clinical improvement. Patient is being discharged back to [facility] subacute rehab in stable condition with guarded prognosis. GENERAL: The patient is alert and oriented x3, not in any acute distress. Thin built cachectic HEENT: Pupils are round and equally reacting to light. EOMI. No scleral icterus. No conjunctival pallor. Normocephalic, atraumatic. No pharyngeal erythema. No thyromegaly. CARDIOVASCULAR: S1 and S2 present. No murmurs, rubs, or gallops. PULMONARY: Patient has good air entry bilateral lung is no wheezing or crackles ABDOMEN: Soft, nontender, nondistended, normoactive bowel sounds. No palpable organomegaly. MUSCULOSKELETAL: No joint swelling or deformity. EXTREMITIES: No cyanosis, clubbing, or pedal edema. NEUROLOGICAL: Gross neurological examination did not reveal any focal deficits. SKIN: Patient has stage I ulceration or discoloration of the skin in the upper back no decubitus ulcers in the lower back. Akins catheter in place. The impression and plan of care has been dictated as directed. : I performed a history and examination of this patient, discussed the same with the dictator. I agree with the dictator's note ,documented as a scribe. Any additional findings or plans will be noted. Time taken: 35 minutes Patient Condition at Discharge: Stable Plan - Discharge Summary Discharge Rx Participant: Yes New Discharge Prescriptions: New Doxycycline [Vibramycin] 100 mg PO BID #10 cap Famotidine [Pepcid] 20 mg PO DAILY tab Ipratropium-Albuterol Nebulize [Duoneb 0.5 mg-3 mg/3 ml Soln] 3 ml INHALATION RT-QID ampul.neb predniSONE 10 mg PO DIRECTED #30 tab Continue Vits A and D/White Pet/Lanolin [A and D Ointment] 1 applic TOPICAL BID Magnesium Hydroxide [Milk of Magnesia] 2,400 mg PO DAILY PRN PRN Reason: Constipation Loperamide [Imodium] 2 mg PO DAILY PRN PRN Reason: Diarrhea guaiFENesin [guaiFENesin Oral Solution] 100 mg PO Q4H PRN PRN Reason: Cough Na Phos,M-B/Na Phos,Di-Ba [Fleet Adult] 133 ml RECTAL ONCE PRN PRN Reason: Constipation Bisacodyl [Dulcolax] 10 mg RECTAL DAILY PRN PRN Reason: Shortness Of Breath Acetaminophen Tab [Tylenol] 650 mg PO Q4H PRN PRN Reason: Pain Lactose-Reduced Food [Boost] 237 ml PO BID@ Lactobacillus Acidophilus [Acidophilus] 1 tab PO BID@ Menthol/Zinc Oxide [Calmoseptine Ointment] 1 applic TOPICAL BID Ipratropium-Albuterol Nebulize [Duoneb 0.5 mg-3 mg/3 ml Soln] 3 ml INHALATION RT-Q4H PRN #120 ampul.neb PRN Reason: Shortness Of Breath Or Wheezing Dronabinol [Marinol] 2.5 mg PO BID@ #6 cap Discontinued LORazepam [Ativan] 0.5 mg PO BID PRN PRN Reason: Anxiety HYDROcodone/APAP 7.5-325MG [[place] 7.5-325] 1 tab PO Q6HR PRN PRN Reason: Pain Discharge Medication List Acetaminophen Tab [Tylenol] 650 mg PO Q4H PRN 04/23/18 [History] Bisacodyl [Dulcolax] 10 mg RECTAL DAILY PRN 04/23/18 [History] Lactobacillus Acidophilus [Acidophilus] 1 tab PO BID@,04/23/18 [History] Lactose-Reduced Food [Boost] 237 ml PO BID@,04/23/18 [History] Loperamide [Imodium] 2 mg PO DAILY PRN 04/23/18 [History] Magnesium Hydroxide [Milk of Magnesia] 2,400 mg PO DAILY PRN 04/23/18 [History] Menthol/Zinc Oxide [Calmoseptine Ointment] 1 applic TOPICAL BID 04/23/18 [ History] Na Phos,M-B/Na Phos,Di-Ba [Fleet Adult] 133 ml RECTAL ONCE PRN 04/23/18 [History ] Vits A and D/White Pet/Lanolin [A and D Ointment] 1 applic TOPICAL BID 04/23/18 [History] guaiFENesin [guaiFENesin Oral Solution] 100 mg PO Q4H PRN 04/23/18 [History] Ipratropium-Albuterol Nebulize [Duoneb 0.5 mg-3 mg/3 ml Soln] 3 ml INHALATION RT -Q4H PRN #120 ampul.neb 05/03/18 [Rx] Doxycycline [Vibramycin] 100 mg PO BID #10 cap 05/31/18 [Rx] Dronabinol [Marinol] 2.5 mg PO BID@,17 #6 cap 05/31/18 [Rx] Famotidine [Pepcid] 20 mg PO DAILY tab 05/31/18 [Rx] Ipratropium-Albuterol Nebulize [Duoneb 0.5 mg-3 mg/3 ml Soln] 3 ml INHALATION RT -QID ampul.neb 05/31/18 [Rx] predniSONE 10 mg PO DIRECTED #30 tab 05/31/18 [Rx] Follow up Appointment(s)/Referral(s): Diogo Junior MD [Primary Care Provider] - 3 Days Activity/Diet/Wound Care/Special Instructions: Negro pt would like flu vaccine upon dc CBC, BMP in 3 days Discharge Disposition: TRANSFER TO SNF/F
[2018-05-31 11:23] VITALS: PULSE 90
--- NOTE | 2018-05-31 11:26 | P.PN ---
Subjective Progress Note Date: 05/30/18 Progress note being dictated for Dr. Maxwell. Interval history: This is a 82-year-old admitted for COPD exacerbation. Maintained on nebulized bronchodilators, steroids, antibiotics and gentle IV fluid hydration . Significant clinical improvement. Denies chest pain, palpitations. Objective - Vital Signs Vital signs: Vital Signs Temp 98.6 F 05/30/18 13:00 Pulse 92 05/30/18 17:13 Resp 19 05/30/18 13:00 BP 135/75 05/30/18 13:00 Pulse Ox 99 05/30/18 13:00 Intake & Output 05/30/18 05/30/18 05/31/18 06:59 18:59 06:59 Intake Total 0 Output Total 520 Balance -520 Intake: Intake, IV Titration 0 Amount Sodium Chloride 0.9% 1, 0 000 ml @ 75 mls/hr IV . [id number] Rx#:[id number] Output: Urine 520 Other: Voiding Method Indwelling Catheter Indwelling Catheter - Exam GENERAL: The patient is alert and oriented x3, not in any acute distress. Thin built cachectic HEENT: Pupils are round and equally reacting to light. EOMI. No scleral icterus. No conjunctival pallor. Normocephalic, atraumatic. CARDIOVASCULAR: S1 and S2 present. No murmurs, rubs, or gallops. PULMONARY: Patient has good air entry bilateral lung is no wheezing or crackles ABDOMEN: Soft, nontender, nondistended, normoactive bowel sounds. No palpable organomegaly. MUSCULOSKELETAL: No joint swelling or deformity. EXTREMITIES: No cyanosis, clubbing, or pedal edema. NEUROLOGICAL: Gross neurological examination did not reveal any focal deficits. SKIN: Patient has stage I ulceration or discoloration of the skin in the upper back no decubitus ulcers in the lower back. - Labs CBC & Chem 7: 05/30/18 11:27 05/30/18 11:27 Labs: Abnormal Lab Results - Last 24 Hours (Table) 05/30/18 05/30/18 Range/Units 11:27 11:27 RBC 2.68 L (4.30-5.90) m/uL Hgb 8.1 L (13.0-17.5) gm/dL Hct 26.5 L (39.0-53.0) % MCHC 30.6 L (31.0-37.0) g/dL RDW 16.7 H (11.5-15.5) % Lymphocytes # 0.5 L (1.0-4.8) k/uL BUN 32 H (9-20) mg/dL Glucose 104 H (74-99) mg/dL ALT 12 L (21-72) U/L Total Protein 5.5 L (6.3-8.2) g/dL Albumin 2.7 L (3.5-5.0) g/dL Microbiology - Last 24 Hours (Table) 05/28/18 09:50 Blood Culture - Preliminary Blood No Growth after 48 hours 05/28/18 17:41 Urine Culture - Preliminary Urine,Catheterized Gram Neg Bacilli Gram Neg Bacilli#2 Gram Neg Bacilli#3 Assessment and Plan Assessment: -Acute on chronic hypercapnic respiratory failure: Secondary to COPD exacerbation, acute bronchitis -Moderate protein calorie malnutrition -Gastroesophageal reflux disease -Hyperlipidemia -Hypertension -Tachycardia etiology is not clear, TSH normal, resolved. -Mild acute renal failure Plan: Continue current medication regime ,monitoring and symptomatic treatment. Maintain nebulized bronchodilators, steroids, antibiotics. Discharge planning in progress pending confirmation with public guardian as per social work for return to [facility]. The impression and plan of care has been dictated as directed. : I performed a history and examination of this patient, discussed the same with the dictator. I agree with the dictator's note ,documented as a scribe. Any additional findings or plans will be noted.
== END 2018-05-31 12:20 ==
LOC: EC 08:25 → 5ONC 10:35 → 4SSUR 05-29 11:52 → 5ONC 05-29 11:52 → 4SSUR 05-30 13:28
PROVIDERS: ADMIT Hospitalist; ATTEND Hospitalist
DX: J44.1 Chronic obstructive pulmonary disease with (acute) exacerbation (principal); J44.0 Chronic obstructive pulmonary disease with (acute) lower respiratory infection; J96.22 Acute and chronic respiratory failure with hypercapnia; J96.21 Acute and chronic respiratory failure with hypoxia; J20.9 Acute bronchitis, unspecified; E44.0 Moderate protein-calorie malnutrition; K21.9 Gastro-esophageal reflux disease without esophagitis; I50.9 Heart failure, unspecified; I11.0 Hypertensive heart disease with heart failure; E78.5 Hyperlipidemia, unspecified; N17.9 Acute kidney failure, unspecified; R00.0 Tachycardia, unspecified; Z99.81 Dependence on supplemental oxygen; Z79.899 Other long term (current) drug therapy; Z88.1 Allergy status to other antibiotic agents; Z91.041 Radiographic dye allergy status; Z86.718 Personal history of other venous thrombosis and embolism; Z87.01 Personal history of pneumonia (recurrent); M47.22 Other spondylosis with radiculopathy, cervical region; Z92.3 Personal history of irradiation; Z87.09 Personal history of other diseases of the respiratory system; D64.9 Anemia, unspecified; C34.32 Malignant neoplasm of lower lobe, left bronchus or lung; Z87.891 Personal history of nicotine dependence; Z82.49 Family history of ischemic heart disease and other diseases of the circulatory system; Z99.3 Dependence on wheelchair; Z96.0 Presence of urogenital implants
CPT/HCPCS: 99285; 96374 ×2; 96361; 96372 ×4; 36415; 94640 ×8; 94760 ×2; 93005; 97162; 97166; 85379; 83880; 80053 ×2; 80048; 84443; 82550; 82553; 83735; 84484; 85025 ×2; 85027; 85610; 85730; 81001; 87040; 87086; 87077; 87186; 71046; G0378 ×4; J1644 ×3; J2930; Q0167 ×2; J7512 ×3